=== PATIENT | male | born 1945 | race Caucasian/White ===

== ENCOUNTER 2017-02-21 13:41 | Emergency (ER) | payer MEDICARE, BC ==
--- NOTE | 2017-03-20 13:26 | EKG ---
Test Reason : Blood Pressure : / mmHG Vent. Rate : 056 BPM Atrial Rate : 056 BPM P-R Int : 276 ms QRS Dur : 116 ms QT Int : 490 ms P-R-T Axes : 016 003 176 degrees QTc Int : 472 ms Sinus bradycardia with 1st degree A-V block Inferior infarct , age undetermined T wave abnormality, consider lateral ischemia Abnormal ECG Confirmed by TOSIN DWYER ([id number]), development editor LOUANN BURK ([id number]) on 03/20/2017 1:26:10 PM Referred By: Confirmed By:TOSIN DWYER
== END 2017-02-21 14:41 | disposition home or self-care (01) ==
LOC: ERS 13:41
DX: I95.1 Orthostatic hypotension (principal); I25.2 Old myocardial infarction; I10 Essential (primary) hypertension; Z79.82 Long term (current) use of aspirin; Z79.899 Other long term (current) drug therapy; Z79.84 Long term (current) use of oral hypoglycemic drugs
CPT/HCPCS: 93005

== ENCOUNTER 2017-05-14 16:43 | Inpatient (IN) | payer MEDICARE, BC ==
[~2017-05-14 16:43] MED LIST: ISOVUE-370 76%-LOCM 1 ML ONE
[2017-05-14] MEDS ORDERED: Ondansetron HCl/PF 4 MG/2 ML Vial ONE (16:57)
[2017-05-14 17:12] LABS: #Eosinphils 0.3 thou/uL (0.0-0.7); #Lymphocytes 2.3 thou/uL (1.20-3.40); #Monocytes 0.7 thou/uL (0.11-0.59); #Neutrophils 6.2 thou/uL (1.40-6.50); %Basophils 0.5 % (0.0-1.0); %Eosinophils 3.6 % (0.0-10.0); %Lymphocytes 24.1 % (21.0-51.0); %Monocytes 7.5 % (0.0-10.0); %Neutrophils 64.4 % (42.0-75.0); Mean Corpuscular HGB CONC 32.7 g/dL (32.0-36.0); Mean Corpuscular Hemoglobin 28.7 pg (27.0-31.0); Mean Corpuscular Volume 87.7 fl (80.0-94.0); Mean Platelet Volume 6.8 fL (7.4-10.4); Platelet Count 263 thou/uL (130-400); RBC Distribution Width 13.8 % (11.5-14.5); Red Blood Cell (RBC) Count 4.54 mill/uL (4.70-6.10); White Blood Cell (WBC) Count 9.6 thou/uL (4.8-10.8)
[2017-05-14 17:31] LABS: ALT (SGPT) 21 U/L (8-55); AST (SGOT) 23 U/L (5-34); Albumin 4.1 g/dL (3.4-4.8); Alkaline Phosphatase 58 U/L (40-150); Anion Gap 15 mmol/L (10-20); BUN (Urea Nitrogen) 12 mg/dL (8.4-25.7); Bilirubin, Total 0.8 mg/dL (0.2-1.2); CK (CPK) 70 U/L (30-200); Calc. Creatinine Clearance 0 mL/min (70-130); Calcium 9.7 mg/dL (7.8-10.44); Carbon Dioxide 23 mmol/L (23-31); Chloride 106 mmol/L (98-107); Estimated GFR-MDRD 77; Globulin 3.7 g/dL (2.4-3.5); Glucose 102 mg/dL (83-110); Lipase 15 U/L (8-78); Potassium 4.3 mmol/L (3.5-5.1); Protein, Total 7.8 g/dL (5.8-8.1); Sodium 140 mmol/L (136-145)
[2017-05-14 17:35] LABS: CKMB 2.3 ng/mL (0-6.6)
[2017-05-14 17:45] LABS: Troponin I 1.037 ng/mL (< 0.028)
--- NOTE | 2017-05-14 18:03 | RAD ---
PORTABLE UPRIGHT FRONTAL CHEST RADIOGRAPH 05/14/17 COMPARISON: 04/06/16 HISTORY: Chest pain. FINDINGS: Stable prominence of the cardiac silhouette. Stable midline sternotomy wires and mediastinal clips. N o pneumothorax, pleural fluid, lobar consolidation, or alveolar edema. IMPRESSION: Stable appearance of the chest. No focal consolidation or alveolar edema. POS: H
[2017-05-14] MEDS ORDERED: Enoxaparin Sodium 100 MG/ML SYRINGE ONE (18:52)
--- NOTE | 2017-05-14 19:06 | CT ---
CT ANGIOGRAM OF THE CHEST AND ABDOMEN 05/14/17 COMPARISON: None. HISTORY: Upper epigastric pain, pain radiating into upper abdomen. Assess for abdominal aortic aneurysm or dis section. TECHNIQUE: Serial axial CT imaging at 2.5 mm intervals obtained from the thoracic inlet through the bifurcation of the abdominal aorta with IV contrast using a CT angiogram protocol. Coronal and sagittal 3D reform atted imaging obtained. FINDINGS: There is no axillary, mediastinal, or hilar lymphadenopathy seen. Midline sternotomy wires and medias tinal clips are present, evidence of prior CABG. There is no significant pleural, pericardial or mediastinal fluid. There is no pneumothorax seen on e ither side. There are scattered mild peripheral areas of increased linear density noted within bilateral upper lo bes, left greater than right, the right middle lobe laterally, and bilateral lower lobes inferiorly, left greater than right. Peripheral patchy reticulonodular densities are noted within the inferior as pect of bilateral lower lobes, left greater than right, etiology and significance uncertain given lac k of comparison imaging. No enlarged mediastinal or hilar lymph nodes. The thoracic aorta demonstrates atherosclerotic calcification at the level of the arch and descending thoracic aorta, mild. There is no evidence for aneurysm or dissection involving the thoracic aorta. Evaluation of the imaged bowel is unremarkable, limited without oral contrast media. There is nonspecific mild gallbladder distention. The gallbladder measuring 5.8 cm in greatest transv erse dimension. Hepatic and splenic granulomata are noted. There is pancreatic atrophy. A duodenal diverticulum is present. There is a mass within the adrenal gland on the left, measuring 2.5 cm, with Hounsfield units of 65-7 0. Mild bilateral renal cortical thinning is noted, left greater than right. Subcentimeter mid pole nalini l hypodensity noted anteriorly on the left, too small to characterize. Incidental note is made of diverticulosis of the descending colon. The abdominal aorta demonstrates no evidence for aneurysm or dissection. There is atherosclerotic calcification of the infrarenal abdominal aorta. there is atherosclerotic ca lcification involving bilateral common iliac arteries in the imaged portions of bilateral internal an d external iliac arteries. No abdominal lymphadenopathy. Osseous structures demonstrate multilevel degenerative change within the spine, primarily effecting t he facet joints of the lower lumbar spine. There is multilevel mid thoracic spine anterior osteophyte formation on the right. There is no worrisome lytic or blastic bone lesion. IMPRESSION: 1. No evidence for abdominal or thoracic aortic aneurysm or dissection. 2. Mild patchy reticulonodular densities noted peripherally within the lung bases, left greater than right. Findings may be chronic in nature. A mild degree of infectious pneumonitis cannot be excl uded. 3. Nonspecific adrenal mass on the left. This does not meet criteria for an adrenal adenoma and thus followup CT examination using an adrenal mass protocol is advised on a nonemergent basis. 4. Nonspecific mild gallbladder distention. 5. Diverticulosis of the descending colon. POS: IRWIN
[2017-05-14] MEDS ORDERED: Nitroglycerin 0.4 MG TAB (25 Tab Bottle) SL PRN (20:20)
[2017-05-14] MEDS ORDERED: Ondansetron HCl/PF 4 MG/2 ML Vial IVP PRN ×2 (20:22→22:49)
[2017-05-14] MEDS ORDERED: Acetaminophen 325 MG TAB PO PRN ×2 (20:22→22:49)
[2017-05-14] MEDS ORDERED: Bisacodyl 10 MG SUPP PR PRN (20:22)
[2017-05-14] MEDS ORDERED: HYDROcodone/Acetaminophen 5/325 mg Tablet PO PRN ×2 (20:22→22:49)
[2017-05-14] MEDS ORDERED: Milk Of Magnesia 30 ML UDCUP PO PRN ×3 (20:22→22:49)
[2017-05-14] MEDS ORDERED: Mag-Al 1200 mg/1200 mg/30 ML UDCUP ONE (20:49)
[2017-05-14] MEDS ORDERED: Lidocaine Viscous Sol 2% 15 ml UD Cup ONE (20:49)
[2017-05-14] MEDS ORDERED: Docusate 100 MG CAP PO SCH (21:00)
[2017-05-14 21:50] LABS: Critical Call Chem Troponin I RESULT DECREASING; Troponin I 0.926 ng/mL (< 0.028)
[2017-05-14] MEDS ORDERED: Ibuprofen 800 MG TAB ONE (21:55)
[2017-05-14] MEDS ORDERED: Nitroglycerin 0.4 MG TAB (25 Tab Bottle) PO PRN (22:49)
[2017-05-14] MEDS ORDERED: HumaLOG 300 UNITS/3 ML VIAL SC PRN (22:49)
[2017-05-14] MEDS ORDERED: Dextrose 5% in Water 1,000 ML IV PRN (22:49)
[2017-05-14] MEDS ORDERED: Temazepam 15 MG CAP PO PRN (22:49)
[2017-05-14] MEDS ORDERED: Benzonatate 100 MG CAP PO PRN (22:49)
[2017-05-14] MEDS ORDERED: Enalaprilat Dihydrate 1.25 MG/ML VIAL SLOW IVP PRN (22:49)
[2017-05-14] MEDS ORDERED: Dextrose 50% Abboject 50 ML SYRINGE SLOW IVP PRN (22:49)
[2017-05-14] MEDS ORDERED: Ondansetron ODT 4 MG TAB PO PRN (22:49)
[2017-05-14] MEDS ORDERED: Morphine 5 MG/ML SYRINGE SLOW IVP PRN (22:49)
[2017-05-14] MEDS ORDERED: Nitroglycerin 2% Ointment 1 INCH/1 GM Packet TOP SCH (23:00)
[2017-05-14] MEDS: Morphine 5 MG/ML SYRINGE SLOW IVP PRN (23:37)
--- NOTE | 2017-05-14 23:43 | HP ---
PRIMARY CARE PHYSICIAN: Malcom Wei M.D. CHIEF COMPLAINT: Epigastric pain. HISTORY OF PRESENT ILLNESS: Mr. Rosen is a pleasant 72-year-old gentleman that has a history of hyp ertension, diabetes mellitus, and coronary artery disease. He also has a history of chronic systolic heart failure with an ejection fraction of 35% to 40%. He was in his usual state of health until . He had gone to [place] to check on a condo that he has. When he started having severe epig astric pain and he says it was radiating to both rib cages. There, he had gone to the hospital in [facility], they had checked an EKG and said that there was no change from a previous one that he had had a few years prior, monitor him overnight and discharged him home. He says that the pain calm down. Then, he had to drive back to the [facility] and albeit through a snowstorm and his says it was very stressful drive. Then, he arrived here, he was walking around in the [place] and around 2 :00 p.m., he started having very intense pain again in the epigastric region. This time he had some nausea, but no vomiting. He felt very weak, had to sit down. For this reason, he drove himself to [facility] emergency room. In the ER, he had a troponin which was drawn and it was elevated at 1.037. EKG s howed an old inferior AL, but no new changes. He is being admitted for non-ST elevation myocardial i nfarction. The patient still has about 2/3 pain in the epigastric region. He denies any PND, no ort hopnea. He denies any lower extremity edema. He says he did have problems like that, but it stopped over the summer. REVIEW OF SYSTEMS: Constitutional: There have been no fevers, chills, no night sweats, no weight lo ss. HEENT: No headaches, no dizziness, no visual changes, no sore throat, rhinorrhea, neck pain, no adenopathy. Pulmonary: No hemoptysis, no cough, no wheezing. Cardiovascular: As the history of p resent illness. Gastrointestinal: No abdominal pain. He has had some nausea, no vomiting, no marin e in bowels. Genitourinary: No urinary frequency, hematuria, no hesitancy. Neurologic: No focal w eakness, numbness, no seizures. Musculoskeletal: No muscle pain, weakness or joint pains. Skin and Integument: No skin changes. No rash. Psychiatric: He has had a lot of stress related to some da mage that was done for his vacation condominium, but no depression. PAST MEDICAL HISTORY: Significant for chronic systolic heart failure with an ejection fraction of 35 % to 40% and moderate MR; coronary artery disease; hypertension; diabetes mellitus, type 2; hyperlipi demia. PAST SURGICAL HISTORY: He has had a bypass grafting x4, an attempt at a stent, 2 of that occluded gr afts, but this was unsuccessful. He has had a hernia repair. ALLERGIES: PENICILLIN. FAMILY HISTORY: Significant for COPD. SOCIAL HISTORY: He is , has two sons. He is a nonsmoker, nondrinker and he wishes to be a [employer]. CURRENT MEDICATIONS: Include aspirin 325 mg daily, atorvastatin 80 mg daily, carvedilol 6.25 mg tres y, Lasix 40 mg once a day, isosorbide mononitrate 60 mg once a day, lisinopril 10 mg twice a day, met formin 1000 mg twice a day, temazepam 30 mg daily, allopurinol 300 mg daily, Ranexa 1000 mg twice marc ly and Zetia 5 mg daily. PHYSICAL EXAMINATION: GENERAL: He is alert and oriented. He appears to be in no acute distress. VITAL SIGNS: Blood pressure was 163/103, heart rate 50, respiratory rate is 16, temperature is 97.7. HEENT: Pupils are equal, round, and reactive. Extraocular muscles are intact. His sclerae are anic teric. Throat: There is no erythema, no exudates. NECK: No adenopathy, no bruits. LUNGS: He has got some bilateral crackles, but they are very fine crackles. CARDIOVASCULAR: He has a normal S1, S2. He did have a grade 2/6 systolic murmur. ABDOMEN: Obese, it is soft, it is nontender, nondistended. Positive for bowel sounds. There is no rebound or guarding. EXTREMITIES: There is no clubbing, cyanosis, no edema. NEUROLOGICALLY: The exam is nonfocal. SIGNIFICANT LABORATORY AND X-RAY FINDINGS: His chest x-ray showed no focal infiltrates or edema. He had a CT dissection protocol showing no evidence for intra-abdominal or thoracic aortic aneurysm. T here are some mild reticulonodular densities in the lung bases, left greater than right, could be a c hronic or an infectious pneumonitis. There is a nonspecific adrenal mass on the left. Sodium was 14 0, potassium 4.3, chloride is 106, CO2 is 23, BUN of 12, creatinine 0.96, glucose was 102. White blo od cell count was 9.6, hemoglobin 13, hematocrit is 39.8, platelet count is 263. ASSESSMENT AND PLAN: 1. This is a pleasant 72-year-old gentleman that presents to the emergency room with complaints of e pigastric pain. His symptoms are most likely related to an acute coronary syndrome. He has a known history of coronary artery disease and his troponin is elevated. For this reason, he will be admitte d to telemetry. We will start him on aspirin, nitrates, and Lovenox. We will continue his beta bloc ker. Consult Cardiology in the a.m. He may also need morphine for pain control as he has some ongoi ng discomfort. 2. With regards to diabetes, his metformin will be held in the event that he needs a cardiac cathete rization and he will be placed on a sliding scale insulin. His blood pressure is little bit elevated . Hopefully, with the nitrate, this will help the blood pressure. If not, p.r.n. medication to help lower the blood pressure such as Vasotec can be used. The patient is concerned that his symptoms ar e more GI related and not cardiac. However, I did explain to him with elevated troponin, we need to rule out cardiac causes first. Should cardiac causes be ruled out, then a GI workup can be undertake n.
[2017-05-15 00:02] LABS: Critical Call Chem Troponin I RESULT DECREASING; Troponin I 0.891 ng/mL (< 0.028)
[2017-05-15] MEDS: Morphine 5 MG/ML SYRINGE SLOW IVP PRN ×2 (04:03→07:54)
[2017-05-15] MEDS: Nitroglycerin 2% Ointment 1 INCH/1 GM Packet TOP SCH ×3 (05:23→21:09)
[2017-05-15 05:36] LABS: Anion Gap 14 mmol/L (10-20); BUN (Urea Nitrogen) 12 mg/dL (8.4-25.7); Calc. Creatinine Clearance 107 mL/min (70-130); Calcium 9.3 mg/dL (7.8-10.44); Carbon Dioxide 21 mmol/L (23-31); Cardiac Risk 5.1 (Less than 4.5); Chloride 106 mmol/L (98-107); Cholesterol 138 mg/dl (< 200 Desired); Estimated GFR-MDRD Greater than 90; Glucose 150 mg/dL (83-110); HDL Cholesterol 27 mg/dL (>60 Neg Risk); LDL Cholesterol, Calculated 89 mg/dL; Potassium 4.2 mmol/L (3.5-5.1); Sodium 137 mmol/L (136-145); Triglycerides 109 mg/dL (Less than 150)
[2017-05-15 05:40] LABS: Critical Call Chem Troponin I RESULT DECREASING; Troponin I 0.765 ng/mL (< 0.028)
[2017-05-15] MEDS ORDERED: Loratadine 10 MG TAB PO PRN (07:21)
[2017-05-15] MEDS ORDERED: Artificial Tears 18 DROP/0.9 ML EA EYE PRN (07:21)
[2017-05-15] MEDS ORDERED: Diabetic Tussin 200 MG/10 ML UDCUP PO PRN (07:21)
[2017-05-15] MEDS ORDERED: Mag-Al 1200 mg/1200 mg/30 ML UDCUP PO PRN (07:21)
[2017-05-15] MEDS ORDERED: hydrALAZINE 20 MG/ML VIAL SLOW IVP PRN (07:21)
[2017-05-15] MEDS ORDERED: Loperamide HCl 2 MG CAP PO PRN (07:21)
[2017-05-15] MEDS ORDERED: Sodium Chloride 0.65% Nasal 44 ML BOT EA NARE PRN (07:21)
[2017-05-15] MEDS ORDERED: Eucerin (Mineral Oil/Petrolatum,White) 30 gm Jar TOP PRN (07:21)
[2017-05-15] MEDS: Aspirin 325 MG TAB PO SCH (07:53)
[2017-05-15] MEDS: Allopurinol 300 MG TAB PO SCH (07:53)
[2017-05-15] MEDS: Carvedilol 6.25 MG TAB PO SCH ×2 (07:53→21:06)
[2017-05-15] MEDS: Ezetimibe 10 MG TAB PO SCH (07:54)
[2017-05-15] MEDS: Multivitamin W/ Minerals 1 TAB PO SCH (07:56)
[2017-05-15] MEDS: Docusate 100 MG CAP PO SCH ×2 (07:56→21:06)
[2017-05-15] MEDS ORDERED: Enoxaparin Sodium 30 MG/0.3 ML SYRINGE SC SCH (08:00)
[2017-05-15] MEDS ORDERED: Famotidine 20 MG TAB PO SCH (09:00)
[2017-05-15] MEDS ORDERED: Enoxaparin Sodium 100 MG/ML SYRINGE SC SCH (09:00)
[2017-05-15] MEDS ORDERED: Aspirin 325 MG TAB PO SCH (09:00)
[2017-05-15] MEDS ORDERED: Lisinopril 10 MG TAB PO SCH (09:00)
[2017-05-15] MEDS ORDERED: Carvedilol 6.25 MG TAB PO SCH (09:00)
--- NOTE | 2017-05-15 09:57 | PDOC.PN ---
- Subjective Encounter Start Date: 05/15/17 Encounter Start Time: 08:30 Patient seen and examined. this morning he has again epigastric abdominal pain, No overnight events - Objective Resuscitation Status: Resuscitation Status FULL:Full Resuscitation MAR Reviewed: Yes Vital Signs & Weight: Vital Signs (12 hours) Temp Pulse Resp BP BP Pulse Ox 05/15/17 07:54 180/106 H 05/15/17 07:53 180/106 H 05/15/17 07:47 98.8 F 74 16 186/99 H 96 05/15/17 04:02 180/106 H 05/15/17 03:31 98.7 F 82 15 180/106 H 97 05/15/17 02:25 96 05/14/17 22:30 98.2 F 65 16 168/85 H 97 05/14/17 22:25 98.2 F 65 16 168/85 H 97 Weight Weight 198 lb 4.8 oz I&O: 05/14/17 05/15/17 05/16/17 06:59 06:59 06:59 Intake Total 240 Output Total 50 Balance 190 Result Diagrams: 05/14/17 17:00 05/15/17 04:47 Additional Labs: Accuchecks 05/15/17 05:54 POC Glucose 158 H EKG Reviewed by me: Yes (nsr) Phys Exam - Physical Examination Constitutional: NAD HEENT: PERRLA, moist MMs, sclera anicteric Neck: no JVD, supple Respiratory: no wheezing, no rales, no rhonchi Cardiovascular: RRR, no significant murmur, no rub Gastrointestinal: soft, non-tender, no distention, positive bowel sounds Musculoskeletal: no edema, pulses present Neurological: non-focal, normal sensation, moves all 4 limbs Psychiatric: normal affect, A&O x 3 Skin: no rash, normal turgor Dx/Plan (1) NSTEMI (non-ST elevated myocardial infarction) Code(s): I21.4 - NON-ST ELEVATION (NSTEMI) MYOCARDIAL INFARCTION Status: Acute (2) Chronic systolic heart failure Code(s): I50.22 - CHRONIC SYSTOLIC (CONGESTIVE) HEART FAILURE Status: Chronic (3) Diabetes type 2, controlled Code(s): E11.9 - TYPE 2 DIABETES MELLITUS WITHOUT COMPLICATIONS Status: Chronic (4) Dyslipidemia Code(s): E78.5 - HYPERLIPIDEMIA, UNSPECIFIED Status: Chronic (5) Gout Code(s): M10.9 - GOUT, UNSPECIFIED Status: Chronic (6) Hypotension Status: Chronic - Plan cont current plan of care * home medication reconciled * selected home medication started * currently on [facility] tehrapy for NSTEMI, including lovenox * cardiology consulted * if he had no echo done recently at cardiology office, will do here in hospital * medication reviewed as below * symptomatic treatment. Review of Systems - Review of Systems Constitutional: negative: fever, chills, sweats, weakness, malaise, other ENT: negative: Ear Pain, Ear Discharge, Nose Pain, Nose Discharge, Nose Congestion, Mouth Pain, Mouth Swelling, Throat Pain, Throat Swelling, Other Respiratory: negative: Cough, Dry, Shortness of Breath, Hemoptysis, SOB with Excertion, Pleuritic Pain, Sputum, Wheezing Cardiovascular: negative: chest pain, palpitations, orthopnea, paroxysmal nocturnal dyspnea, edema, light headedness, other Gastrointestinal: Abdominal Pain. negative: Nausea, Vomiting, Diarrhea, Constipation, Melena, Hematochezia, Other Genitourinary: negative: Dysuria, Frequency, Incontinence, Hematuria, Retention , Other Musculoskeletal: negative: Neck Pain, Shoulder Pain, Arm Pain, Back Pain, Hand Pain, Leg Pain, Foot Pain, Other Skin: negative: Rash, Lesions, Chaka, Bruising, Other - Medications/Allergies Allergies/Adverse Reactions: Allergies Allergy/AdvReac Type Severity Reaction Status Date / Time Penicillins Allergy Intermediate Swollen Verified 05/14/17 22:54 Lips Medications: Current Medications Acetaminophen (Tylenol) 650 mg PO Q4H PRN PRN Reason: Headache/Fever or Pain Hydrocodone Bitart/Acetaminophen ([place] 5/325) 1 tab PO Q4H PRN PRN Reason: Moderate Pain (4-6) Al Hydroxide/Mg Hydroxide (Maalox) 15 ml PO Q4H PRN PRN Reason: Heartburn or Indigestion Allopurinol (Zyloprim) 300 mg PO DAILY REPLACED BY [facility] Last Admin: 05/15/17 07:53 Dose: 300 mg Artificial Tears (Tears Naturale) 0 drop EA EYE PRN PRN PRN Reason: Dry Eyes Aspirin (Aspirin) 325 mg PO DAILY REPLACED BY [facility] Last Admin: 05/15/17 07:53 Dose: 325 mg Atorvastatin Calcium (Lipitor) 80 mg PO HS REPLACED BY [facility] Benzonatate (Tessalon) 100 mg PO Q4H PRN PRN Reason: Cough Carvedilol (Coreg) 12.5 mg PO BID REPLACED BY [facility] Last Admin: 05/15/17 07:53 Dose: 12.5 mg Dextrose/Water (Dextrose 50%) 25 gm SLOW IVP PRN PRN PRN Reason: Hypoglycemia Docusate Sodium (Colace) 100 mg PO BID REPLACED BY [facility] Last Admin: 05/15/17 07:56 Dose: Not Given Ezetimibe (Zetia) 10 mg PO DAILY REPLACED BY [facility] Last Admin: 05/15/17 07:54 Dose: 10 mg Enalaprilat (Vasotec) 1.25 mg SLOW IVP Q6H PRN PRN Reason: Blood Pressure Last Admin: 05/15/17 04:02 Dose: 1.25 mg Enoxaparin Sodium (Lovenox) 90 mg SC 0900,2100 REPLACED BY [facility] Last Admin: 05/15/17 07:56 Dose: Not Given Famotidine (Pepcid) 20 mg PO BID REPLACED BY [facility] Last Admin: 05/15/17 07:54 Dose: 20 mg Glucagon (Glucagon) 1 mg IM PRN PRN PRN Reason: Hypoglycemia Guaifenesin (Robitussin Sf) 200 mg PO Q4H PRN PRN Reason: Cough Hydralazine HCl (Apresoline) 10 mg SLOW IVP Q4H PRN PRN Reason: Systolic BP > 180 Dextrose/Water (D5w) 1,000 mls @ 0 mls/hr IV .Q0M PRN; As Directed PRN Reason: Hypoglycemia Insulin Human Lispro (Humalog) 0 units SC .MODERATE SLIDING SC PRN PRN Reason: Moderate Correctional Scale Insulin Human Lispro (Humalog) 0 units SC .BEDTIME SLIDING SC PRN PRN Reason: Bedtime Correctional Scale Iron/Minerals/Multivitamins (Theragran M) 1 tab PO DAILY REPLACED BY [facility] Last Admin: 05/15/17 07:56 Dose: Not Given Lisinopril (Zestril) 10 mg PO BID REPLACED BY [facility] Last Admin: 05/15/17 07:54 Dose: 10 mg Loperamide HCl (Imodium) 2 mg PO PRN PRN PRN Reason: Diarrhea/Loose Stools Loratadine (Claritin) 10 mg PO DAILYPRN PRN PRN Reason: Sinus Symptoms Magnesium Hydroxide (Milk Of Magnesium) 30 ml PO DAILYPRN PRN PRN Reason: Constipation Mineral Oil/White Petrolatum (Eucerin Cream) 0 gm TOP BIDPRN PRN PRN Reason: Dry Skin Morphine Sulfate (Morphine) 2 mg SLOW IVP Q2H PRN PRN Reason: Chest Pain Morphine Sulfate (Morphine) 4 mg SLOW IVP Q4H PRN PRN Reason: Pain Last Admin: 05/15/17 07:54 Dose: 4 mg Nitroglycerin (Nitrostat) 0.4 mg PO Q5MIN PRN PRN Reason: Chest Pain Nitroglycerin (Nitro-Bid 2% Ointment) 0.5 inch TOP Q8HR KIM Last Admin: 05/15/17 05:23 Dose: 0.5 inch Ondansetron HCl (Zofran Odt) 4 mg PO Q6H PRN PRN Reason: Nausea/Vomiting Last Admin: 05/15/17 08:03 Dose: 4 mg Ondansetron HCl (Zofran) 4 mg IVP Q6H PRN PRN Reason: Nausea/Vomiting Ranolazine (Ranexa) 1,000 mg PO BID KIM Last Admin: 05/15/17 07:56 Dose: Not Given Sodium Chloride (Summers Nasal [place] 0.65%) 0 ml EA NARE QIDPRN PRN PRN Reason: Nasal Congestion Sodium Chloride (Flush - Normal Saline) 10 ml IVF Q12HR KIM Sodium Chloride (Flush - Normal Saline) 10 ml IVF PRN PRN PRN Reason: Saline Flush Temazepam (Restoril) 30 mg PO HS KIM
[2017-05-15] MEDS ORDERED: Iopamidol 370 76% 50 ML VIAL FS ONE (11:08)
[2017-05-15] MEDS ORDERED: Iopamidol 370 76% 100 ML VIAL ONE (11:08)
[2017-05-15 12:41] LABS: Critical Call Chem Troponin I RESULT DECREASING; Troponin I 0.568 ng/mL (< 0.028)
[2017-05-15] MEDS ORDERED: Lidocaine 1% (PF) 30 ML VIAL ONE (13:34)
[2017-05-15] MEDS ORDERED: Communication Order-Pharmacy FS SCH (14:00)
[2017-05-15] MEDS ORDERED: Sodium Chloride 0.9% 1,000 ML IV SCH (14:00)
[2017-05-15] MEDS ORDERED: Heparin 10,000 UNITS/1 ML VIAL ONE (14:25)
[2017-05-15] MEDS ORDERED: Fentanyl 100 MCG/2 ML VIAL ONE (14:35)
[2017-05-15] MEDS ORDERED: Midazolam HCl 2 mg/2 ml Vial ONE (14:35)
[2017-05-15] MEDS ORDERED: Protamine Sulfate 50 MG/5 ML VIAL ONE (15:02)
[2017-05-15] MEDS ORDERED: hydrALAZINE 20 MG/ML VIAL ONE (15:20)
[2017-05-15] MEDS ORDERED: Nitroglycerin 0.4 MG TAB (25 Tab Bottle) SL PRN (15:24)
[2017-05-15] MEDS ORDERED: Acetaminophen/Codeine 30-300mg Tablet PO PRN (15:24)
[2017-05-15] MEDS ORDERED: traMADol HCl 50 MG TAB PO PRN (15:24)
[2017-05-15] MEDS ORDERED: Sodium Chloride 0.9% 200 ML IV PRN (15:30)
--- NOTE | 2017-05-15 16:26 | CON ---
DATE OF CONSULTATION: 05/15/2017 HISTORY OF PRESENT ILLNESS: Jose Rosen is a 72-year-old white male that I initially evaluated in 09/1995. One year prior to that, he had pain in his scapula when he would exert himself, but this resolved. With this, he would stop what he was doing and rest and it will resolve in several minutes. Over the 3-4 months prior to his admission, he noted that developed this and this radiated to both sides of his back and then into his chest. He described this as a burning sensation. He also will get this discomfort trying to walk on the treadmill, after stopping and resting for 2-3 minutes it would resolve. He did not have any rest or nocturnal episodes. This started to come on with less and less exertion. He underwent treadmill testing by Dr. Wei and he developed his usual pain at 4 minutes and 46 seconds with [address] segment depression in II, III, F, V4 through V5 and [address] segment depression in V6. The pain resolved quickly after stopping. He developed more prominent downsloping ST segments and inverted T waves in those leads. He underwent catheterization and was found to have normal left ventricular function with ejection fraction of 60 % with mild mitral regurgitation. There was a 60%-70% distal left main tapering , 70% proximal LAD. Circumflex had a 40% first obtuse marginal stenosis, 50% mid circumflex stenosis and a 70% left PDA stenosis. The right coronary was very small and normal. He then underwent CABG x4 with sequential CONTRERAS to the LAD and diagonal and saphenous vein graft to obtuse marginal and the left PDA. He had distal disease in his vessels, most marked in the LAD system. Initially after surgery, he had a bifascicular block which resolved. He did well after surgery and was followed intermittently until 1998. He was not seen again until 04/2007. He had been in [place] vacationing and was feeling well and then had onset of severe substernal chest pain. He was hospitalized in hospital in [place], underwent cardiac catheterization. This revealed total occlusion of the left main as well as proximal LAD and circumflex. The right coronary artery was occluded. The CONTRERAS graft was patent to the diagonal and LAD in sequential fashion. Saphenous vein graft to circumflex showed the circumflex was small with faint filling. The graft to left posterior descending was patent. Ejection fraction was 55%-60% with inferior hypokinesis. Attempt was made to open the graft to the circumflex obtuse marginal. Wire was placed, balloon inflations were done, but there was no sikh of flow. Also, thrombectomy catheter was used with no sikh of flow. At the conclusion, the circumflex graft (obtuse marginal) flows were limited. He went to see Dr. Wei with recurrence of severe substernal pain radiating to his back. He went to the hospital, was given Plavix, oxygen and had resolution of his discomfort. Upon review of his records, it was felt that no further evaluation was needed except for further medication increase. He was placed on Plavix and Imdur. He was seen in 05/2007, was occasionally having chest pain, Imdur was continued. In 07/2007, chest pain appeared to be controlled. He continued intermittently to have chest pain, relieved with sublingual nitroglycerin. In 01/2009, he was not having any chest discomfort. He was not seen again until 02/28/2013. For 6 months, he stated that he had been feeling poorly, having chest pain associated with exertion carrying firewood. He occasionally takes nitroglycerin, this would resolve in 5-10 minutes. He was having 3-4 episodes per week. He then returned on 03/01/2013 for Lexiscan testing. He stated that he could walk on the treadmill. He developed chest discomfort with [address] segment elevation in lead 3, [address] segment depression in V5 and V6. He was given sublingual nitroglycerin with resolution of his pain. He had PVCs during recovery. Second sublingual nitroglycerin was given. Cardiolite revealed inferolateral fixed defect and evidence of inferoseptal ischemia. It was recommended he undergo cardiac catheterization with the positive treadmill. At catheterization, he was found to have inferior akinesis, moderate global hypokinesis with ejection fraction of 35%-40% with mild mitral regurgitation. The left main was totally occluded. The right coronary was totally occluded proximally which was a very small vessel. Bypass grafts revealed patent CONTRERAS to the diagonal-LAD sequentially. This filled the left posterior descending artery and the obtuse marginal arteries retrograde. The obtuse marginal graft was occluded (since 2007). The left posterior descending, graft was occluded. An attempt was made to cross the occlusion with a wire. The wire would advance 4-5 cm past the arterial occlusion; however, there never seemed to be good flow. It was felt that this probably was a chronic occlusion and probably had occurred 6 months previously when he started to have symptoms. Due to his diabetes, his blood sugars were checked after catheterization and Metformin was held. He was changed to carvedilol, lisinopril, and furosemide with left ventricular dysfunction. He was placed on Ranexa 500 b.i.d. which was then increased to 1000 b.i.d. With that medication change, stated he felt better than he had for months with increased energy and was walking in the [place] without chest discomfort like he had had before. His LDL was 80 and atorvastatin was increased from 40 to 80. Followup echocardiogram 3 months later revealed ejection fraction of 20%-25% with moderate to severe mitral regurgitation. He underwent transesophageal echo after he presented complaining of 2 nights of PND as well as some exertional angina for 2 weeks. There was severe left ventricular dysfunction with ejection fraction of 20%-25% and moderate to severe mitral regurgitation. He was placed on increased dose of furosemide. His films were again reviewed and his left posterior descending and obtuse marginal were very small vessels and probably cannot be re-bypassed. He was again reminded to severely restrict his salt intake. He had been drinking Gatorade previously. We discussed limiting fluid intake. He is continued to be followed in the office since that time and overall has done quite well. In 03/2016, he was admitted for syncope, probably due to orthostatic hypotension while standing 10 minutes at a . His chest discomfort appeared to be under good control. His ejection fraction did improve to 35%-40% on his last echocardiogram and his last echo revealed mild mitral regurgitation. For 2 weeks, he has developed epigastric discomfort, somewhat of a sharp pain and when it occurs, it lasts for many, many hours at a time. He denies any chest discomfort like he has had previously with his cardiac problems. He was in [place], had pain, went to the hospital there and apparently cardiac enzymes were unremarkable and he was released to drive home. He continues to have discomfort, came to the emergency room and found to have abnormal cardiac enzymes. PAST MEDICAL HISTORY: Hypertension, hyperlipidemia, and diabetes. MEDICATIONS: Allopurinol 300 daily, aspirin 325 daily, atorvastatin 80 at bedtime, carvedilol 12.5 b.i.d., Zetia 10 daily, Lasix 40 daily, isosorbide mononitrate 60 mg q.a.m., lisinopril 40 mg b.i.d., metformin 1000 mg b.i.d., multivitamin daily, Ranexa 1000 b.i.d., temazepam 30 at bedtime, and nitroglycerin p.r.n. ALLERGIES: PENICILLIN. SOCIAL HISTORY: Does not smoke or drink. 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 FAMILY HISTORY: Mother at 72 with COPD. REVIEW OF SYSTEMS: Twelve-point review of systems unremarkable except as noted above. PHYSICAL EXAMINATION: VITAL SIGNS: 154/73, pulse 71. HEENT: PERRL. CHEST: Clear. CARDIAC: S1 and S2 are normal, without any S3, S4. There is a 1-2/6 holosystolic murmur at the apex. ABDOMEN: Normal bowel sounds. He does have epigastric tenderness and somewhat right upper quadrant tenderness that exacerbates his abdominal pain that he has been having. There is no rebound. EXTREMITIES: Revealed no clubbing, cyanosis or edema. NEUROLOGIC: Grossly intact. SKIN: Warm and dry. LABORATORY DATA: EKG revealed normal sinus rhythm with old inferior infarction. Hemoglobin 13.0, hematocrit 39.8, white count 9600, platelets 263, 000. Sodium 137, potassium 4.2, chloride 106, carbon dioxide 21, BUN 12, creatinine 0.78. Cholesterol 138, triglycerides 109, HDL 27, LDL 89 (his last LDL in 03/2016 was 45). Troponin I has peaked at 1.037. CK-MB is normal. IMPRESSION: 1. Epigastric pain. It is unclear if this represents cholelithiasis, ulcer disease, etc. I do not feel that this pain is cardiac related. His liver enzymes including alkaline phosphatase are normal. 2. Non-ST elevation myocardial infarction. He has not had any chest discomfort and he has had no previous myocardial infarctions. 3. Status post coronary artery bypass graft x4 with two grafts patent (left internal mammary artery to diagonal-left anterior descending sequentially). The obtuse marginal and left posterior descending grafts are occluded (obtuse marginal graft in 2007 while in [place] and closure of left posterior descending graft probably during the summer of 2011). 4. Hypercholesterolemia, under poor control. However, has been under better control in the past. 5. Hypertension. 6. Diabetes. PLAN: The situation was discussed with the patient. I do not feel that his epigastric discomfort with palpable tenderness is cardiac in nature. However, it is hard to ignore his elevated troponin I and he certainly may have had a silent myocardial infarction. It was recommended he undergo cardiac catheterization and then further evaluation of his gastrointestinal complaints. Risks of catheterization were discussed including , myocardial infarction , dye reaction, vascular injury, CVA, transfusion, limb loss, renal loss, etc. Also, risks of intervention were discussed including , myocardial infarction, emergent CABG, restenosis, stent thrombosis, vessel perforation, etc. With potential need for further surgical intervention, only place a bare metal stent at this time if it is needed. MANISH
--- NOTE | 2017-05-15 18:20 | ULT ---
ABDOMINAL ULTRASOUND: 05/15/17 HISTORY: Epigastric pain. Gallbladder has a prominent fold. No gallstones identified. The common duct is normal caliber. The ga llbladder is mildly distended but the gallbladder wall thickness is normal. The aorta and IVC appear unremarkable as visualized. The liver and spleen appear unremarkable. The pa ncreas is mostly obscured. Both kidneys are imaged and appear unremarkable. IMPRESSION: Gallbladder is mildly distended with a prominent fold; however, no gallstones or other abnormality id entified. POS: [facility]
[2017-05-15] MEDS: HYDROcodone/Acetaminophen 5/325 mg Tablet PO PRN (19:18)
[2017-05-15] MEDS: Atorvastatin Calcium 40 MG TAB PO SCH (21:06)
[2017-05-15] MEDS: Lisinopril 20 MG TAB PO SCH (21:06)
[2017-05-15] MEDS: Sodium Chloride 0.9% 1,000 ML IV SCH (21:07)
[2017-05-15] MEDS: Temazepam 15 MG CAP PO SCH (21:07)
[2017-05-16] MEDS: Sodium Chloride 0.9% 1,000 ML IV SCH ×3 (05:32→20:45)
[2017-05-16] MEDS: Nitroglycerin 2% Ointment 1 INCH/1 GM Packet TOP SCH ×3 (05:39→20:19)
[2017-05-16 06:47] LABS: Hemoglobin 12.1 g/dL (14.0-18.0); Platelet Count 218 thou/uL (130-400)
--- NOTE | 2017-05-16 07:34 | PDOC.PN ---
- Subjective Encounter Start Date: 05/16/17 Encounter Start Time: 07:32 Subjective: Seen and examined --some abdominal discomfort - Objective Resuscitation Status: Resuscitation Status FULL:Full Resuscitation Vital Signs & Weight: Vital Signs (12 hours) Temp Pulse Resp BP BP BP Pulse Ox 05/16/17 04:30 94 L 05/16/17 03:27 96 05/16/17 03:23 98.0 F 76 18 164/77 H 94 L 05/15/17 23:26 98.5 F 73 17 135/67 05/15/17 21:06 183/87 H Weight Weight 198 lb 4.8 oz I&O: 05/15/17 05/16/17 05/17/17 06:59 06:59 06:59 Intake Total 240 1140 Output Total 50 475 Balance 190 665 Result Diagrams: 05/16/17 06:37 05/16/17 06:37 Additional Labs: Accuchecks 05/15/17 05/15/17 05/15/17 22:18 17:10 10:50 POC Glucose 204 H 127 H 161 H Phys Exam - Physical Examination Constitutional: NAD HEENT: PERRLA, moist MMs, sclera anicteric, TM's clear Neck: no nodes, no JVD, supple, full ROM Respiratory: no wheezing, no rales, no rhonchi Cardiovascular: RRR, no significant murmur, no rub Gastrointestinal: soft, non-tender, no distention, positive bowel sounds Musculoskeletal: no edema, pulses present Dx/Plan (1) NSTEMI (non-ST elevated myocardial infarction) Code(s): I21.4 - NON-ST ELEVATION (NSTEMI) MYOCARDIAL INFARCTION Status: Acute (2) Chronic systolic heart failure Code(s): I50.22 - CHRONIC SYSTOLIC (CONGESTIVE) HEART FAILURE Status: Chronic (3) Diabetes type 2, controlled Code(s): E11.9 - TYPE 2 DIABETES MELLITUS WITHOUT COMPLICATIONS Status: Chronic (4) Dyslipidemia Code(s): E78.5 - HYPERLIPIDEMIA, UNSPECIFIED Status: Chronic (5) Gout Code(s): M10.9 - GOUT, UNSPECIFIED Status: Chronic (6) Hypotension Status: Chronic - 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
[2017-05-16] MEDS: Furosemide 40 MG TAB PO SCH (08:18)
[2017-05-16] MEDS: Lisinopril 20 MG TAB PO SCH ×2 (08:19→20:17)
[2017-05-16] MEDS: Allopurinol 300 MG TAB PO SCH (08:19)
[2017-05-16] MEDS: Ezetimibe 10 MG TAB PO SCH (08:19)
[2017-05-16] MEDS: Aspirin 325 MG TAB PO SCH (08:19)
[2017-05-16] MEDS: Multivitamin W/ Minerals 1 TAB PO SCH (08:19)
[2017-05-16] MEDS: Carvedilol 6.25 MG TAB PO SCH ×2 (08:20→20:16)
[2017-05-16] MEDS: Docusate 100 MG CAP PO SCH ×2 (08:20→20:17)
[2017-05-16] MEDS: Atorvastatin Calcium 40 MG TAB PO SCH (20:16)
[2017-05-16] MEDS: Temazepam 15 MG CAP PO SCH (20:17)
[2017-05-16] MEDS: HYDROcodone/Acetaminophen 5/325 mg Tablet PO PRN (20:18)
[2017-05-17] MEDS: Acetaminophen/Codeine 30-300mg Tablet PO PRN (03:37)
[2017-05-17] MEDS: Morphine 5 MG/ML SYRINGE SLOW IVP PRN (04:13)
[2017-05-17] MEDS ORDERED: Furosemide 40 MG/4 ML VIAL ONE (04:47)
[2017-05-17 04:57] LABS: Actual Bicarbonate (HCO3a) 21.9 mEq/L (22-26); CO2 Tension 31.3 mmHg (35.0-45.0); Hematocrit-ABG 41.3 % (42.0-52.0); O2 Tension (PaO2) 191.1 mmHg (80.0-100.0); pH, Arterial 7.46 (7.35-7.45)
[2017-05-17 04:57] LABS: #Eosinphils 0.1 thou/uL (0.0-0.7); #Lymphocytes 0.9 thou/uL (1.20-3.40); #Monocytes 0.3 thou/uL (0.11-0.59); #Neutrophils 5.6 thou/uL (1.40-6.50); %Basophils 0.4 % (0.0-1.0); %Eosinophils 0.8 % (0.0-10.0); %Lymphocytes 13.1 % (21.0-51.0); %Monocytes 3.9 % (0.0-10.0); %Neutrophils 81.9 % (42.0-75.0); Hemoglobin 13.2 g/dL (14.0-18.0); Mean Corpuscular HGB CONC 33.2 g/dL (32.0-36.0); Mean Corpuscular Volume 87.4 fl (80.0-94.0); Mean Platelet Volume 6.7 fL (7.4-10.4); Platelet Count 226 thou/uL (130-400); RBC Distribution Width 13.8 % (11.5-14.5); Red Blood Cell (RBC) Count 4.55 mill/uL (4.70-6.10); White Blood Cell (WBC) Count 6.8 thou/uL (4.8-10.8)
[2017-05-17 04:58] LABS: Analyzer IN Cardio ER; Calcium, Ionized 1.2 mmol/L (1.12-1.30); Hemoglobin (Hb) 12.7 g/dL (14.0-18.0)
[2017-05-17 04:59] LABS: ALV-art Gradient 477.775 (0-20); Puncture Site LRA
--- NOTE | 2017-05-17 05:03 | PDOC.EVN ---
Event Note - Event Note Event Note: Rapid response called for hypoxia on this patient with markedly reduced EF and who had LHC yesterday, receiving 1 liter of fluids afterwards. Patient found on NRB but de-escalated to NC O2 and saturating at 100%. Breath sounds reduced. CBC, CMP, troponin, BNP and D-DImer ordered. ABG also- PO2 190 and PCO2 not elevated on NRB. CXR showed blunting of costophrenic angles and some vascular congestion. Received 2mg IV morphine and 40mg furosemide. Will f/u with results.
[2017-05-17 05:12] LABS: Anion Gap 15 mmol/L (10-20); BUN (Urea Nitrogen) 17 mg/dL (8.4-25.7); Calc. Creatinine Clearance 85 mL/min (70-130); Calcium 9.3 mg/dL (7.8-10.44); Carbon Dioxide 23 mmol/L (23-31); Chloride 102 mmol/L (98-107); Estimated GFR-MDRD 75; Glucose 147 mg/dL (83-110); Sodium 136 mmol/L (136-145)
[2017-05-17 05:17] LABS: Troponin I 0.204 ng/mL (< 0.028)
[2017-05-17] MEDS: Sodium Chloride 0.9% 1,000 ML IV SCH ×2 (05:27→16:17)
[2017-05-17 06:55] LABS: ALT (SGPT) 16 U/L (8-55); AST (SGOT) 14 U/L (5-34); Albumin 3.7 g/dL (3.4-4.8); Alkaline Phosphatase 66 U/L (40-150); Bilirubin, Direct 1.1 mg/dL (0.1-0.3); Bilirubin, Total 1.9 mg/dL (0.2-1.2); Protein, Total 7.7 g/dL (5.8-8.1)
[2017-05-17] MEDS: Nitroglycerin 2% Ointment 1 INCH/1 GM Packet TOP SCH (06:55)
[2017-05-17] MEDS ORDERED: ISOVUE-370 76%-LOCM 1 ML ONE (07:35)
--- NOTE | 2017-05-17 08:37 | RAD ---
PORTABLE CHEST 1 VIEW: Date: 05/17/17 Time: 0454 hours HISTORY: Low oxygen saturation. FINDINGS/IMPRESSION: There are changes of median sternotomy. The heart size is enlarged. There is mild prominence of pulmo nary vascularity. No lobar consolidation, pneumothoraces, or large effusions are seen. There is mild atelectatic change at the left lung base. POS: [facility]
--- NOTE | 2017-05-17 09:47 | CT ---
PRELIMINARY REPORT/[facility]/EMERGENCY AFTER HOURS PROCEDURE: EXAM: CT Angiography Chest With Intravenous Contrast CLINICAL HISTORY: 72 years old, male; Signs and symptoms and abnormal findings; Abnormal diagnostic tests; Elevated d-d patrice; Dyspnea and shortness of breath; Prior surgery; Patient HX: Eval for possible pe; Hypoxia, elev ated d-dimer TECHNIQUE: Axial computed tomographic angiography images of the chest with intravenous contrast using pulmonary embolism protocol. MIP reconstructed images were created and reviewed. COMPARISON: No relevant prior studies available. FINDINGS: Limited secondary to motion artifact. Pulmonary arteries: Enlargement of the main pulmonary artery No pulmonary embolism. Aorta: No acute findings. No thoracic aortic aneurysm. Lungs: Mild subsegmental atelectasis versus scarring No mass. No consolidation. Pleural space: Unremarkable. No significant effusion. No pneumothorax. Heart: Status post CABG. Moderate/severe cardiomegaly. No significant pericardial effusion. No evidence of RV dysfunction. Bones/joints: No acute fracture. No dislocation. Soft tissues: Unremarkable. Lymph nodes: Unremarkable. No enlarged lymph nodes. Questionable mild abnormal gallbladder wall thickening versus artifact. Minimal ascites surrounding t he spleen IMPRESSION: No definite large pulmonary embolism Limited evaluation for small segmental/subsegmental emboli in the lower lobes due to motion artifact Questionable pulmonary arterial hypertension Status post CABG and moderate/severe cardiomegaly Minimal ascites surrounding the spleen. Questionable mild gallbladder wall thickening. Further evalua tion as clinically indicated Thank you for allowing us to participate in the care of your patient. Dictated and Authenticated by: Mckay Haynes MD 05/17/2017 7:27 AM Central Time ([place] & [place]) FINAL REPORT CT PULMONARY ANGIOGRAM WITH IV CONTRAST AND 3D POSTPROCESSING: Date: 05/17/17 FINDINGS/IMPRESSION: I agree with the preliminary report given by Lulu. POS: [facility]
[2017-05-17] MEDS: Ezetimibe 10 MG TAB PO SCH (09:50)
[2017-05-17] MEDS: Docusate 100 MG CAP PO SCH ×2 (09:51→20:33)
[2017-05-17] MEDS: Carvedilol 6.25 MG TAB PO SCH ×2 (09:51→20:34)
[2017-05-17] MEDS: Aspirin 325 MG TAB PO SCH (09:51)
[2017-05-17] MEDS: Allopurinol 300 MG TAB PO SCH (09:51)
[2017-05-17] MEDS: Furosemide 40 MG TAB PO SCH (09:51)
[2017-05-17] MEDS: Multivitamin W/ Minerals 1 TAB PO SCH (09:51)
--- NOTE | 2017-05-17 09:56 | PDOC.PN ---
- Subjective Encounter Start Date: 05/17/17 Encounter Start Time: 07:00 -: old records requested/rev pt was short of breath last night, he has left side back pain, given morphine and now sleepy, he was hypertensive but now BP is low - Objective Resuscitation Status: Resuscitation Status FULL:Full Resuscitation MAR Reviewed: Yes Vital Signs & Weight: Vital Signs (12 hours) Temp Temp Pulse Pulse Pulse Pulse Resp 05/17/17 09:51 05/17/17 07:31 96.2 F L 67 9 L 05/17/17 06:35 79 05/17/17 06:30 80 05/17/17 05:05 99.7 F H 83 14 05/17/17 04:37 99.7 F H 90 91 84 05/17/17 03:10 05/17/17 00:00 98.7 F 77 18 Resp Resp Resp BP BP BP BP 05/17/17 09:51 117/59 L 05/17/17 07:31 05/17/17 06:35 05/17/17 06:30 05/17/17 05:05 05/17/17 04:37 26 H 24 H 24 H 195/109 H 189/90 H 168/80 H 05/17/17 03:10 05/17/17 00:00 BP Pulse Ox 05/17/17 09:51 05/17/17 07:31 94/56 L 100 05/17/17 06:35 91/54 L 05/17/17 06:30 90/51 L 05/17/17 05:05 144/69 H 99 05/17/17 04:37 05/17/17 03:10 96 05/17/17 00:00 179/84 H 96 Weight Weight 207 lb 4.8 oz I&O: 05/16/17 05/17/17 05/18/17 06:59 06:59 06:59 Intake Total 1140 1810 Output Total 475 1505 Balance 665 305 Result Diagrams: 05/17/17 04:50 05/17/17 04:50 Additional Labs: Accuchecks 05/17/17 05/17/17 05/17/17 06:06 05:23 04:40 POC Glucose 145 H 168 H 116 H 05/16/17 05/16/17 05/16/17 20:10 16:30 11:12 POC Glucose 171 H 147 H 168 H 05/16/17 06:21 POC Glucose 142 H Radiology Reviewed by me: Yes (CTA no PE) EKG Reviewed by me: Yes (NSR) Phys Exam - Physical Examination Constitutional: NAD HEENT: PERRLA, moist MMs, sclera anicteric Neck: no JVD, supple Respiratory: no wheezing, no rales, no rhonchi Cardiovascular: RRR, no significant murmur, no rub Gastrointestinal: soft, non-tender, no distention, positive bowel sounds Musculoskeletal: no edema, pulses present Neurological: moves all 4 limbs Lymphatic: no nodes Psychiatric: normal affect Skin: no rash, normal turgor Dx/Plan (1) NSTEMI (non-ST elevated myocardial infarction) Code(s): I21.4 - NON-ST ELEVATION (NSTEMI) MYOCARDIAL INFARCTION Status: Acute (2) Chronic systolic heart failure Code(s): I50.22 - CHRONIC SYSTOLIC (CONGESTIVE) HEART FAILURE Status: Chronic (3) Diabetes type 2, controlled Code(s): E11.9 - TYPE 2 DIABETES MELLITUS WITHOUT COMPLICATIONS Status: Chronic (4) Dyslipidemia Code(s): E78.5 - HYPERLIPIDEMIA, UNSPECIFIED Status: Chronic (5) Gout Code(s): M10.9 - GOUT, UNSPECIFIED Status: Chronic (6) Hypotension Status: Deleted - Plan cont current plan of care * hold BP meds for SBP <120 * cardiology following * medication reviewed as below * symptomatic treatment. Review of Systems - Review of Systems Eyes: negative: Pain, Vision Change, Conjunctivae Inflammation, Eyelid Inflammation, Redness, Other ENT: negative: Ear Pain, Ear Discharge, Nose Pain, Nose Discharge, Nose Congestion, Mouth Pain, Mouth Swelling, Throat Pain, Throat Swelling, Other Respiratory: Shortness of Breath. negative: Cough, Dry, Hemoptysis, SOB with Excertion, Pleuritic Pain, Sputum, Wheezing Cardiovascular: negative: chest pain, palpitations, orthopnea, paroxysmal nocturnal dyspnea, edema, light headedness, other Gastrointestinal: negative: Nausea, Vomiting, Abdominal Pain, Diarrhea, Constipation, Melena, Hematochezia, Other Genitourinary: negative: Dysuria, Frequency, Incontinence, Hematuria, Retention , Other Musculoskeletal: Back Pain. negative: Neck Pain, Shoulder Pain, Arm Pain, Hand Pain, Leg Pain, Foot Pain, Other Skin: negative: Rash, Lesions, Chaka, Bruising, Other - Medications/Allergies Allergies/Adverse Reactions: Allergies Allergy/AdvReac Type Severity Reaction Status Date / Time Penicillins Allergy Intermediate Swollen Verified 05/14/17 22:54 Lips Medications: Current Medications Acetaminophen (Tylenol) 650 mg PO Q4H PRN PRN Reason: Headache/Fever or Pain Last Admin: 05/15/17 21:08 Dose: 650 mg Acetaminophen/Codeine Phosphate (Tylenol #3) 1 tab PO Q4H PRN PRN Reason: Mild Pain (1-3) Acetaminophen/Codeine Phosphate (Tylenol #3) 2 tab PO Q4H PRN PRN Reason: Moderate Pain (4-6) Last Admin: 05/17/17 03:37 Dose: 2 tab Hydrocodone Bitart/Acetaminophen ([place] 5/325) 1 tab PO Q4H PRN PRN Reason: Moderate Pain (4-6) Last Admin: 05/16/17 20:18 Dose: 1 tab Al Hydroxide/Mg Hydroxide (Maalox) 15 ml PO Q4H PRN PRN Reason: Heartburn or Indigestion Allopurinol (Zyloprim) 300 mg PO DAILY [facility] Last Admin: 05/17/17 09:51 Dose: 300 mg Artificial Tears (Tears Naturale) 0 drop EA EYE PRN PRN PRN Reason: Dry Eyes Aspirin (Aspirin) 325 mg PO DAILY [facility] Last Admin: 05/17/17 09:51 Dose: 325 mg Atorvastatin Calcium (Lipitor) 80 mg PO HS [facility] Last Admin: 05/16/17 20:16 Dose: 80 mg Benzonatate (Tessalon) 100 mg PO Q4H PRN PRN Reason: Cough Carvedilol (Coreg) 12.5 mg PO BID [facility] Last Admin: 05/17/17 09:51 Dose: 12.5 mg Dextrose/Water (Dextrose 50%) 25 gm SLOW IVP PRN PRN PRN Reason: Hypoglycemia Docusate Sodium (Colace) 100 mg PO BID [facility] Last Admin: 05/17/17 09:51 Dose: 100 mg Ezetimibe (Zetia) 10 mg PO DAILY [facility] Last Admin: 05/17/17 09:50 Dose: 10 mg Furosemide (Lasix) 40 mg PO DAILY-AC [facility] Last Admin: 05/17/17 09:51 Dose: 40 mg Glucagon (Glucagon) 1 mg IM PRN PRN PRN Reason: Hypoglycemia Guaifenesin (Robitussin Sf) 200 mg PO Q4H PRN PRN Reason: Cough Hydralazine HCl (Apresoline) 10 mg SLOW IVP Q4H PRN PRN Reason: Systolic BP > 180 Dextrose/Water (D5w) 1,000 mls @ 0 mls/hr IV .Q0M PRN; As Directed PRN Reason: Hypoglycemia Sodium Chloride (Normal Saline 0.9%) 1,000 mls @ 125 mls/hr IV .Q8H [facility] Last Admin: 05/17/17 05:27 Dose: Not Given Insulin Human Lispro (Humalog) 0 units SC .MODERATE SLIDING SC PRN PRN Reason: Moderate Correctional Scale Insulin Human Lispro (Humalog) 0 units SC .BEDTIME SLIDING SC PRN PRN Reason: Bedtime Correctional Scale Iron/Minerals/Multivitamins (Theragran M) 1 tab PO DAILY [facility] Last Admin: 05/17/17 09:51 Dose: 1 tab Isosorbide Mononitrate (Imdur) 60 mg PO DAILY [facility] Last Admin: 05/16/17 08:19 Dose: 60 mg Lisinopril (Zestril) 20 mg PO BID [facility] Last Admin: 05/16/17 20:17 Dose: 20 mg Loperamide HCl (Imodium) 2 mg PO PRN PRN PRN Reason: Diarrhea/Loose Stools Loratadine (Claritin) 10 mg PO DAILYPRN PRN PRN Reason: Sinus Symptoms Magnesium Hydroxide (Milk Of Magnesium) 30 ml PO DAILYPRN PRN PRN Reason: Constipation Mineral Oil/White Petrolatum (Eucerin Cream) 0 gm TOP BIDPRN PRN PRN Reason: Dry Skin Morphine Sulfate (Morphine) 2 mg SLOW IVP Q2H PRN PRN Reason: Chest Pain Last Admin: 05/17/17 04:53 Dose: 2 mg Morphine Sulfate (Morphine) 4 mg SLOW IVP Q4H PRN PRN Reason: Pain Last Admin: 05/17/17 04:13 Dose: 4 mg Nitroglycerin (Nitrostat) 0.4 mg SL Q5MIN PRN PRN Reason: Chest Pain Ondansetron HCl (Zofran Odt) 4 mg PO Q6H PRN PRN Reason: Nausea/Vomiting Last Admin: 05/15/17 08:03 Dose: 4 mg Ondansetron HCl (Zofran) 4 mg IVP Q6H PRN PRN Reason: Nausea/Vomiting Pantoprazole Sodium (Protonix) 40 mg PO BID [facility] Last Admin: 05/17/17 09:51 Dose: 40 mg Ranolazine (Ranexa) 1,000 mg PO BID [facility] Last Admin: 05/17/17 09:50 Dose: 1,000 mg Sodium Chloride ([place] Nasal [place] 0.65%) 0 ml EA NARE QIDPRN PRN PRN Reason: Nasal Congestion Sodium Chloride (Flush - Normal Saline) 10 ml IVF Q12HR [facility] Last Admin: 05/17/17 09:52 Dose: 10 ml Sodium Chloride (Flush - Normal Saline) 10 ml IVF PRN PRN PRN Reason: Saline Flush Temazepam (Restoril) 30 mg PO HS [facility] Last Admin: 05/16/17 20:17 Dose: 30 mg Tramadol HCl (Ultram) 50 mg PO Q6H PRN PRN Reason: Moderate Pain (4-6) Last Admin: 05/15/17 21:08 Dose: 50 mg
--- NOTE | 2017-05-17 11:30 | CON ---
DATE OF CONSULTATION: 05/17/2017 CONSULTING PHYSICIAN: [facility]. REASON FOR CONSULTATION: [facility] stay. HISTORY OF PRESENT ILLNESS: The patient is a 72-year-old male who is able to provide his own history. Additionally, his is able to add much to the history. There are also significant medical records in the charts that I have reviewed. He was hospitalized here on 05/15/2017. At that time, he was complaining of epigastric pain radiating to his back. He still had some difficulty with that. He has had a CT scan to rule out dissection that noted nonspecific adrenal mass, also had some mild gallbladder distention, but no stones. Last night, he received some morphine for the pain and developed hypotension afterwards and had to be moved to the intermediate care unit. This morning, he feels better, although he says he is still hung over from the effects of the morphine. PAST MEDICAL HISTORY: 1. Chronic systolic heart failure with EF 35-40%. 2. Mitral regurgitation. 3. Coronary artery disease. 4. Hypertension. 5. Diabetes mellitus type 2. 6. Hyperlipidemia. PAST SURGICAL HISTORY: Coronary artery bypass grafting x4, coronary stent placement and hernia repair. ALLERGIES: PENICILLIN. FAMILY MEDICAL HISTORY: Remarkable for COPD. SOCIAL HISTORY: Nonsmoker, does not consume alcohol, has 2 sons, also . MEDICATIONS PRIOR TO ADMISSION: Aspirin, atorvastatin, carvedilol, Lasix, isosorbide, lisinopril, metformin, temazepam, allopurinol, Ranexa and Zetia. REVIEW OF SYSTEMS: Twelve-point review of systems is otherwise negative except for back pain. PHYSICAL EXAMINATION: VITAL SIGNS: Temperature 96.2, pulse 67, blood pressure 117/59, O2 sat 100% on 3 liters. GENERAL: He is awake and alert, in no distress. HEENT: Pupils are reactive. Sclerae anicteric. Oropharynx clear. NECK: Without adenopathy or JVD. LUNGS: A few crackles in the bases. CARDIAC: S1, S2 regular. ABDOMEN: Soft, nontender, no palpable pain. EXTREMITIES: No clubbing, cyanosis, or edema. LABORATORY DATA: White blood cell count 6.8, hematocrit 39.8, platelet count 226; pH 7.46, pCO2 is 31, pO2 is 191. Sodium 136, potassium 4.0, chloride 102, CO2 is 23, BUN 17, creatinine 0.9, glucose 147. IMAGING: I reviewed his chest x-ray which shows some component of failure. Review of CT scan of the chest which showed no evidence of pulmonary embolism. ASSESSMENT: 1. Hypotension secondary to the effects of morphine - symptoms have improved now and the morphine began to wear off. 2. Nonspecific abdominal pain. 3. History of congestive heart failure. RECOMMENDATIONS: Can probably move him back to telemetry at any time. I would withhold any significant stronger pain medication and pursue further workup of his back pain. 70 min. of time was pent performing this consultation. Of the 70 min., greater than 50% of time was spent on counseling and coordination of care MTDD
[2017-05-17] MEDS: Lisinopril 20 MG TAB PO SCH ×2 (12:11→20:34)
[2017-05-17] MEDS: Temazepam 15 MG CAP PO SCH (20:33)
[2017-05-17] MEDS: Atorvastatin Calcium 40 MG TAB PO SCH (20:33)
[2017-05-17] MEDS: HYDROcodone/Acetaminophen 5/325 mg Tablet PO PRN (23:17)
--- NOTE | 2017-05-18 06:39 | PRG ---
DATE OF SERVICE: 05/18/2017 He appears comfortable, in no distress. PHYSICAL EXAMINATION: VITAL SIGNS: His T-max is 100.3, T-current 98.7, pulse 87, blood pressure 114/48, O2 sat 96% on 3 li ters. HEENT: Unremarkable. NECK: No JVD. CHEST: Clear without wheezing. CARDIAC: S1 and S2 regular. ABDOMEN: Soft. EXTREMITIES: No edema. ASSESSMENT: 1. Transient hypotension which seems secondary to the effects of morphine. 2. Nonspecific abdominal pain. 3. History of congestive heart failure. PLAN: He can be transferred back to the telemetry floor. There does not appear to be any acute pulm onary problem at this time. Recall if further help needed.
[2017-05-18 06:44] LABS: Hemoglobin 12.9 g/dL (14.0-18.0); Platelet Count 253 thou/uL (130-400)
[2017-05-18] MEDS: Lisinopril 20 MG TAB PO SCH ×2 (09:22→21:21)
[2017-05-18] MEDS: Ezetimibe 10 MG TAB PO SCH (09:22)
[2017-05-18] MEDS: Aspirin 325 MG TAB PO SCH (09:22)
[2017-05-18] MEDS: Carvedilol 6.25 MG TAB PO SCH ×2 (09:23→21:23)
[2017-05-18] MEDS: Multivitamin W/ Minerals 1 TAB PO SCH (09:24)
[2017-05-18] MEDS: Docusate 100 MG CAP PO SCH ×2 (09:24→21:21)
[2017-05-18] MEDS: Furosemide 40 MG TAB PO SCH (09:24)
[2017-05-18] MEDS: Acetaminophen/Codeine 30-300mg Tablet PO PRN (09:24)
[2017-05-18] MEDS: Allopurinol 300 MG TAB PO SCH (09:25)
[2017-05-18 10:02] LABS: ALT (SGPT) 20 U/L (8-55); AST (SGOT) 22 U/L (5-34); Albumin 3.3 g/dL (3.4-4.8); Alkaline Phosphatase 78 U/L (40-150); Anion Gap 18 mmol/L (10-20); BUN (Urea Nitrogen) 30 mg/dL (8.4-25.7); Bilirubin, Total 2.4 mg/dL (0.2-1.2); Calc. Creatinine Clearance 69 mL/min (70-130); Calcium 9.3 mg/dL (7.8-10.44); Carbon Dioxide 22 mmol/L (23-31); Chloride 103 mmol/L (98-107); Estimated GFR-MDRD 55; Globulin 3.9 g/dL (2.4-3.5); Glucose 149 mg/dL (83-110); Potassium 3.8 mmol/L (3.5-5.1); Protein, Total 7.2 g/dL (5.8-8.1); Sodium 139 mmol/L (136-145)
[2017-05-18 10:02] LABS: Bilirubin Moderate (Negative); Blood, Urine Moderate (Negative); Clarity TURBID (Clear); Glucose, Urine (Dipstick) Negative (Negative); Leukocyte Small (Negative); Protein, Urine (Dipstick) 100 mg/dL (Neg-Trace); Specific Gravity, Urine 1.041 (1.002-1.036)
[2017-05-18 10:04] LABS: Bacteria/HPF None Seen HPF (None Seen)
[2017-05-18 10:15] LABS: Nitrite Unable to Interpret (Negative); Pathc Cast-AUWi Flag 5.69 (0-2.49); Yeast-AUWi Flag 635.5 (0-25.0)
[2017-05-18 10:16] LABS: #Eosinphils 0.1 thou/uL (0.0-0.7); #Lymphocytes 0.5 thou/uL (1.20-3.40); #Monocytes 0.3 thou/uL (0.11-0.59); #Neutrophils 9.1 thou/uL (1.40-6.50); %Basophils 0.1 % (0.0-1.0); %Eosinophils 0.6 % (0.0-10.0); %Lymphocytes 4.7 % (21.0-51.0); %Monocytes 3.2 % (0.0-10.0); %Neutrophils 91.5 % (42.0-75.0); Hemoglobin 12.2 g/dL (14.0-18.0); Mean Corpuscular HGB CONC 30.6 g/dL (32.0-36.0); Mean Corpuscular Hemoglobin 26.7 pg (27.0-31.0); Mean Corpuscular Volume 87.1 fl (80.0-94.0); Mean Platelet Volume 7.2 fL (7.4-10.4); Platelet Count 248 thou/uL (130-400); Red Blood Cell (RBC) Count 4.56 mill/uL (4.70-6.10)
--- NOTE | 2017-05-18 10:38 | PDOC.PN ---
- Subjective Encounter Start Date: 05/18/17 Encounter Start Time: 08:50 pt has lower abdomen pain and back pain, gets fever, weak - Objective Resuscitation Status: Resuscitation Status FULL:Full Resuscitation MAR Reviewed: Yes Vital Signs & Weight: Vital Signs (12 hours) Temp Pulse Resp BP BP Pulse Ox 05/18/17 09:23 117/59 L 05/18/17 09:22 117/59 L 05/18/17 07:35 98.7 F 89 24 H 142/78 H 100 05/18/17 04:20 98.7 F 87 19 114/48 L 96 05/18/17 00:21 100.3 F H 86 22 H 119/48 L 97 Weight Weight 209 lb 4.8 oz I&O: 05/17/17 05/18/17 05/19/17 06:59 06:59 06:59 Intake Total 1810 745 Output Total 1505 660 Balance 305 85 Result Diagrams: 05/18/17 09:39 05/18/17 09:39 Additional Labs: Accuchecks 05/18/17 05/17/17 05/17/17 05:49 20:13 16:55 POC Glucose 157 H 156 H 175 H 05/17/17 12:39 POC Glucose 132 H Radiology Reviewed by me: Yes (CT stone) Phys Exam - Physical Examination Constitutional: NAD HEENT: PERRLA, moist MMs, sclera anicteric Neck: no JVD, supple Respiratory: no wheezing, no rales, no rhonchi Cardiovascular: RRR, no significant murmur, no rub Gastrointestinal: soft, no distention, positive bowel sounds lower abdomen tenderness ocasio with concentrated urine Musculoskeletal: no edema, pulses present Neurological: non-focal, normal sensation Psychiatric: normal affect, A&O x 3 Skin: no rash, normal turgor Dx/Plan (1) NSTEMI (non-ST elevated myocardial infarction) Code(s): I21.4 - NON-ST ELEVATION (NSTEMI) MYOCARDIAL INFARCTION Status: Acute (2) Chronic systolic heart failure Code(s): I50.22 - CHRONIC SYSTOLIC (CONGESTIVE) HEART FAILURE Status: Chronic (3) Diabetes type 2, controlled Code(s): E11.9 - TYPE 2 DIABETES MELLITUS WITHOUT COMPLICATIONS Status: Chronic (4) Dyslipidemia Code(s): E78.5 - HYPERLIPIDEMIA, UNSPECIFIED Status: Chronic (5) Gout Code(s): M10.9 - GOUT, UNSPECIFIED Status: Chronic (6) Hypotension Status: Deleted - Plan cont current plan of care, continue antibiotics, PT/OT * will get CT sone protocol * start levaquin * send UA and urine culture * transfer to tele * SNU evaluation * medication reviewed as below * symptomatic treatment. Review of Systems - Review of Systems ENT: negative: Ear Pain, Ear Discharge, Nose Pain, Nose Discharge, Nose Congestion, Mouth Pain, Mouth Swelling, Throat Pain, Throat Swelling, Other Respiratory: negative: Cough, Dry, Shortness of Breath, Hemoptysis, SOB with Excertion, Pleuritic Pain, Sputum, Wheezing Cardiovascular: negative: chest pain, palpitations, orthopnea, paroxysmal nocturnal dyspnea, edema, light headedness, other Gastrointestinal: Abdominal Pain. negative: Nausea, Vomiting, Diarrhea, Constipation, Melena, Hematochezia, Other Genitourinary: negative: Dysuria, Frequency, Incontinence, Hematuria, Retention , Other Musculoskeletal: negative: Neck Pain, Shoulder Pain, Arm Pain, Back Pain, Hand Pain, Leg Pain, Foot Pain, Other Skin: negative: Rash, Lesions, Chaka, Bruising, Other - Medications/Allergies Allergies/Adverse Reactions: Allergies Allergy/AdvReac Type Severity Reaction Status Date / Time Penicillins Allergy Intermediate Swollen Verified 05/14/17 22:54 Lips Medications: Current Medications Acetaminophen (Tylenol) 650 mg PO Q4H PRN PRN Reason: Headache/Fever or Pain Last Admin: 05/15/17 21:08 Dose: 650 mg Acetaminophen/Codeine Phosphate (Tylenol #3) 1 tab PO Q4H PRN PRN Reason: Mild Pain (1-3) Acetaminophen/Codeine Phosphate (Tylenol #3) 2 tab PO Q4H PRN PRN Reason: Moderate Pain (4-6) Last Admin: 05/18/17 09:24 Dose: 2 tab Hydrocodone Bitart/Acetaminophen ([place] 5/325) 1 tab PO Q4H PRN PRN Reason: Moderate Pain (4-6) Last Admin: 05/17/17 23:17 Dose: 1 tab Al Hydroxide/Mg Hydroxide (Maalox) 15 ml PO Q4H PRN PRN Reason: Heartburn or Indigestion Allopurinol (Zyloprim) 300 mg PO DAILY [facility] Last Admin: 05/18/17 09:25 Dose: 300 mg Artificial Tears (Tears Naturale) 0 drop EA EYE PRN PRN PRN Reason: Dry Eyes Aspirin (Aspirin) 325 mg PO DAILY [facility] Last Admin: 05/18/17 09:22 Dose: 325 mg Atorvastatin Calcium (Lipitor) 80 mg PO HS [facility] Last Admin: 05/17/17 20:33 Dose: 80 mg Benzonatate (Tessalon) 100 mg PO Q4H PRN PRN Reason: Cough Carvedilol (Coreg) 12.5 mg PO BID [facility] Last Admin: 05/18/17 09:23 Dose: 12.5 mg Dextrose/Water (Dextrose 50%) 25 gm SLOW IVP PRN PRN PRN Reason: Hypoglycemia Docusate Sodium (Colace) 100 mg PO BID [facility] Last Admin: 05/18/17 09:24 Dose: 100 mg Ezetimibe (Zetia) 10 mg PO DAILY [facility] Last Admin: 05/18/17 09:22 Dose: 10 mg Furosemide (Lasix) 40 mg PO DAILY-AC [facility] Last Admin: 05/18/17 09:24 Dose: 40 mg Glucagon (Glucagon) 1 mg IM PRN PRN PRN Reason: Hypoglycemia Guaifenesin (Robitussin Sf) 200 mg PO Q4H PRN PRN Reason: Cough Hydralazine HCl (Apresoline) 10 mg SLOW IVP Q4H PRN PRN Reason: Systolic BP > 180 Dextrose/Water (D5w) 1,000 mls @ 0 mls/hr IV .Q0M PRN; As Directed PRN Reason: Hypoglycemia Levofloxacin 500 mg/ Device 100 mls @ 100 mls/hr IVPB Q24HR [facility] Last Admin: 05/18/17 10:24 Dose: 100 mls Insulin Human Lispro (Humalog) 0 units SC .MODERATE SLIDING SC PRN PRN Reason: Moderate Correctional Scale Insulin Human Lispro (Humalog) 0 units SC .BEDTIME SLIDING SC PRN PRN Reason: Bedtime Correctional Scale Iron/Minerals/Multivitamins (Theragran M) 1 tab PO DAILY [facility] Last Admin: 05/18/17 09:24 Dose: 1 tab Isosorbide Mononitrate (Imdur) 60 mg PO DAILY [facility] Last Admin: 05/18/17 09:23 Dose: 60 mg Lisinopril (Zestril) 20 mg PO BID [facility] Last Admin: 05/18/17 09:22 Dose: 20 mg Loperamide HCl (Imodium) 2 mg PO PRN PRN PRN Reason: Diarrhea/Loose Stools Loratadine (Claritin) 10 mg PO DAILYPRN PRN PRN Reason: Sinus Symptoms Magnesium Hydroxide (Milk Of Magnesium) 30 ml PO DAILYPRN PRN PRN Reason: Constipation Mineral Oil/White Petrolatum (Eucerin Cream) 0 gm TOP BIDPRN PRN PRN Reason: Dry Skin Morphine Sulfate (Morphine) 2 mg SLOW IVP Q2H PRN PRN Reason: Chest Pain Last Admin: 05/18/17 02:31 Dose: 2 mg Morphine Sulfate (Morphine) 4 mg SLOW IVP Q4H PRN PRN Reason: Pain Nitroglycerin (Nitrostat) 0.4 mg SL Q5MIN PRN PRN Reason: Chest Pain Ondansetron HCl (Zofran Odt) 4 mg PO Q6H PRN PRN Reason: Nausea/Vomiting Last Admin: 05/15/17 08:03 Dose: 4 mg Ondansetron HCl (Zofran) 4 mg IVP Q6H PRN PRN Reason: Nausea/Vomiting Pantoprazole Sodium (Protonix) 40 mg PO BID [facility] Last Admin: 05/18/17 09:23 Dose: 40 mg Ranolazine (Ranexa) 1,000 mg PO BID [facility] Last Admin: 05/18/17 09:22 Dose: 1,000 mg Sodium Chloride ([place] Nasal [place] 0.65%) 0 ml EA NARE QIDPRN PRN PRN Reason: Nasal Congestion Sodium Chloride (Flush - Normal Saline) 10 ml IVF Q12HR [facility] Last Admin: 05/18/17 09:25 Dose: 10 ml Sodium Chloride (Flush - Normal Saline) 10 ml IVF PRN PRN PRN Reason: Saline Flush Temazepam (Restoril) 30 mg PO HS [facility] Last Admin: 05/17/17 20:33 Dose: 30 mg Tramadol HCl (Ultram) 50 mg PO Q6H PRN PRN Reason: Moderate Pain (4-6) Last Admin: 05/15/17 21:08 Dose: 50 mg
[2017-05-18 10:47] LABS: Crystals/HPF 1+ AMORPH URATES HPF (Negative); Hyaline Casts/LPF 0-3 HYALINE CAST LPF (0-3 Hyaline); Other Casts/LPF 0-3 COARSE GRAN LPF (0-3 Hyaline); Yeast-All Forms None Seen HPF (None Seen)
[2017-05-18] MEDS ORDERED: Sodium Chloride 0.9% 500 ML IV SCH (12:45)
--- NOTE | 2017-05-18 12:48 | CT ---
CT ABDOMEN AND PELVIS WITHOUT CONTRAST: HISTORY: Lower abdominal pain. Back pain. COMPARISON: Recent CT abdomen and pelvis, dated 05/14/2017. TECHNIQUE: Multiple axial tomograms obtained through the abdomen and pelvis without IV enhancement. FINDINGS: Images through the lung bases show posterior atelectasis and/or infiltrates. The liver, spleen, and pancreas are unremarkable. The gallbladder is distended, which was noted previously. There is no evidence of pericholecystic in flammation, which appears new since the prior study. Recent abdominal ultrasound did not identify ga llstones. Small bowel loops are of normal caliber. Prominent stool in the right colon. The left colon is deco mpressed. Diverticulosis of the sigmoid colon without evidence of diverticulitis. A small amount of free fluid in the deep pelvis on the left is noted. The left adrenal mass is again noted. CT densities on this noncontrast study are measured at 32 Houn sfield units. This is, therefore, not a benign adenoma. Dedicated adrenal mass protocol is recommen ded to assess wash-out. The kidneys show no evidence of hydronephrosis or urinary calculus. There is a lucent area seen in the L4 vertebra, which extends to the superior endplate and shows scle rotic borders, probably representing a small node. IMPRESSION: 1. A distended gallbladder is again noted. There is now evidence of pericholecystic inflammation, w hich appears new when compared to the recent CT. Acalculous cholecystitis should be considered. 2. A left adrenal mass is again noted. This is not a benign adenoma by CT density. Dedicated adren al mass protocol is recommended to assess wash-out values. 3. A tiny amount of free fluid in the deep pelvis on the left. 4. Diverticulosis without CT evidence of diverticulitis. POS: [facility]
[2017-05-18] MEDS: Atorvastatin Calcium 40 MG TAB PO SCH (21:22)
[2017-05-18] MEDS: HYDROcodone/Acetaminophen 5/325 mg Tablet PO PRN (21:22)
[2017-05-18] MEDS: Temazepam 15 MG CAP PO SCH (21:22)
--- NOTE | 2017-05-19 09:52 | PDOC.PN ---
- Subjective Encounter Start Date: 05/19/17 Encounter Start Time: 09:00 Patient seen and examined. No new complaints. No overnight events pt has concentrated urine, his BP is still remains low - Objective Resuscitation Status: Resuscitation Status FULL:Full Resuscitation MAR Reviewed: Yes Vital Signs & Weight: Vital Signs (12 hours) Temp Pulse Resp BP Pulse Ox 05/19/17 08:00 97.9 F 94 18 92/54 L 94 L 05/19/17 04:00 98.2 F 95 20 119/64 94 L 05/19/17 00:00 99.0 F 71 18 114/88 99 Weight Weight 210 lb 1.6 oz I&O: 05/18/17 05/19/17 05/20/17 06:59 06:59 06:59 Intake Total 745 950 Output Total 660 475 Balance 85 475 Result Diagrams: 05/18/17 09:39 05/18/17 09:39 Additional Labs: Accuchecks 05/19/17 05/18/17 05/18/17 05:35 21:22 16:16 POC Glucose 127 H 176 H 137 H 05/18/17 11:28 POC Glucose 184 H Radiology Reviewed by me: Yes EKG Reviewed by me: Yes Phys Exam - Physical Examination Constitutional: NAD HEENT: PERRLA, moist MMs, sclera anicteric Neck: no JVD, supple Respiratory: no wheezing, no rales, no rhonchi Cardiovascular: RRR, no significant murmur, no rub Gastrointestinal: soft, no distention, positive bowel sounds RUQ tenderness Musculoskeletal: no edema, pulses present Neurological: non-focal, normal sensation, moves all 4 limbs Psychiatric: normal affect Skin: no rash, normal turgor Dx/Plan (1) NSTEMI (non-ST elevated myocardial infarction) Code(s): I21.4 - NON-ST ELEVATION (NSTEMI) MYOCARDIAL INFARCTION Status: Acute (2) Chronic systolic heart failure Code(s): I50.22 - CHRONIC SYSTOLIC (CONGESTIVE) HEART FAILURE Status: Chronic (3) Diabetes type 2, controlled Code(s): E11.9 - TYPE 2 DIABETES MELLITUS WITHOUT COMPLICATIONS Status: Chronic (4) Dyslipidemia Code(s): E78.5 - HYPERLIPIDEMIA, UNSPECIFIED Status: Chronic (5) Gout Code(s): M10.9 - GOUT, UNSPECIFIED Status: Chronic (6) Hypotension Status: Resolved - Plan cont current plan of care, continue antibiotics, PT/OT, adoption social worker * will consult surgeon for acalcuous cholecystitis * today HIDA scan * EP consulted for AICD * will DC coreg, lisnopril, lasix, imdur for now due to his low BP * medication reviewed as below * symptomatic treatment. * continue levaquin Review of Systems - Review of Systems Constitutional: negative: fever, chills, sweats, weakness, malaise, other ENT: negative: Ear Pain, Ear Discharge, Nose Pain, Nose Discharge, Nose Congestion, Mouth Pain, Mouth Swelling, Throat Pain, Throat Swelling, Other Respiratory: negative: Cough, Dry, Shortness of Breath, Hemoptysis, SOB with Excertion, Pleuritic Pain, Sputum, Wheezing Cardiovascular: negative: chest pain, palpitations, orthopnea, paroxysmal nocturnal dyspnea, edema, light headedness, other Gastrointestinal: Abdominal Pain. negative: Nausea, Vomiting, Diarrhea, Constipation, Melena, Hematochezia, Other Genitourinary: negative: Dysuria, Frequency, Incontinence, Hematuria, Retention , Other Musculoskeletal: negative: Neck Pain, Shoulder Pain, Arm Pain, Back Pain, Hand Pain, Leg Pain, Foot Pain, Other Skin: negative: Rash, Lesions, Chaka, Bruising, Other - Medications/Allergies Allergies/Adverse Reactions: Allergies Allergy/AdvReac Type Severity Reaction Status Date / Time Penicillins Allergy Intermediate Swollen Verified 05/14/17 22:54 Lips Medications: Current Medications Acetaminophen (Tylenol) 650 mg PO Q4H PRN PRN Reason: Headache/Fever or Pain Last Admin: 05/15/17 21:08 Dose: 650 mg Acetaminophen/Codeine Phosphate (Tylenol #3) 1 tab PO Q4H PRN PRN Reason: Mild Pain (1-3) Acetaminophen/Codeine Phosphate (Tylenol #3) 2 tab PO Q4H PRN PRN Reason: Moderate Pain (4-6) Last Admin: 05/18/17 09:24 Dose: 2 tab Hydrocodone Bitart/Acetaminophen (Cable 5/325) 1 tab PO Q4H PRN PRN Reason: Moderate Pain (4-6) Last Admin: 05/18/17 21:22 Dose: 1 tab Al Hydroxide/Mg Hydroxide (Maalox) 15 ml PO Q4H PRN PRN Reason: Heartburn or Indigestion Allopurinol (Zyloprim) 300 mg PO DAILY [facility] Last Admin: 05/18/17 09:25 Dose: 300 mg Artificial Tears (Tears Naturale) 0 drop EA EYE PRN PRN PRN Reason: Dry Eyes Aspirin (Aspirin) 325 mg PO DAILY [facility] Last Admin: 05/18/17 09:22 Dose: 325 mg Atorvastatin Calcium (Lipitor) 80 mg PO HS [facility] Last Admin: 05/18/17 21:22 Dose: 80 mg Benzonatate (Tessalon) 100 mg PO Q4H PRN PRN Reason: Cough Dextrose/Water (Dextrose 50%) 25 gm SLOW IVP PRN PRN PRN Reason: Hypoglycemia Docusate Sodium (Colace) 100 mg PO BID [facility] Last Admin: 05/18/17 21:21 Dose: 100 mg Ezetimibe (Zetia) 10 mg PO DAILY [facility] Last Admin: 05/18/17 09:22 Dose: 10 mg Glucagon (Glucagon) 1 mg IM PRN PRN PRN Reason: Hypoglycemia Guaifenesin (Robitussin Sf) 200 mg PO Q4H PRN PRN Reason: Cough Hydralazine HCl (Apresoline) 10 mg SLOW IVP Q4H PRN PRN Reason: Systolic BP > 180 Dextrose/Water (D5w) 1,000 mls @ 0 mls/hr IV .Q0M PRN; As Directed PRN Reason: Hypoglycemia Levofloxacin 500 mg/ Device 100 mls @ 100 mls/hr IVPB Q24HR [facility] Last Admin: 05/18/17 10:24 Dose: 100 mls Insulin Human Lispro (Humalog) 0 units SC .MODERATE SLIDING SC PRN PRN Reason: Moderate Correctional Scale Insulin Human Lispro (Humalog) 0 units SC .BEDTIME SLIDING SC PRN PRN Reason: Bedtime Correctional Scale Iron/Minerals/Multivitamins (Theragran M) 1 tab PO DAILY [facility] Last Admin: 05/18/17 09:24 Dose: 1 tab Loperamide HCl (Imodium) 2 mg PO PRN PRN PRN Reason: Diarrhea/Loose Stools Loratadine (Claritin) 10 mg PO DAILYPRN PRN PRN Reason: Sinus Symptoms Magnesium Hydroxide (Milk Of Magnesium) 30 ml PO DAILYPRN PRN PRN Reason: Constipation Mineral Oil/White Petrolatum (Eucerin Cream) 0 gm TOP BIDPRN PRN PRN Reason: Dry Skin Morphine Sulfate (Morphine) 2 mg SLOW IVP Q2H PRN PRN Reason: Chest Pain Last Admin: 05/18/17 02:31 Dose: 2 mg Morphine Sulfate (Morphine) 4 mg SLOW IVP Q4H PRN PRN Reason: Pain Nitroglycerin (Nitrostat) 0.4 mg SL Q5MIN PRN PRN Reason: Chest Pain Ondansetron HCl (Zofran Odt) 4 mg PO Q6H PRN PRN Reason: Nausea/Vomiting Last Admin: 05/15/17 08:03 Dose: 4 mg Ondansetron HCl (Zofran) 4 mg IVP Q6H PRN PRN Reason: Nausea/Vomiting Pantoprazole Sodium (Protonix) 40 mg PO BID [facility] Last Admin: 05/18/17 21:23 Dose: 40 mg Ranolazine (Ranexa) 1,000 mg PO BID [facility] Last Admin: 05/18/17 21:25 Dose: 1,000 mg Sodium Chloride ([place] Nasal [place] 0.65%) 0 ml EA NARE QIDPRN PRN PRN Reason: Nasal Congestion Sodium Chloride (Flush - Normal Saline) 10 ml IVF Q12HR [facility] Last Admin: 05/18/17 21:27 Dose: 10 ml Sodium Chloride (Flush - Normal Saline) 10 ml IVF PRN PRN PRN Reason: Saline Flush Temazepam (Restoril) 30 mg PO HS [facility] Last Admin: 05/18/17 21:22 Dose: 30 mg Tramadol HCl (Ultram) 50 mg PO Q6H PRN PRN Reason: Moderate Pain (4-6) Last Admin: 05/15/17 21:08 Dose: 50 mg
[2017-05-19] MEDS ORDERED: Sodium Chloride 0.9% 0 ML ONE (10:49)
[2017-05-19 12:03] LABS: Hemoglobin 10.4 g/dL (14.0-18.0); Mean Corpuscular HGB CONC 32.5 g/dL (32.0-36.0); Mean Corpuscular Hemoglobin 28.5 pg (27.0-31.0); Mean Corpuscular Volume 87.5 fl (80.0-94.0); Platelet Count 247 thou/uL (130-400); RBC Distribution Width 14.2 % (11.5-14.5); Red Blood Cell (RBC) Count 3.65 mill/uL (4.70-6.10); White Blood Cell (WBC) Count 11.4 thou/uL (4.8-10.8)
[2017-05-19 12:56] LABS: ALT (SGPT) 20 U/L (8-55); AST (SGOT) 39 U/L (5-34); Albumin 2.9 g/dL (3.4-4.8); Alkaline Phosphatase 101 U/L (40-150); Anion Gap 16 mmol/L (10-20); BUN (Urea Nitrogen) 53 mg/dL (8.4-25.7); Bilirubin, Total 2.2 mg/dL (0.2-1.2); Calc. Creatinine Clearance 37 mL/min (70-130); Calcium 8.7 mg/dL (7.8-10.44); Carbon Dioxide 23 mmol/L (23-31); Chloride 103 mmol/L (98-107); Estimated GFR-MDRD 27; Globulin 3.5 g/dL (2.4-3.5); Glucose 188 mg/dL (83-110); Potassium 3.7 mmol/L (3.5-5.1); Protein, Total 6.4 g/dL (5.8-8.1); Sodium 138 mmol/L (136-145)
[2017-05-19 14:30] LABS: Band 24 % (5-11); Dohle Bodies SLIGHT; Lymphocytes 4 % (21-51); MDiff Complete? YES; Metamyelocyte 1 % (0-0); Monocytes 2 % (0-10); Neutrophil 69 % (42-75); PLT Morphology Comment Appears Adequate; Polychromasia SLIGHT = 2-3 cells (100X) (0-2/hpf); Vacuoles SLIGHT
--- NOTE | 2017-05-19 14:53 | CON ---
DATE OF CONSULTATION: 05/19/2017 REQUESTING PHYSICIAN: Dr. Negron. HISTORY OF PRESENT ILLNESS: A 72-year-old man with a history of severe coronary arterial disease. Patient presented with recurrent epigastric abdominal pain 3 days previously. The pain was associated with some nausea, but no emesis. Patient denied any fevers or chills. Denied any diarrhea. He recalls similar pain in the past, not associated with meals or activity. Patient was evaluated for acute coronary syndrome. Although , his troponin was elevated. Cardiology evaluation does not suggest cardiac etiology of the abdominal pain. Patient underwent an abdominal ultrasound, which revealed a dilated gallbladder devoid of stones. Subsequent, CT scan of the abdomen and pelvis was also obtained, this again demonstrates a dilated gallbladder with no evidence of acute inflammation. I was asked to evaluate the patient for possible acalculous cholecystitis. At the time of my evaluation, patient is awake and alert. He reports some fatigue and general malaise. His pain is mostly right-sided do not significantly worse in the epigastrium. He denies any current nausea. Denies any chills. PAST MEDICAL HISTORY: Significant for severe coronary arterial disease, chronic congestive heart failure, essential hypertension, type 2 diabetes mellitus, and hyperlipidemia. PAST SURGICAL HISTORY: Significant for 4-vessel coronary arterial bypass graft , coronary angiography with stenting, he also has had a previous hernia repair. SOCIAL HISTORY: Patient is retired and lives at home with his . He denies any cigarette smoking, ethanol, or illicit drug abuse. I have reviewed all his prehospitalization medications. ALLERGIES: PENICILLIN. FAMILY HISTORY: Noncontributory for this patient's age. REVIEW OF SYSTEMS: A 10-point review of systems essentially unremarkable except for as stated in past medical history and chief complaint. PHYSICAL EXAMINATION: GENERAL: This reveals a 72-year-old normally developed man who is otherwise coherent and interactive and appears stated age. Patient is alert and oriented x3. He appears to be in no significant acute distress at the time of my evaluation. VITAL SIGNS: However, reveals blood pressure 92/54, pulse is 94, respiratory rate is 18, maximum temperature in the last 24 hours is 99.6 degrees Fahrenheit , oxygen saturation is 94% on room air. Urinary output has been quite low over the last few hours now. HEENT: Reveals normocephalic and atraumatic. Pupils are equal, round, reactive to light and accommodation. Extraocular muscles are intact bilaterally. No sclerae icterus is present. Oral mucosa is pink and moist. No lesions are noted. Patient has no jugular venous distention noted. HEART: Reveals regular rate and rhythm, no murmurs or gallops auscultated. LUNGS: Clear to auscultation bilaterally. Breathing regular and unlabored. ABDOMEN: Soft and nondistended. He has right upper quadrant tenderness to palpation with no gross rebound tenderness present. Liver and spleen are otherwise nonpalpable below costal margins. NEUROLOGIC: Reveals no focal deficits present. PERTINENT LABORATORY FINDINGS: Today includes metabolic profile: Sodium 138, potassium is 3.7, chloride is 103, bicarbonate 23, BUN 53, creatinine is elevated at 2.38. This is in contrast to creatinine of 1.28 yesterday. Glucose is 188, total bilirubin is 2.2, AST and ALT 39 and 20 respectively. CBC with 11,400 white blood cells, hemoglobin and hematocrit 10.4 and 32.0 respectively. Platelet count is 247,000. I have personally reviewed the abdominal ultrasound, which was obtained on 05/15/2017, this reveals a dilated gallbladder with no stones, pericholecystic fluid or gallbladder wall thickening. The common bile duct is normal in diameter. I have also reviewed the CT scan of the abdomen and pelvis, which was obtained yesterday. Again a dilated gallbladder is demonstrated with no evidence of pericholecystic inflammation or stones. Incidental notation of diverticulosis coli is made. No active inflammation to suggest diverticulitis. IMPRESSION: 1. Vague abdominal pain with a distended gallbladder, rule out acalculous cholecystitis 2. History of severe coronary arterial disease. 3. History of type 2 diabetes mellitus. PLAN: We will obtain HIDA scan to better, exclude any evidence of acute cholecystitis. If abnormal, this patient's significant comorbidities and current status would warrant a percutaneous cholecystostomy tube placement.I am concerned this patient is unlikely to tolerate a laparoscopic cholecystectomy under general anesthesia. Above findings and plan discussed with the patient who indicates understanding of information given. I answered his questions. Thank you again, Dr. Negron for allowing me the opportunity to participate in the care of this patient. MANISH
[2017-05-19] MEDS: Docusate 100 MG CAP PO SCH ×2 (15:06→21:47)
[2017-05-19] MEDS: Ezetimibe 10 MG TAB PO SCH (15:06)
[2017-05-19] MEDS: Aspirin 325 MG TAB PO SCH (15:06)
[2017-05-19] MEDS: Allopurinol 300 MG TAB PO SCH (15:06)
[2017-05-19] MEDS: Multivitamin W/ Minerals 1 TAB PO SCH (15:07)
[2017-05-19] MEDS: Furosemide 40 MG TAB PO SCH ×2 (15:46→16:08)
[2017-05-19] MEDS: Carvedilol 6.25 MG TAB PO SCH (15:46)
[2017-05-19] MEDS: Lisinopril 20 MG TAB PO SCH (15:51)
--- NOTE | 2017-05-19 16:05 | NM ---
NUCLEAR MEDICINE HIDA SCAN WITHOUT EJECTION FRACTION 05/19/17 HISTORY: Cholecystitis. COMPARISON: None. FINDINGS: Patient was pretreated with 1.9 mcg CCK 39 minutes prior to the start of the examination. Subsequentl y, patient was given 4.9 millicuries technetium 99m Mebrofenin intravenously. Throughout the length o f an hour, there was adequate uptake of radiotracer within the liver. There was small bowel visualiza tion within one hour. After a four hour delay after the patient was able to be given morphine due to her blood pressure, ag ain, no gallbladder was seen. IMPRESSION: Nonvisualization of the gallbladder shows cystic duct obstruction which may be sequela of chronic or acute cholecystitis. POS: IRWIN
[2017-05-19] MEDS ORDERED: Sodium Chloride 0.9% 1,000 ML IV SCH (16:30)
[2017-05-19 16:38] LABS: INR-International Normal Ratio 1.2; Prothrombin Time 15.6 SEC (12.0-14.7)
[2017-05-19 16:39] LABS: PTT 44.7 SEC (22.9-36.1)
--- NOTE | 2017-05-19 19:05 | CT ---
CT PERITONEAL ABSCESS DRAINAGE 05/19/17 HISTORY: Cholecystitis. COMPARISON: HIDA scan same day. FINDINGS: Patient brought to the CT Suite. All questions were answered. The patient's right abdomen was prepped and draped in a normal sterile fashion. Informed consent was obtained. Timeout was performed. Using a 5 [place] Yueh needle, the gallbladder was accessed. The troc ar was replaced and a wire was placed through the tubing. Over the wire, an 8 [place] Uresil drainage catheter was placed. The patient tolerated the procedure well without complication. 95 mL of fluid wa s aspirated. IMPRESSION: Technically successful percutaneous cholecystostomy placement under CT guidance. POS: KEIRA
--- NOTE | 2017-05-19 20:05 | PRG ---
DATE OF SERVICE: 05/19/2017 SUBJECTIVE: Mr. Rosen is scheduled go down for a cholecystostomy tube because he has acalculous cho lecystitis and he is considered a prohibitive risk for surgery at this time. PHYSICAL EXAMINATION: VITAL SIGNS: His temperature is 97.6, pulse 85, respirations 20, O2 sat 90%, blood pressure 90/55. HEENT: Unremarkable. NECK: No JVD. LUNGS: Clear. CARDIAC: S1 and S2 regular. ABDOMEN: He has a little tenderness in the right upper quadrant. EXTREMITIES: No clubbing, cyanosis, or edema. LABORATORY DATA: White blood count 11.4, hematocrit 32, platelet count 247 with 69% neutrophils, 24% bands. INR 1.2. Sodium 130, potassium 3.7, chloride 103, CO2 of 23, BUN 53, creatinine 2.3, glucos e 188. ASSESSMENT: 1. Acalculous cholecystitis. 2. Cardiomyopathy. PLAN: He is continuing antibiotic coverage with Levaquin. He will have a cholecystostomy tube place d today. His diuretics have been discontinued. I will give him fluid bolus. He will be monitored c kylahly. I advised his that he may get worse in the short term and that may necessitate transfer over the CCU.
--- NOTE | 2017-05-19 20:23 | PDOC.EVN ---
Event Note - Event Note Event Note: RN called - body fluid + for GN susie. Will cont Levaquin. Patient allergic to PCN.
[2017-05-19] MEDS: Temazepam 15 MG CAP PO SCH (21:47)
[2017-05-19] MEDS: Atorvastatin Calcium 40 MG TAB PO SCH (21:47)
[2017-05-19] MEDS: Sodium Chloride 0.9% 1,000 ML IV SCH (21:50)
[2017-05-19] MEDS: HYDROcodone/Acetaminophen 5/325 mg Tablet PO PRN (23:43)
--- NOTE | 2017-05-20 06:25 | CON ---
Ceci Matamoros, GREG-C dictating for Amarjit Christine M.D. ELECTROPHYSIOLOGY CONSULTATION DATE OF CONSULTATION: 05/19/2017 REFERRING PHYSICIAN: Donnie Perry M.D. REASON FOR CONSULTATION: Chronic systolic heart failure and reduced ejection fraction. HISTORY OF PRESENT ILLNESS: Mr. Rosen is a 72-year-old patient with history of severe coronary artery disease. He presented to the emergency room on 2017, 3 days prior, with recurrent epigastric abdominal pain with some associated nausea. He denies any fevers, chills, nausea, or vomiting. He has had some similar episodes in the near past. Upon presentation to the emergency room, his troponin I with mildly elevated and did peak at 1.037 on the and underwent evaluation for ischemia. He had a left heart catheterization with Dr. Perry, which found left main and three-vessel coronary artery disease, 2 out of 4 bypass grafts were patent and patient had a severely impaired ventricular function which according to Dr. Perry is currently 10% to 15%. Continued to have moderate to severe mitral regurgitation. There was no PCI performed. He has also had a HIDA scan suggesting acalculous cholecystitis, acute versus chronic and today, he is having a gallbladder drain placed. The patient is awake, lying in bed. He reports shortness of breath, fatigue and generally feeling poorly. He does not currently have any significant pain, but does with movement that is epigastric and increases with movement and ad palpitations. Denies any heart racing or palpitations. He has had atypical chest pain as described above. He has not had any stroke or stroke like symptoms. He denies any syncope or near syncope. PAST MEDICAL HISTORY: 1. Significant for severe coronary artery disease with prior 4-vessel bypass grafting, chronic congestive heart failure with a previously reduced EF at 25% to 30%, which had then recovered to 40% to 45% and currently is estimated at 10 % to 15%. 2. Essential hypertension. 3. Type 2 diabetes. 4. Hyperlipidemia. SOCIAL HISTORY: The patient is retired and lives with his . Negative for tobacco habituation, alcohol abuse, or illicit drug use. ALLERGIES: Include PENICILLIN. FAMILY HISTORY: Noncontributory. REVIEW OF SYSTEMS: Ten-point review of systems is conducted and is unremarkable except for that listed in HPI. HOME MEDICATIONS: Aspirin 325 mg daily, atorvastatin 80 mg daily, carvedilol 6.25 mg daily, Lasix 40 mg daily, isosorbide mononitrate 60 mg daily, lisinopril 10 mg b.i.d., metformin 1000 mg b.i.d., temazepam 30 mg daily, allopurinol 300 mg daily, Ranexa 1000 mg b.i.d., and Zetia 5 mg daily. PHYSICAL EXAMINATION: VITAL SIGNS: Include temperature 97.6 degrees Fahrenheit, pulse is 75, blood pressure 122/68, respirations are 20, oxygen saturation 98% on room air. GENERAL: The patient is alert and oriented. He appears short of breath if he lies in bed, but he is completely flat. Speech is clear. His affect is appropriate. HEENT: EOMs are intact. Pupils are equal, round, and reactive and accommodating to light. Sclerae are anicteric. NECK: Supple without jugular venous distention. There is no lymphadenopathy or bruits present. PULMONARY: There are bilateral fine crackles. Respirations are rapid and he does appear short of breath. CARDIOVASCULAR: Heart rate is regularly irregular. EXTREMITIES: Lower extremities are warm and dry to touch without clubbing, cyanosis or edema. ABDOMEN: Obese, soft, it is not palpated given his cholecystitis. Positive for bowel sounds. NEUROLOGIC: Cranial nerves II-XII grossly intact and exam is nonfocal. LABORATORY DATA: Chemistry from today Sodium 138, potassium 3.7, chloride 103, carbon dioxide 23, BUN is 53, creatinine 2.38 (0.96 on admission), calcium is 8.7, AST is 39, ALT is 20. Troponin I peaked at 1.037. Hematology: WBC 11.4, hemoglobin 10.4, hematocrit 32, and platelet count is 247. HIDA scan on 2017, impression nonvisualization of the gallbladder showed cystic duct obstruction which may be a sequela of acute or chronic cholecystitis. Chest x- ray on 05/17/2017, heart is enlarged, mild prominence of pulmonary vascularity. No lobar consolidation, pneumothoraces, or large effusion seen. Mild atelectatic changes of the left lung base. EKG and telemetry reviewed personally. The patient is currently maintaining sinus mechanism with a narrow QRS complex. There is a single episode of nonsustained VT (5 beats in duration). IMPRESSION: 1. Congestive heart failure and ischemic cardiomyopathy with fluctuating left ventricular ejection fraction severely reduced at 10% to 15% most recently assessed on 05/14/2017, with left heart catheterization. 2. Acute versus chronic cholecystitis. The patient is undergoing gallbladder drain placement today. 3. Coronary artery disease, prior coronary artery bypass grafting in 2 out of 4 grafts occluded. 4. Severe mitral regurgitation. 5. Nonsustained ventricular tachycardia. 6. Non-ST elevation myocardial infarction with elevated troponin I peaking at 1.037. PLAN: The patient is a candidate for an ICD implant after 40 days given his recent troponin elevation and non-ST elevation myocardial infarction. Consider LifeVest in the interim.Hopefully his cholecystitis also settles during this wait period. Thank you for the referral and allowing us to participate in the care of this patient. MANISH
--- NOTE | 2017-05-20 08:54 | PRG ---
DATE OF SERVICE: 05/14/2017 SUBJECTIVE: He feels better after his cholecystotomy drain yesterday. PHYSICAL EXAMINATION: VITAL SIGNS: Temperature 97.5 with a T-max of 100.5, pulse 89, respirations 19, O2 sat 100% on 3 lit ers. HEENT: Unremarkable. NECK: No JVD. CHEST: Fairly clear. CARDIAC: S1 and S2 regular. ABDOMEN: Soft. EXTREMITIES: No edema. LABORATORY DATA: His urine output has been better over the last several hours. No labs were obtaine d today. ASSESSMENT: 1. Acalculous cholecystitis. 2. Cardiomyopathy. PLAN: 1. Continue low dose IV fluids. 2. Recheck labs tomorrow. 3. Continue antibiotics.
[2017-05-20] MEDS: Allopurinol 300 MG TAB PO SCH (09:47)
[2017-05-20] MEDS: Aspirin 325 MG TAB PO SCH (09:48)
[2017-05-20] MEDS: Multivitamin W/ Minerals 1 TAB PO SCH (09:48)
[2017-05-20] MEDS: Ezetimibe 10 MG TAB PO SCH (09:48)
[2017-05-20] MEDS: Docusate 100 MG CAP PO SCH ×2 (09:48→20:46)
[2017-05-20] MEDS: Sodium Chloride 0.9% 1,000 ML IV SCH (10:00)
--- NOTE | 2017-05-20 10:05 | PRG ---
DATE OF SERVICE: 05/20/2017 SUBJECTIVE: Mr. Rosen seems to be doing fair today, somewhat relief from the abdominal discomfort a fter his pericholecystic drain was placed last night. OBJECTIVE DATA: VITAL SIGNS: Blood pressure is 90/56, heart rate 71, respiration is 18, temperature 97.3 degrees Fah renheit. GENERAL: Alert and oriented, somewhat though depressed appearing elderly man in no apparent distress . NECK: Supple. Jugular veins not distended. CHEST: Coarse without crackles. CARDIOVASCULAR: Heart sounds are regular to rate and rhythm. No murmur or gallop. ABDOMEN: Benign. Bowel sounds positive. EXTREMITIES: Lower extremities without edema, clubbing or cyanosis. DATABASE: Telemetry strips reveals continued sinus rhythm. LABORATORY DATA: White count 11.4, hemoglobin 10.4, platelet count is 247 yesterday. BUN is 23, creatinine is 2.38. ASSESSMENT AND PLAN: Mr. Rosen is a 72-year-old man with history of longstanding LV dysfunction due to ischemic cardiomyopathy with most recent LVEF as per report which was 10-15%. He also had nonsus tained ventricular arrhythmias. He has got significant bypass graft disease, 2 out of 4 is occluded and also severe mitral regurgitation. Currently, with abdominal discomfort with cholecystitis suspec olvin. He is being treated for that. His mild troponin elevation considered, nonsustained MS and at t his point, we are recommending continued medical management. He might benefit from LifeVest placemen t. If overall status improves it would be not unreasonable to consider an ICD implantation 4 days fr om a recurrent admission providing his LVEF does not improve drastically. Routine follow up will be requested in about 6-8 weeks. I will sign off. Please call us if I can be of any further help.
--- NOTE | 2017-05-20 10:31 | PDOC.PN ---
- Subjective Encounter Start Date: 05/20/17 Encounter Start Time: 09:40 pt is overall doing ok, but very weak, still gets intermittent fever no dyspnea - Objective Resuscitation Status: Resuscitation Status FULL:Full Resuscitation MAR Reviewed: Yes Vital Signs & Weight: Vital Signs (12 hours) Temp Pulse Resp BP Pulse Ox 05/20/17 08:00 97.3 F L 71 18 98/56 L 100 05/20/17 04:00 97.5 F L 79 19 102/66 100 05/20/17 00:00 100.2 F H 105 H 22 H 129/67 98 Weight Weight 203 lb 11.2 oz I&O: 05/19/17 05/20/17 05/21/17 06:59 06:59 06:59 Intake Total 950 1150 Output Total 475 910 Balance 475 240 Result Diagrams: 05/19/17 11:28 05/19/17 11:28 Additional Labs: Accuchecks 05/20/17 05/19/17 05/19/17 05:38 21:15 11:31 POC Glucose 182 H 122 H 178 H Radiology Reviewed by me: Yes (HIDA scan) EKG Reviewed by me: Yes (NSR) Phys Exam - Physical Examination Constitutional: NAD HEENT: PERRLA, moist MMs, sclera anicteric Neck: no JVD, supple Respiratory: no wheezing, no rales, no rhonchi Cardiovascular: RRR, no significant murmur, no rub Gastrointestinal: soft, non-tender, no distention, positive bowel sounds cholecystostomy tube+ Musculoskeletal: no edema, pulses present Neurological: non-focal, normal sensation Lymphatic: no nodes Psychiatric: normal affect Skin: no rash, normal turgor Dx/Plan (1) Acute acalculous cholecystitis Code(s): K81.0 - ACUTE CHOLECYSTITIS Status: Acute (2) Sepsis with acute organ dysfunction Code(s): A41.9 - SEPSIS, UNSPECIFIED ORGANISM; R65.20 - SEVERE SEPSIS WITHOUT SEPTIC SHOCK Status: Acute (3) NSTEMI (non-ST elevated myocardial infarction) Code(s): I21.4 - NON-ST ELEVATION (NSTEMI) MYOCARDIAL INFARCTION Status: Acute (4) Chronic systolic heart failure Code(s): I50.22 - CHRONIC SYSTOLIC (CONGESTIVE) HEART FAILURE Status: Chronic (5) Diabetes type 2, controlled Code(s): E11.9 - TYPE 2 DIABETES MELLITUS WITHOUT COMPLICATIONS Status: Chronic (6) Dyslipidemia Code(s): E78.5 - HYPERLIPIDEMIA, UNSPECIFIED Status: Chronic (7) Gout Code(s): M10.9 - GOUT, UNSPECIFIED Status: Chronic (8) Hypotension Status: Resolved (9) NSVT (nonsustained ventricular tachycardia) Code(s): I47.2 - VENTRICULAR TACHYCARDIA Status: Chronic (10) Severe mitral regurgitation Code(s): I34.0 - NONRHEUMATIC MITRAL (VALVE) INSUFFICIENCY Status: Chronic - Plan cont current plan of care, continue antibiotics, PT/OT, social work msw * continue gentle IVF * continue levaquin * follow fluid culture * life vest as per EP before discharge * medication reviewed as below * symptomatic treatment * will monitor in hospital * cholecystostomy care. Review of Systems - Review of Systems ENT: negative: Ear Pain, Ear Discharge, Nose Pain, Nose Discharge, Nose Congestion, Mouth Pain, Mouth Swelling, Throat Pain, Throat Swelling, Other Respiratory: negative: Cough, Dry, Shortness of Breath, Hemoptysis, SOB with Excertion, Pleuritic Pain, Sputum, Wheezing Cardiovascular: negative: chest pain, palpitations, orthopnea, paroxysmal nocturnal dyspnea, edema, light headedness, other Gastrointestinal: negative: Nausea, Vomiting, Abdominal Pain, Diarrhea, Constipation, Melena, Hematochezia, Other Genitourinary: negative: Dysuria, Frequency, Incontinence, Hematuria, Retention , Other Musculoskeletal: negative: Neck Pain, Shoulder Pain, Arm Pain, Back Pain, Hand Pain, Leg Pain, Foot Pain, Other Skin: negative: Rash, Lesions, Chaka, Bruising, Other - Medications/Allergies Allergies/Adverse Reactions: Allergies Allergy/AdvReac Type Severity Reaction Status Date / Time Penicillins Allergy Intermediate Swollen Verified 05/14/17 22:54 Lips Medications: Current Medications Acetaminophen (Tylenol) 650 mg PO Q4H PRN PRN Reason: Headache/Fever or Pain Last Admin: 05/15/17 21:08 Dose: 650 mg Acetaminophen/Codeine Phosphate (Tylenol #3) 1 tab PO Q4H PRN PRN Reason: Mild Pain (1-3) Acetaminophen/Codeine Phosphate (Tylenol #3) 2 tab PO Q4H PRN PRN Reason: Moderate Pain (4-6) Last Admin: 05/18/17 09:24 Dose: 2 tab Hydrocodone Bitart/Acetaminophen ([place] 5/325) 1 tab PO Q4H PRN PRN Reason: Moderate Pain (4-6) Last Admin: 05/19/17 23:43 Dose: 1 tab Al Hydroxide/Mg Hydroxide (Maalox) 15 ml PO Q4H PRN PRN Reason: Heartburn or Indigestion Allopurinol (Zyloprim) 300 mg PO DAILY [facility] Last Admin: 05/20/17 09:47 Dose: 300 mg Artificial Tears (Tears Naturale) 0 drop EA EYE PRN PRN PRN Reason: Dry Eyes Aspirin (Aspirin) 325 mg PO DAILY [facility] Last Admin: 05/20/17 09:48 Dose: 325 mg Atorvastatin Calcium (Lipitor) 80 mg PO HS [facility] Last Admin: 05/19/17 21:47 Dose: 80 mg Benzonatate (Tessalon) 100 mg PO Q4H PRN PRN Reason: Cough Dextrose/Water (Dextrose 50%) 25 gm SLOW IVP PRN PRN PRN Reason: Hypoglycemia Docusate Sodium (Colace) 100 mg PO BID [facility] Last Admin: 05/20/17 09:48 Dose: 100 mg Ezetimibe (Zetia) 10 mg PO DAILY [facility] Last Admin: 05/20/17 09:48 Dose: 10 mg Glucagon (Glucagon) 1 mg IM PRN PRN PRN Reason: Hypoglycemia Guaifenesin (Robitussin Sf) 200 mg PO Q4H PRN PRN Reason: Cough Hydralazine HCl (Apresoline) 10 mg SLOW IVP Q4H PRN PRN Reason: Systolic BP > 180 Dextrose/Water (D5w) 1,000 mls @ 0 mls/hr IV .Q0M PRN; As Directed PRN Reason: Hypoglycemia Levofloxacin 500 mg/ Device 100 mls @ 100 mls/hr IVPB Q24HR [facility] Last Admin: 05/20/17 09:50 Dose: 100 mls Sodium Chloride (Normal Saline 0.9%) 1,000 mls @ 75 mls/hr IV .[id number] [facility] Last Admin: 05/19/17 21:50 Dose: 1,000 mls Insulin Human Lispro (Humalog) 0 units SC .MODERATE SLIDING SC PRN PRN Reason: Moderate Correctional Scale Insulin Human Lispro (Humalog) 0 units SC .BEDTIME SLIDING SC PRN PRN Reason: Bedtime Correctional Scale Iron/Minerals/Multivitamins (Theragran M) 1 tab PO DAILY [facility] Last Admin: 05/20/17 09:48 Dose: 1 tab Loperamide HCl (Imodium) 2 mg PO PRN PRN PRN Reason: Diarrhea/Loose Stools Loratadine (Claritin) 10 mg PO DAILYPRN PRN PRN Reason: Sinus Symptoms Magnesium Hydroxide (Milk Of Magnesium) 30 ml PO DAILYPRN PRN PRN Reason: Constipation Mineral Oil/White Petrolatum (Eucerin Cream) 0 gm TOP BIDPRN PRN PRN Reason: Dry Skin Morphine Sulfate (Morphine) 2 mg SLOW IVP Q2H PRN PRN Reason: Chest Pain Last Admin: 05/18/17 02:31 Dose: 2 mg Morphine Sulfate (Morphine) 4 mg SLOW IVP Q4H PRN PRN Reason: Pain Nitroglycerin (Nitrostat) 0.4 mg SL Q5MIN PRN PRN Reason: Chest Pain Ondansetron HCl (Zofran Odt) 4 mg PO Q6H PRN PRN Reason: Nausea/Vomiting Last Admin: 05/15/17 08:03 Dose: 4 mg Ondansetron HCl (Zofran) 4 mg IVP Q6H PRN PRN Reason: Nausea/Vomiting Pantoprazole Sodium (Protonix) 40 mg PO BID [facility] Last Admin: 05/20/17 09:50 Dose: 40 mg Ranolazine (Ranexa) 1,000 mg PO BID [facility] Last Admin: 05/20/17 09:48 Dose: 1,000 mg Sodium Chloride ([place] Nasal [place] 0.65%) 0 ml EA NARE QIDPRN PRN PRN Reason: Nasal Congestion Sodium Chloride (Flush - Normal Saline) 10 ml IVF Q12HR [facility] Last Admin: 05/20/17 09:49 Dose: Not Given Sodium Chloride (Flush - Normal Saline) 10 ml IVF PRN PRN PRN Reason: Saline Flush Temazepam (Restoril) 30 mg PO HS [facility] Last Admin: 05/19/17 21:47 Dose: 30 mg Tramadol HCl (Ultram) 50 mg PO Q6H PRN PRN Reason: Moderate Pain (4-6) Last Admin: 05/15/17 21:08 Dose: 50 mg
--- NOTE | 2017-05-20 10:36 | CT ---
CT PERITONEAL ABSCESS DRAINAGE 05/19/17 HISTORY: Cholecystitis. COMPARISON: HIDA scan same day. FINDINGS: Patient brought to the CT Suite. All questions were answered. The patient's right abdomen was prepped and draped in a normal sterile fashion. Informed consent was obtained. Timeout was performed. CT fluoroscopic guidance was used. Using a 5 [place] Yueh needle, the gallbladder was accessed. The trocar was replaced and a wire was placed through the tubing. Over the wire, an 8 [place] Uresil drainage catheter was placed. The patient tolerated the procedure well with out complication. 95 mL of fluid was aspirated. IMPRESSION: Technically successful percutaneous cholecystostomy placement under CT guidance.
[2017-05-20 12:16] LABS: ALT (SGPT) 29 U/L (8-55); AST (SGOT) 69 U/L (5-34); Albumin 2.7 g/dL (3.4-4.8); Alkaline Phosphatase 112 U/L (40-150); Anion Gap 15 mmol/L (10-20); BUN (Urea Nitrogen) 58 mg/dL (8.4-25.7); Bilirubin, Total 1.8 mg/dL (0.2-1.2); Calc. Creatinine Clearance 43 mL/min (70-130); Calcium 8.1 mg/dL (7.8-10.44); Carbon Dioxide 21 mmol/L (23-31); Chloride 104 mmol/L (98-107); Estimated GFR-MDRD 33; Globulin 3.1 g/dL (2.4-3.5); Glucose 224 mg/dL (83-110); Potassium 3.6 mmol/L (3.5-5.1); Protein, Total 5.8 g/dL (5.8-8.1); Sodium 136 mmol/L (136-145)
[2017-05-20 12:18] LABS: Band 26 % (5-11); Lymphocytes 9 % (21-51); MDiff Complete? YES; Mean Corpuscular HGB CONC 32.7 g/dL (32.0-36.0); Mean Corpuscular Hemoglobin 28.1 pg (27.0-31.0); Mean Platelet Volume 7.2 fL (7.4-10.4); Monocytes 1 % (0-10); Neutrophil 64 % (42-75); Platelet Count 231 thou/uL (130-400); RBC Distribution Width 14.4 % (11.5-14.5); Red Blood Cell (RBC) Count 3.56 mill/uL (4.70-6.10); White Blood Cell (WBC) Count 8.1 thou/uL (4.8-10.8)
--- NOTE | 2017-05-20 16:49 | EKG ---
Test Reason : STAT Blood Pressure : / mmHG Vent. Rate : 091 BPM Atrial Rate : 091 BPM P-R Int : 200 ms QRS Dur : 124 ms QT Int : 378 ms P-R-T Axes : 061 036 002 degrees QTc Int : 464 ms Normal sinus rhythm Non-specific intra-ventricular conduction delay Possible Left atrial enlargement Inferior infarct (cited on or before 05-OCT-1995) Abnormal ECG Confirmed by TAHIR SNOW ([id number]) on 05/20/2017 4:49:11 PM Referred By: MELISSA Confirmed By:TAHIR SNOW
--- NOTE | 2017-05-20 17:15 | PRG ---
DATE OF SERVICE: 05/20/2017 ATTENDING PHYSICIAN: Gerard Pan D.O. SUBJECTIVE: Mr. Rosen is a 72-year-old male with a history of severe CAD. A Surgery consult was re quested given the patient's history of recurrent epigastric abdominal pain x3 days. This was associa olvin with nausea, but no emesis. A CT scan of the abdomen and pelvis demonstrated a dilated gallbladd er. HIDA scan was performed yesterday, which also showed a dilated gallbladder with obstruction; how ever, there were no stones. Given the patient's significant medical comorbidities, he was not felt t o be an appropriate candidate for surgical removal of his gallbladder. A percutaneous cholecystostom y tube was placed yesterday. The patient tolerated the procedure well and is stable in the [facility]. OBJECTIVE: VITAL SIGNS: BP 98/56, pulse 71, temperature 97.3, respirations 18, O2 sat 100% on 3 liters nasal ca nnula. GENERAL: The patient is a late middle-aged adult male resting in bed, in no acute distress. He does appear somewhat somnolent. HEENT: Normocephalic and atraumatic. RESPIRATORY: His breath sounds are clear to auscultation bilaterally with normal effort. CARDIOVASCULAR: Regular rate and rhythm. No murmurs, gallops or rubs. ABDOMEN: Soft and nondistended. He has a percutaneous cholecystostomy tube in place, which is drain ing bilious fluid. EXTREMITIES: He is neurovascularly intact x4. NEUROLOGIC: He has no apparent focal deficits. The patient appears grossly alert and oriented. LABORATORY DATA: Hematology: WBC is 8.1, hemoglobin 10.0, hematocrit 30.6, platelets 231. Chemistr y: Sodium 136, potassium 3.6, chloride 104, bicarbonate 21, BUN 58, creatinine 2.01, glucose 224, ca lcium 8.1, total bilirubin 1.8, AST 69, ALT 29, alkaline phosphatase 112, serum total protein 5.8, al bumin 2.7, globulin 3.1, albumin globulin ratio 0.9. IMAGING: There are no radiographic or other images to review today. ASSESSMENT: 1. Acalculous cholecystitis. 2. History of severe coronary artery disease. 3. History of type 2 diabetes. 4. Acute kidney injury. PLAN: 1. The percutaneous cholecystostomy tube. We will provide some comfort to the patient. He should k eep his drain in place and follow up with Surgery as an outpatient in 4-6 weeks after discharge. He will likely need home health care for help with managing his drain at home. 2. Surgery will sign off on this patient at this time. Please do not hesitate to contact us for fur ther issues that arise or with any questions. Thank you for the opportunity to care for this patient. This patient was seen and examined along with Dr. Gerard Pan on rounds and agrees with the assessm ent and plan.
[2017-05-20] MEDS: Atorvastatin Calcium 40 MG TAB PO SCH (20:46)
[2017-05-20] MEDS: Temazepam 15 MG CAP PO SCH (21:56)
[2017-05-21] MEDS: Sodium Chloride 0.9% 1,000 ML IV SCH ×2 (03:09→21:03)
[2017-05-21 04:11] LABS: #Eosinphils 0.1 thou/uL (0.0-0.7); #Lymphocytes 0.7 thou/uL (1.20-3.40); #Monocytes 0.5 thou/uL (0.11-0.59); #Neutrophils 5.1 thou/uL (1.40-6.50); %Basophils 0.1 % (0.0-1.0); %Eosinophils 1.4 % (0.0-10.0); %Lymphocytes 10.2 % (21.0-51.0); %Monocytes 7.9 % (0.0-10.0); %Neutrophils 80.3 % (42.0-75.0); Hemoglobin 10.2 g/dL (14.0-18.0); Mean Corpuscular HGB CONC 32.8 g/dL (32.0-36.0); Mean Corpuscular Hemoglobin 28.1 pg (27.0-31.0); Mean Corpuscular Volume 85.7 fl (80.0-94.0); Mean Platelet Volume 6.9 fL (7.4-10.4); Platelet Count 254 thou/uL (130-400); RBC Distribution Width 14.5 % (11.5-14.5); Red Blood Cell (RBC) Count 3.65 mill/uL (4.70-6.10); White Blood Cell (WBC) Count 6.4 thou/uL (4.8-10.8)
[2017-05-21 04:36] LABS: Anion Gap 11 mmol/L (10-20); BUN (Urea Nitrogen) 55 mg/dL (8.4-25.7); Calc. Creatinine Clearance 53 mL/min (70-130); Calcium 8.4 mg/dL (7.8-10.44); Carbon Dioxide 25 mmol/L (23-31); Chloride 105 mmol/L (98-107); Estimated GFR-MDRD 42; Glucose 165 mg/dL (83-110); Potassium 3.7 mmol/L (3.5-5.1); Sodium 137 mmol/L (136-145)
--- NOTE | 2017-05-21 09:03 | PRG ---
DATE OF SERVICE: 05/21/2017 The patient remains unhappy. He says he is still having some deep abdominal pain. PHYSICAL EXAMINATION: VITAL SIGNS: Temperature 97.9, pulse 80, respirations 22, O2 sat 99% on 2 liters, blood pressure 130 /59. HEENT: Unremarkable. NECK: No JVD. CHEST: Clear. CARDIAC: S1 and S2 regular. ABDOMEN: Soft. EXTREMITIES: No edema. LABORATORY DATA: White blood cell count 6.4, hematocrit 31.2, platelet count 254. Sodium 137, potas sium 3.7, chloride 105, CO2 25, BUN 55, creatinine 1.6, glucose 165. ASSESSMENT: 1. Prerenal azotemia. 2. Acalculous cholecystitis. 3. Status post cholecystostomy tube insertion. PLAN: 1. Continue antibiotics. 2. Up in chair as tolerated. 3. Continue slow IV hydration.
[2017-05-21] MEDS: Ezetimibe 10 MG TAB PO SCH (09:19)
[2017-05-21] MEDS: Docusate 100 MG CAP PO SCH ×2 (09:19→21:03)
[2017-05-21] MEDS: Multivitamin W/ Minerals 1 TAB PO SCH (09:19)
[2017-05-21] MEDS: Allopurinol 300 MG TAB PO SCH (09:20)
[2017-05-21] MEDS: Aspirin 325 MG TAB PO SCH (09:20)
--- NOTE | 2017-05-21 09:56 | PDOC.PN ---
- Subjective Encounter Start Date: 05/21/17 Encounter Start Time: 08:50 Patient seen and examined. No new complaints. No overnight events feels weak, no fever - Objective Resuscitation Status: Resuscitation Status FULL:Full Resuscitation MAR Reviewed: Yes Vital Signs & Weight: Vital Signs (12 hours) Temp Pulse Resp BP Pulse Ox 05/21/17 07:21 97.9 F 80 22 H 130/59 L 99 05/21/17 04:00 97.5 F L 78 20 123/45 L 100 05/21/17 00:00 98.2 F 77 16 102/60 99 Weight Weight 205 lb 3.2 oz I&O: 05/20/17 05/21/17 05/22/17 06:59 06:59 06:59 Intake Total 1150 3325 Output Total 910 1110 Balance 240 2215 Result Diagrams: 05/21/17 03:37 05/21/17 03:37 Additional Labs: Accuchecks 05/21/17 05/20/17 05/20/17 05:51 22:00 16:54 POC Glucose 148 H 162 H 161 H 05/20/17 11:52 POC Glucose 231 H Phys Exam - Physical Examination Constitutional: NAD HEENT: PERRLA, moist MMs, sclera anicteric Neck: no JVD, supple Respiratory: no wheezing, no rales, no rhonchi Cardiovascular: RRR, no significant murmur, no rub Gastrointestinal: soft, non-tender, no distention, positive bowel sounds choleycystostomy drain in place, ocasio in place Musculoskeletal: no edema, pulses present Neurological: non-focal, normal sensation, moves all 4 limbs Psychiatric: normal affect, A&O x 3 Skin: no rash, normal turgor Dx/Plan (1) Acute acalculous cholecystitis Code(s): K81.0 - ACUTE CHOLECYSTITIS Status: Acute (2) Sepsis with acute organ dysfunction Code(s): A41.9 - SEPSIS, UNSPECIFIED ORGANISM; R65.20 - SEVERE SEPSIS WITHOUT SEPTIC SHOCK Status: Acute (3) NSTEMI (non-ST elevated myocardial infarction) Code(s): I21.4 - NON-ST ELEVATION (NSTEMI) MYOCARDIAL INFARCTION Status: Acute (4) Chronic systolic heart failure Code(s): I50.22 - CHRONIC SYSTOLIC (CONGESTIVE) HEART FAILURE Status: Chronic (5) Diabetes type 2, controlled Code(s): E11.9 - TYPE 2 DIABETES MELLITUS WITHOUT COMPLICATIONS Status: Chronic (6) Dyslipidemia Code(s): E78.5 - HYPERLIPIDEMIA, UNSPECIFIED Status: Chronic (7) Gout Code(s): M10.9 - GOUT, UNSPECIFIED Status: Chronic (8) Hypotension Status: Resolved (9) NSVT (nonsustained ventricular tachycardia) Code(s): I47.2 - VENTRICULAR TACHYCARDIA Status: Chronic (10) Severe mitral regurgitation Code(s): I34.0 - NONRHEUMATIC MITRAL (VALVE) INSUFFICIENCY Status: Chronic (11) Acute kidney failure Status: Acute (12) Physical deconditioning Code(s): R53.81 - OTHER MALAISE Status: Acute - Plan cont current plan of care, continue antibiotics, PT/OT, hospice social worker * transfer to [facility] * start PT/OT * discharge planning * continue cholecystostomy drain care * will need placement * continue levaquin * continue IVF * renal function improving. Review of Systems - Review of Systems Constitutional: weakness. negative: fever, chills, sweats, malaise, other ENT: negative: Ear Pain, Ear Discharge, Nose Pain, Nose Discharge, Nose Congestion, Mouth Pain, Mouth Swelling, Throat Pain, Throat Swelling, Other Respiratory: negative: Cough, Dry, Shortness of Breath, Hemoptysis, SOB with Excertion, Pleuritic Pain, Sputum, Wheezing Cardiovascular: negative: chest pain, palpitations, orthopnea, paroxysmal nocturnal dyspnea, edema, light headedness, other Gastrointestinal: negative: Nausea, Vomiting, Abdominal Pain, Diarrhea, Constipation, Melena, Hematochezia, Other Genitourinary: negative: Dysuria, Frequency, Incontinence, Hematuria, Retention , Other Musculoskeletal: negative: Neck Pain, Shoulder Pain, Arm Pain, Back Pain, Hand Pain, Leg Pain, Foot Pain, Other Skin: negative: Rash, Lesions, Chaka, Bruising, Other - Medications/Allergies Allergies/Adverse Reactions: Allergies Allergy/AdvReac Type Severity Reaction Status Date / Time Penicillins Allergy Intermediate Swollen Verified 05/14/17 22:54 Lips Medications: Current Medications Acetaminophen (Tylenol) 650 mg PO Q4H PRN PRN Reason: Headache/Fever or Pain Last Admin: 05/15/17 21:08 Dose: 650 mg Acetaminophen/Codeine Phosphate (Tylenol #3) 1 tab PO Q4H PRN PRN Reason: Mild Pain (1-3) Acetaminophen/Codeine Phosphate (Tylenol #3) 2 tab PO Q4H PRN PRN Reason: Moderate Pain (4-6) Last Admin: 05/18/17 09:24 Dose: 2 tab Hydrocodone Bitart/Acetaminophen ([place] 5/325) 1 tab PO Q4H PRN PRN Reason: Moderate Pain (4-6) Last Admin: 05/19/17 23:43 Dose: 1 tab Al Hydroxide/Mg Hydroxide (Maalox) 15 ml PO Q4H PRN PRN Reason: Heartburn or Indigestion Allopurinol (Zyloprim) 300 mg PO DAILY [facility] Last Admin: 05/21/17 09:20 Dose: 300 mg Artificial Tears (Tears Naturale) 0 drop EA EYE PRN PRN PRN Reason: Dry Eyes Aspirin (Aspirin) 325 mg PO DAILY [facility] Last Admin: 05/21/17 09:20 Dose: 325 mg Atorvastatin Calcium (Lipitor) 80 mg PO HS [facility] Last Admin: 05/20/17 20:46 Dose: 80 mg Benzonatate (Tessalon) 100 mg PO Q4H PRN PRN Reason: Cough Dextrose/Water (Dextrose 50%) 25 gm SLOW IVP PRN PRN PRN Reason: Hypoglycemia Docusate Sodium (Colace) 100 mg PO BID [facility] Last Admin: 05/21/17 09:19 Dose: 100 mg Ezetimibe (Zetia) 10 mg PO DAILY [facility] Last Admin: 05/21/17 09:19 Dose: 10 mg Glucagon (Glucagon) 1 mg IM PRN PRN PRN Reason: Hypoglycemia Guaifenesin (Robitussin Sf) 200 mg PO Q4H PRN PRN Reason: Cough Hydralazine HCl (Apresoline) 10 mg SLOW IVP Q4H PRN PRN Reason: Systolic BP > 180 Dextrose/Water (D5w) 1,000 mls @ 0 mls/hr IV .Q0M PRN; As Directed PRN Reason: Hypoglycemia Levofloxacin 500 mg/ Device 100 mls @ 100 mls/hr IVPB Q24HR [facility] Last Admin: 05/21/17 09:18 Dose: 100 mls Sodium Chloride (Normal Saline 0.9%) 1,000 mls @ 75 mls/hr IV .[id number] [facility] Last Admin: 05/21/17 03:09 Dose: 1,000 mls Insulin Human Lispro (Humalog) 0 units SC .MODERATE SLIDING SC PRN PRN Reason: Moderate Correctional Scale Insulin Human Lispro (Humalog) 0 units SC .BEDTIME SLIDING SC PRN PRN Reason: Bedtime Correctional Scale Iron/Minerals/Multivitamins (Theragran M) 1 tab PO DAILY [facility] Last Admin: 05/21/17 09:19 Dose: 1 tab Loperamide HCl (Imodium) 2 mg PO PRN PRN PRN Reason: Diarrhea/Loose Stools Loratadine (Claritin) 10 mg PO DAILYPRN PRN PRN Reason: Sinus Symptoms Magnesium Hydroxide (Milk Of Magnesium) 30 ml PO DAILYPRN PRN PRN Reason: Constipation Mineral Oil/White Petrolatum (Eucerin Cream) 0 gm TOP BIDPRN PRN PRN Reason: Dry Skin Morphine Sulfate (Morphine) 2 mg SLOW IVP Q2H PRN PRN Reason: Chest Pain Last Admin: 05/18/17 02:31 Dose: 2 mg Morphine Sulfate (Morphine) 4 mg SLOW IVP Q4H PRN PRN Reason: Pain Nitroglycerin (Nitrostat) 0.4 mg SL Q5MIN PRN PRN Reason: Chest Pain Ondansetron HCl (Zofran Odt) 4 mg PO Q6H PRN PRN Reason: Nausea/Vomiting Last Admin: 05/15/17 08:03 Dose: 4 mg Ondansetron HCl (Zofran) 4 mg IVP Q6H PRN PRN Reason: Nausea/Vomiting Pantoprazole Sodium (Protonix) 40 mg PO BID [facility] Last Admin: 05/21/17 09:20 Dose: 40 mg Ranolazine (Ranexa) 1,000 mg PO BID [facility] Last Admin: 05/21/17 09:19 Dose: 1,000 mg Sodium Chloride ([place] Nasal [place] 0.65%) 0 ml EA NARE QIDPRN PRN PRN Reason: Nasal Congestion Sodium Chloride (Flush - Normal Saline) 10 ml IVF Q12HR [facility] Last Admin: 05/21/17 09:23 Dose: 10 ml Sodium Chloride (Flush - Normal Saline) 10 ml IVF PRN PRN PRN Reason: Saline Flush Temazepam (Restoril) 30 mg PO HS [facility] Last Admin: 05/20/17 21:56 Dose: 30 mg Tramadol HCl (Ultram) 50 mg PO Q6H PRN PRN Reason: Moderate Pain (4-6) Last Admin: 05/15/17 21:08 Dose: 50 mg
[2017-05-21] MEDS: Atorvastatin Calcium 40 MG TAB PO SCH (21:03)
[2017-05-21] MEDS: Temazepam 15 MG CAP PO SCH (21:04)
[2017-05-22 05:23] LABS: Anion Gap 12 mmol/L (10-20); BUN (Urea Nitrogen) 38 mg/dL (8.4-25.7); Calc. Creatinine Clearance 71 mL/min (70-130); Calcium 8.7 mg/dL (7.8-10.44); Carbon Dioxide 25 mmol/L (23-31); Chloride 107 mmol/L (98-107); Estimated GFR-MDRD 58; Glucose 162 mg/dL (83-110); Potassium 3.7 mmol/L (3.5-5.1); Sodium 140 mmol/L (136-145)
[2017-05-22] MEDS: Aspirin 325 MG TAB PO SCH (10:02)
[2017-05-22] MEDS: Docusate 100 MG CAP PO SCH ×2 (10:02→20:31)
[2017-05-22] MEDS: Multivitamin W/ Minerals 1 TAB PO SCH (10:02)
[2017-05-22] MEDS: Ezetimibe 10 MG TAB PO SCH (10:02)
[2017-05-22] MEDS: Allopurinol 300 MG TAB PO SCH (10:03)
--- NOTE | 2017-05-22 10:12 | PRG ---
DATE OF SERVICE: 05/22/2017 The patient seems to be doing better than before. He says he is having less pain. PHYSICAL EXAMINATION: VITAL SIGNS: Temperature 97.8, pulse 82, respirations 21, O2 sat 98% on 1 liter. HEENT: Unremarkable. NECK: No JVD. LUNGS: Clear. CARDIAC: S1 and S2 regular. ABDOMEN: He has got a cholecystotomy tube on the right flank. Cultures from that grew out gram-nega tive rods. EXTREMITIES: No clubbing, cyanosis, or edema. LABORATORY DATA: Sodium 140, potassium 3.7, chloride 107, CO2 25, BUN 38, creatinine 1.2, glucose 16 2. ASSESSMENT: 1. Slowly improving acalculous cholecystitis. 2. Resolving sepsis syndrome. 3. Improved prerenal azotemia. PLAN: 1. Continue the IV Levaquin. 2. Continue IV fluids. 3. He can move out to the floor from my standpoint.
[2017-05-22] MEDS: Sodium Chloride 0.9% 1,000 ML IV SCH (12:47)
--- NOTE | 2017-05-22 16:38 | PDOC.PN ---
- Subjective Encounter Start Date: 05/22/17 Encounter Start Time: 16:36 CC: fatigue sub: pt c/o fatigue, denies nausea or vomiting - Objective Resuscitation Status: Resuscitation Status FULL:Full Resuscitation Vital Signs & Weight: Vital Signs (12 hours) Temp Pulse Resp BP Pulse Ox 05/22/17 15:26 96.4 F L 79 29 H 161/92 H 100 05/22/17 11:03 98.5 F 83 27 H 162/100 H 99 05/22/17 08:00 97.8 F 82 21 H 98 05/22/17 07:33 97.8 F 82 21 H 167/89 H 98 Weight Weight 207 lb 11.2 oz I&O: 05/21/17 05/22/17 05/23/17 06:59 06:59 06:59 Intake Total 3325 1700 Output Total 1110 2010 Balance 2215 -001 Result Diagrams: 05/21/17 03:37 05/22/17 04:29 Additional Labs: Accuchecks 05/22/17 05/22/17 05/21/17 10:58 06:11 21:14 POC Glucose 184 H 132 H 195 H 05/21/17 16:55 POC Glucose 143 H Dx/Plan - Plan Constitutional: NAD HEENT: PERRLA, moist MMs, sclera anicteric Neck: no JVD, supple Respiratory: no wheezing, no rales, no rhonchi Cardiovascular: RRR, no significant murmur, no rub Gastrointestinal: soft, non-tender, no distention, positive bowel sounds choleycystostomy drain in place, ocasio in place Musculoskeletal: no edema, pulses present Neurological: non-focal, normal sensation, moves all 4 limbs, alet and oriented Psychiatric: normal affect, A&O x 3 Skin: no rash, normal turgor Dx/Plan (1) Acute acalculous cholecystitis Code(s): K81.0 - ACUTE CHOLECYSTITIS Status: Acute (2) Sepsis with acute organ dysfunction Code(s): A41.9 - SEPSIS, UNSPECIFIED ORGANISM; R65.20 - SEVERE SEPSIS WITHOUT SEPTIC SHOCK Status: Acute (3) NSTEMI (non-ST elevated myocardial infarction) Code(s): I21.4 - NON-ST ELEVATION (NSTEMI) MYOCARDIAL INFARCTION Status: Acute (4) Chronic systolic heart failure Code(s): I50.22 - CHRONIC SYSTOLIC (CONGESTIVE) HEART FAILURE Status: Chronic (5) Diabetes type 2, controlled Code(s): E11.9 - TYPE 2 DIABETES MELLITUS WITHOUT COMPLICATIONS Status: Chronic (6) Dyslipidemia Code(s): E78.5 - HYPERLIPIDEMIA, UNSPECIFIED Status: Chronic (7) Gout Code(s): M10.9 - GOUT, UNSPECIFIED Status: Chronic (8) Hypotension Status: Resolved (9) NSVT (nonsustained ventricular tachycardia) Code(s): I47.2 - VENTRICULAR TACHYCARDIA Status: Chronic (10) Severe mitral regurgitation Code(s): I34.0 - NONRHEUMATIC MITRAL (VALVE) INSUFFICIENCY Status: Chronic (11) Acute kidney failure Status: Acute (12) Physical deconditioning Code(s): R53.81 - OTHER MALAISE Status: Acute - Plan cont iv levaquin Reviewed pulmonary note. Will continue miv fluids Plan to start procardia xl 60mg ialy due to uncontrolled htn creatinine improving. Will dc ocasio if ok with icu BP improved Continue PT/OT Plan to transfer to SNF when ok with Critical care team an when bp impoves. d/w pt & RN
[2017-05-22] MEDS ORDERED: NIFEdipine XL 60 MG TAB PO SCH (16:45)
[2017-05-22] MEDS: Temazepam 15 MG CAP PO SCH (20:31)
[2017-05-22] MEDS: Atorvastatin Calcium 40 MG TAB PO SCH (20:31)
[2017-05-23] MEDS: HYDROcodone/Acetaminophen 5/325 mg Tablet PO PRN (02:23)
[2017-05-23] MEDS: Sodium Chloride 0.9% 1,000 ML IV SCH ×3 (02:24→20:26)
[2017-05-23 05:04] LABS: Anion Gap 13 mmol/L (10-20); BUN (Urea Nitrogen) 21 mg/dL (8.4-25.7); Calc. Creatinine Clearance 94 mL/min (70-130); Calcium 8.8 mg/dL (7.8-10.44); Carbon Dioxide 25 mmol/L (23-31); Chloride 107 mmol/L (98-107); Estimated GFR-MDRD 80; Glucose 170 mg/dL (83-110); Potassium 3.5 mmol/L (3.5-5.1); Sodium 141 mmol/L (136-145)
[2017-05-23] MEDS: Docusate 100 MG CAP PO SCH ×2 (08:16→20:21)
[2017-05-23] MEDS: NIFEdipine XL 60 MG TAB PO SCH (08:16)
[2017-05-23] MEDS: Ezetimibe 10 MG TAB PO SCH (08:16)
[2017-05-23] MEDS: Aspirin 325 MG TAB PO SCH (08:16)
[2017-05-23] MEDS: Multivitamin W/ Minerals 1 TAB PO SCH (08:17)
[2017-05-23] MEDS: Allopurinol 300 MG TAB PO SCH (08:17)
--- NOTE | 2017-05-23 10:27 | PDOC.PN ---
- Subjective Encounter Start Date: 05/23/17 Encounter Start Time: 09:50 Subjective: No complaint expressed. -: Feels better. - Objective Resuscitation Status: Resuscitation Status FULL:Full Resuscitation Vital Signs & Weight: Vital Signs (12 hours) Temp Pulse Resp BP BP Pulse Ox 05/23/17 08:16 77 139/73 05/23/17 08:00 97.9 F 77 20 100 05/23/17 07:05 97.9 F 77 18 139/73 96 05/23/17 04:07 98.5 F 78 20 112/57 L 98 05/23/17 00:03 98.6 F 77 21 H 156/78 H 96 Weight Weight 207 lb 5 oz I&O: 05/22/17 05/23/17 05/24/17 06:59 06:59 06:59 Intake Total 170 3395 Output Total 2009 2439 Balance -310 955 Result Diagrams: 05/21/17 03:37 05/23/17 03:47 Additional Labs: Accuchecks 05/23/17 05/22/17 05/22/17 05:45 20:16 16:41 POC Glucose 153 H 171 H 148 H 05/22/17 10:58 POC Glucose 184 H Phys Exam - Physical Examination Constitutional: NAD HEENT: sclera anicteric Neck: no JVD Respiratory: clear to auscultation bilateral Cardiovascular: RRR Gastrointestinal: soft, non-tender (Cholecystostomy drain in place.) Musculoskeletal: no edema Psychiatric: A&O x 3 Dx/Plan (1) Acute acalculous cholecystitis Code(s): K81.0 - ACUTE CHOLECYSTITIS Status: Acute Plan: f/u with surgery. Comment: s/p cholecystostomy drain. (2) Acute kidney failure Status: Acute Comment: Resolved. Azotemia due to poor cardiac function. (3) NSTEMI (non-ST elevated myocardial infarction) Code(s): I21.4 - NON-ST ELEVATION (NSTEMI) MYOCARDIAL INFARCTION Status: Acute Plan: Awaiting lifevest. (4) Physical deconditioning Code(s): R53.81 - OTHER MALAISE Status: Acute Plan: To LTAC soon. (5) Chronic systolic heart failure Code(s): I50.22 - CHRONIC SYSTOLIC (CONGESTIVE) HEART FAILURE Status: Chronic Comment: stable/compensated. (6) Diabetes type 2, controlled Code(s): E11.9 - TYPE 2 DIABETES MELLITUS WITHOUT COMPLICATIONS Status: Chronic (7) Dyslipidemia Code(s): E78.5 - HYPERLIPIDEMIA, UNSPECIFIED Status: Chronic Plan: Continue statin. Comment: ROE satisfactory. - Plan -: Continue current therapy. -: F/u with consultants.. -: Awaiting L[facility].. * .
[2017-05-23] MEDS ORDERED: Potassium Chloride 20 MEQ TAB PO SCH (18:30)
--- NOTE | 2017-05-23 19:04 | PRG ---
DATE OF SERVICE: 05/23/2017 SERVICE: Pulmonary Medicine. INTERVAL HISTORY: The patient is doing really quite well from a respiratory standpoint. He denies a ny chest pain, shortness of breath, fevers or chills. Otherwise, he is returning to his usual state of health and has no specific complaints. He has no cough or sputum production. He was able to walk with physical therapy without much difficulty. PHYSICAL EXAMINATION: VITAL SIGNS: Afebrile, pulse 70, blood pressure 142/75, respirations 18, saturation 100% on room air . GENERAL: The patient is awake and alert, in no apparent distress. LUNGS: Decent air entry. There is no prolonged expiratory phase. Dependent crackles are present. HEART: Normal rate, regular. ABDOMEN: Soft, nontender, nondistended. Bowel sounds positive. MUSCULOSKELETAL: No cyanosis or clubbing. No pitting in the bilateral lower extremities. NEUROLOGIC: Grossly nonfocal. LABORATORY DATA: Basic metabolic profile is completely unremarkable. Potassium is 3.5. Bile fluid is growing Klebsiella, which is a pansensitive organism. Blood cultures x2 are unremarkable. ASSESSMENT: 1. Acalculous cholecystitis. 2. Severe sepsis, improving. 3. Acute kidney injury, resolved. PLAN: From my perspective, the patient is stable for transition out of the ICU to the floor. Pulmon latisha Critical Care will continue to follow while he remains in this location. His potassium will be r eplaced.
[2017-05-23] MEDS: Atorvastatin Calcium 40 MG TAB PO SCH (20:20)
[2017-05-23] MEDS: Temazepam 15 MG CAP PO SCH (20:21)
[2017-05-24 05:11] LABS: Anion Gap 11 mmol/L (10-20); BUN (Urea Nitrogen) 15 mg/dL (8.4-25.7); Calc. Creatinine Clearance 111 mL/min (70-130); Calcium 8.9 mg/dL (7.8-10.44); Carbon Dioxide 25 mmol/L (23-31); Chloride 107 mmol/L (98-107); Estimated GFR-MDRD Greater than 90; Glucose 145 mg/dL (83-110); Potassium 3.4 mmol/L (3.5-5.1); Sodium 140 mmol/L (136-145)
[2017-05-24] MEDS: Ezetimibe 10 MG TAB PO SCH (08:54)
[2017-05-24] MEDS: Aspirin 325 MG TAB PO SCH (08:54)
[2017-05-24] MEDS: Multivitamin W/ Minerals 1 TAB PO SCH (08:54)
[2017-05-24] MEDS: NIFEdipine XL 60 MG TAB PO SCH (08:54)
[2017-05-24] MEDS: Allopurinol 300 MG TAB PO SCH (08:56)
[2017-05-24] MEDS: Docusate 100 MG CAP PO SCH ×2 (08:56→20:57)
--- NOTE | 2017-05-24 11:53 | PDOC.PN ---
- Subjective Encounter Start Date: 05/24/17 Encounter Start Time: 11:00 -: Expresses no specific complaint. - Objective Resuscitation Status: Resuscitation Status FULL:Full Resuscitation Vital Signs & Weight: Vital Signs (12 hours) Temp Pulse Resp BP BP Pulse Ox 05/24/17 08:57 98 05/24/17 08:54 80 164/67 H 05/24/17 08:00 99.0 F 80 18 97 05/24/17 07:47 99.0 F 76 16 164/64 H 99 05/24/17 04:07 97.6 F 76 19 149/61 H 97 05/24/17 02:47 97 Weight Weight 210 lb 1 oz I&O: 05/23/17 05/24/17 05/25/17 06:59 06:59 06:59 Intake Total 3395 3320 Output Total 2440 2060 Balance 955 1260 Result Diagrams: 05/21/17 03:37 05/24/17 03:58 Additional Labs: Accuchecks 05/24/17 05/23/17 05/23/17 05:36 20:12 16:52 POC Glucose 135 H 164 H 153 H Phys Exam - Physical Examination Constitutional: NAD HEENT: sclera anicteric Neck: no JVD Respiratory: clear to auscultation bilateral Cardiovascular: RRR Gastrointestinal: soft (Cholecystostomy tube in place..) Musculoskeletal: no edema Neurological: moves all 4 limbs Psychiatric: A&O x 3 Dx/Plan (1) Acute acalculous cholecystitis Code(s): K81.0 - ACUTE CHOLECYSTITIS Status: Acute Comment: s/p cholecystostomy drain. (2) Acute kidney failure Status: Acute Comment: Resolved. (3) NSTEMI (non-ST elevated myocardial infarction) Code(s): I21.4 - NON-ST ELEVATION (NSTEMI) MYOCARDIAL INFARCTION Status: Acute (4) Physical deconditioning Code(s): R53.81 - OTHER MALAISE Status: Acute (5) Chronic systolic heart failure Code(s): I50.22 - CHRONIC SYSTOLIC (CONGESTIVE) HEART FAILURE Status: Chronic Comment: stable/compensated. Life vest in place ( for cardiomyopathy) (6) Diabetes type 2, controlled Code(s): E11.9 - TYPE 2 DIABETES MELLITUS WITHOUT COMPLICATIONS Status: Chronic (7) Dyslipidemia Code(s): E78.5 - HYPERLIPIDEMIA, UNSPECIFIED Status: Chronic Comment: BS satisfactory. - Plan -: To go to LTAC. * .
--- NOTE | 2017-05-24 14:18 | PRG ---
DATE OF SERVICE: 05/24/2017 SERVICE: Pulmonary Medicine. INTERVAL HISTORY: The patient is doing fine from a cardiovascular and respiratory standpoint. He de nies any current chest pain, fevers, chills, nausea or vomiting. He is looking forward to going to [facility] tomorrow. Otherwise, he has no complaints. PHYSICAL EXAMINATION: VITAL SIGNS: Afebrile, pulse 85, blood pressure 164/67, respirations 20, saturation 100% on room air . GENERAL: The patient is awake, alert, no apparent distress. LUNGS: Excellent air entry with no prolonged expiratory phase, wheezing, rhonchi or crackles. HEART: Normal rate and regular. ABDOMEN: Soft, nontender, and nondistended. Bowel sounds positive. MUSCULOSKELETAL: No cyanosis or clubbing. There is no pitting in the bilateral lower extremities. NEUROLOGIC: Grossly nonfocal. LABORATORY DATA: Potassium 3.4. Otherwise basic metabolic profile is unremarkable. Blood sugars ra nged from 153-247. Body fluid culture is growing Klebsiella which is pansensitive. Blood cultures x 2 are negative. ASSESSMENT: 1. Acalculous cholecystitis. 2. Severe sepsis secondary to Klebsiella. 3. Acute kidney injury, resolved. PLAN: The patient remains stable for transition out of the ICU to the telemetry floor. Pulmonary or Critical Care will continue to follow while he remains in this location. Potassium will once again be replaced.
[2017-05-24] MEDS: Potassium Chloride 20 MEQ TAB PO SCH ×2 (15:24→20:56)
[2017-05-24] MEDS: Atorvastatin Calcium 40 MG TAB PO SCH (20:56)
[2017-05-24] MEDS: Temazepam 15 MG CAP PO SCH (20:57)
[2017-05-25 05:02] LABS: Anion Gap 12 mmol/L (10-20); BUN (Urea Nitrogen) 11 mg/dL (8.4-25.7); Calc. Creatinine Clearance 106 mL/min (70-130); Calcium 9.2 mg/dL (7.8-10.44); Carbon Dioxide 28 mmol/L (23-31); Chloride 104 mmol/L (98-107); Estimated GFR-MDRD 90; Glucose 157 mg/dL (83-110); Potassium 3.9 mmol/L (3.5-5.1); Sodium 140 mmol/L (136-145)
--- NOTE | 2017-05-25 08:19 | PRG ---
DATE OF SERVICE: 05/25/2017 The patient is feeling better and says he is going to [facility] today. PHYSICAL EXAMINATION: VITAL SIGNS: Temperature 97.6, pulse 80, respirations 18, O2 sat 97% on room air. HEENT: Unremarkable. NECK: No JVD. LUNGS: Clear. CARDIAC: S1 and S2 regular. He is wearing a LifeVest. He has a cholecystotomy drain from his right upper quadrant which is draining bile. EXTREMITIES: No edema. LABORATORY DATA: Sodium 140, potassium 3.9, chloride 104, CO2 28, BUN 11, creatinine 0.8, glucose 15 7. ASSESSMENT: 1. Acalculous cholecystitis. 2. Sepsis. 3. Acute kidney injury which is resolving. PLAN: The patient can likely be transitioned to skilled. I am not sure about the duration of IV ant ibiotics - because of the question for general surgery. Down the line, he will need to have a preet cystectomy. If he is not going to skilled and I think he will be transferred out to the [facility]
[2017-05-25] MEDS: Allopurinol 300 MG TAB PO SCH (08:57)
[2017-05-25] MEDS: Ezetimibe 10 MG TAB PO SCH (08:58)
[2017-05-25] MEDS: Aspirin 325 MG TAB PO SCH (08:58)
[2017-05-25] MEDS: Multivitamin W/ Minerals 1 TAB PO SCH (08:58)
[2017-05-25] MEDS: NIFEdipine XL 60 MG TAB PO SCH (08:58)
[2017-05-25] MEDS: Docusate 100 MG CAP PO SCH ×2 (08:58→20:09)
[2017-05-25] MEDS ORDERED: Acetaminophen/Codeine 30-300mg Tablet PO PRN ×2 (09:14)
[2017-05-25] MEDS ORDERED: traMADol HCl 50 MG TAB PO PRN (09:15)
[2017-05-25] MEDS ORDERED: HYDROcodone/Acetaminophen 5/325 mg Tablet PO PRN (09:15)
[2017-05-25] MEDS ORDERED: Carvedilol 3.125 MG TAB PO SCH (11:00)
[2017-05-25] MEDS ORDERED: Furosemide 40 MG TAB PO SCH (11:30)
[2017-05-25] MEDS: HumaLOG 300 UNITS/3 ML VIAL SC PRN (12:14)
[2017-05-25 13:33] VITALS: BMI 28.5
--- NOTE | 2017-05-25 15:16 | PDOC.PN ---
- Subjective Encounter Start Date: 05/25/17 Encounter Start Time: 12:00 John is seen today, on VEST and Cholostomt tube draining well. Pt is Waiting on SNF placement. - Objective Resuscitation Status: Resuscitation Status FULL:Full Resuscitation MAR Reviewed: Yes Vital Signs & Weight: Vital Signs (12 hours) Temp Pulse Pulse Pulse Resp BP BP 05/25/17 09:14 82 77 144/76 H 149/83 H 05/25/17 08:58 80 05/25/17 08:00 97.6 F 80 18 05/25/17 07:38 97.6 F 80 18 05/25/17 05:23 05/25/17 04:00 98 F 80 14 BP BP Pulse Ox Pulse Ox Pulse Ox 05/25/17 09:14 96 96 05/25/17 08:58 05/25/17 08:00 96 05/25/17 07:38 151/84 H 97 05/25/17 05:23 96 05/25/17 04:00 119/59 L 96 Weight Admit Weight 199 lb Weight 210 lb 1 oz I&O: 05/24/17 05/25/17 05/26/17 06:59 06:59 06:59 Intake Total 3320 1380 Output Total 2060 4075 Balance 1260 -2695 Result Diagrams: 05/21/17 03:37 05/25/17 04:15 Additional Labs: Accuchecks 05/25/17 05/25/17 05/24/17 11:18 05:56 20:50 POC Glucose 194 H 139 H 124 H 05/24/17 16:18 POC Glucose 156 H Radiology Reviewed by me: Yes Phys Exam - Physical Examination HEENT: PERRLA, moist MMs Neck: no nodes, no JVD Respiratory: no wheezing, no rales Cardiovascular: RRR, no significant murmur Gastrointestinal: soft, non-tender Musculoskeletal: no edema, pulses present Neurological: non-focal, normal sensation Dx/Plan (1) Acute acalculous cholecystitis Code(s): K81.0 - ACUTE CHOLECYSTITIS Status: Acute Comment: s/p cholecystostomy drain. (2) Acute kidney failure Status: Acute Comment: Resolved. (3) NSTEMI (non-ST elevated myocardial infarction) Code(s): I21.4 - NON-ST ELEVATION (NSTEMI) MYOCARDIAL INFARCTION Status: Acute Comment: Resolved, pt is on Aspirin/ BB. (4) Physical deconditioning Code(s): R53.81 - OTHER MALAISE Status: Acute Comment: Planned for SNF [facility] Facility which will take pt with Life VEST (5) Sepsis with acute organ dysfunction Code(s): A41.9 - SEPSIS, UNSPECIFIED ORGANISM; R65.20 - SEVERE SEPSIS WITHOUT SEPTIC SHOCK Status: Acute Comment: Resolved. (6) Chronic systolic heart failure Code(s): I50.22 - CHRONIC SYSTOLIC (CONGESTIVE) HEART FAILURE Status: Chronic Comment: stable/compensated. Life vest in place ( for cardiomyopathy) (7) Diabetes type 2, controlled Code(s): E11.9 - TYPE 2 DIABETES MELLITUS WITHOUT COMPLICATIONS Status: Chronic Comment: Well controlled. Continue to Monitor While in Hospital. keep BG 140-180 (8) NSVT (nonsustained ventricular tachycardia) Code(s): I47.2 - VENTRICULAR TACHYCARDIA Status: Resolved - Plan cont current plan of care, PT/OT, social service worker, incentive spirometry, DVT proph w/SCDs * . - Discharge Day Encounter end time: 12:35 Review of Systems - Review of Systems Eyes: negative: Pain, Vision Change, Conjunctivae Inflammation, Eyelid Inflammation, Redness, Other ENT: negative: Ear Pain, Ear Discharge, Nose Pain, Nose Discharge, Nose Congestion, Mouth Pain, Mouth Swelling, Throat Pain, Throat Swelling, Other Respiratory: negative: Cough, Dry, Shortness of Breath, Hemoptysis, SOB with Excertion, Pleuritic Pain, Sputum, Wheezing Cardiovascular: negative: chest pain, palpitations, orthopnea, paroxysmal nocturnal dyspnea, edema, light headedness, other Gastrointestinal: negative: Nausea, Vomiting, Abdominal Pain, Diarrhea, Constipation, Melena, Hematochezia, Other Genitourinary: negative: Dysuria, Frequency, Incontinence, Hematuria, Retention , Other Musculoskeletal: negative: Neck Pain, Shoulder Pain, Arm Pain, Back Pain, Hand Pain, Leg Pain, Foot Pain, Other - Medications/Allergies Allergies/Adverse Reactions: Allergies Allergy/AdvReac Type Severity Reaction Status Date / Time Penicillins Allergy Intermediate Swollen Verified 05/14/17 22:54 Lips Medications: Current Medications Acetaminophen (Tylenol) 650 mg PO Q4H PRN PRN Reason: Headache/Fever or Pain Last Admin: 05/15/17 21:08 Dose: 650 mg Acetaminophen/Codeine Phosphate (Tylenol #3) 1 tab PO Q4H PRN PRN Reason: Mild Pain (1-3) Acetaminophen/Codeine Phosphate (Tylenol #3) 2 tab PO Q4H PRN PRN Reason: Moderate Pain (4-6) Hydrocodone Bitart/Acetaminophen ([place] 5/325) 1 tab PO Q4H PRN PRN Reason: Moderate Pain (4-6) Al Hydroxide/Mg Hydroxide (Maalox) 15 ml PO Q4H PRN PRN Reason: Heartburn or Indigestion Allopurinol (Zyloprim) 300 mg PO DAILY [facility] Last Admin: 05/25/17 08:57 Dose: 300 mg Artificial Tears (Tears Naturale) 0 drop EA EYE PRN PRN PRN Reason: Dry Eyes Aspirin (Aspirin) 325 mg PO DAILY [facility] Last Admin: 05/25/17 08:58 Dose: 325 mg Atorvastatin Calcium (Lipitor) 80 mg PO [facility] Last Admin: 05/24/17 20:56 Dose: 80 mg Benzonatate (Tessalon) 100 mg PO Q4H PRN PRN Reason: Cough Carvedilol (Coreg) 6.25 mg PO BID-[facility] Dextrose/Water (Dextrose 50%) 25 gm SLOW IVP PRN PRN PRN Reason: Hypoglycemia Docusate Sodium (Colace) 100 mg PO BID [facility] Last Admin: 05/25/17 08:58 Dose: 100 mg Ezetimibe (Zetia) 10 mg PO DAILY [facility] Last Admin: 05/25/17 08:58 Dose: 10 mg Furosemide (Lasix) 40 mg PO DAILY-[facility] Glucagon (Glucagon) 1 mg IM PRN PRN PRN Reason: Hypoglycemia Guaifenesin (Robitussin Sf) 200 mg PO Q4H PRN PRN Reason: Cough Hydralazine HCl (Apresoline) 10 mg SLOW IVP Q4H PRN PRN Reason: Systolic BP > 180 Dextrose/Water (D5w) 1,000 mls @ 0 mls/hr IV .Q0M PRN; As Directed PRN Reason: Hypoglycemia Levofloxacin 500 mg/ Device 100 mls @ 100 mls/hr IVPB Q24HR [facility] Last Admin: 05/25/17 09:02 Dose: 100 mls Insulin Human Lispro (Humalog) 0 units SC .MODERATE SLIDING SC PRN PRN Reason: Moderate Correctional Scale Last Admin: 05/25/17 12:14 Dose: 2 unit Insulin Human Lispro (Humalog) 0 units SC .BEDTIME SLIDING SC PRN PRN Reason: Bedtime Correctional Scale Iron/Minerals/Multivitamins (Theragran M) 1 tab PO DAILY [facility] Last Admin: 05/25/17 08:58 Dose: 1 tab Loperamide HCl (Imodium) 2 mg PO PRN PRN PRN Reason: Diarrhea/Loose Stools Loratadine (Claritin) 10 mg PO DAILYPRN PRN PRN Reason: Sinus Symptoms Magnesium Hydroxide (Milk Of Magnesium) 30 ml PO DAILYPRN PRN PRN Reason: Constipation Mineral Oil/White Petrolatum (Eucerin Cream) 0 gm TOP BIDPRN PRN PRN Reason: Dry Skin Morphine Sulfate (Morphine) 2 mg SLOW IVP Q2H PRN PRN Reason: Chest Pain Last Admin: 05/18/17 02:31 Dose: 2 mg Nifedipine (Procardia Xl) 60 mg PO DAILY [facility] Last Admin: 05/25/17 08:58 Dose: 60 mg Nitroglycerin (Nitrostat) 0.4 mg SL Q5MIN PRN PRN Reason: Chest Pain Ondansetron HCl (Zofran Odt) 4 mg PO Q6H PRN PRN Reason: Nausea/Vomiting Last Admin: 05/15/17 08:03 Dose: 4 mg Ondansetron HCl (Zofran) 4 mg IVP Q6H PRN PRN Reason: Nausea/Vomiting Pantoprazole Sodium (Protonix) 40 mg PO BID [facility] Last Admin: 05/25/17 08:59 Dose: 40 mg Ranolazine (Ranexa) 1,000 mg PO BID [facility] Last Admin: 05/25/17 08:59 Dose: 1,000 mg Sodium Chloride ([place] Nasal [place] 0.65%) 0 ml EA NARE QIDPRN PRN PRN Reason: Nasal Congestion Sodium Chloride (Flush - Normal Saline) 10 ml IVF Q12HR [facility] Last Admin: 05/25/17 08:59 Dose: 10 ml Sodium Chloride (Flush - Normal Saline) 10 ml IVF PRN PRN PRN Reason: Saline Flush Temazepam (Restoril) 30 mg PO HS [facility] Tramadol HCl (Ultram) 50 mg PO Q6H PRN PRN Reason: Moderate Pain (4-6)
--- NOTE | 2017-05-25 15:28 | PDOC.CTH ---
Cardiology Progress Note - Subjective EP progress note Patient has done well over the weekend and is without cardiac complaints at this time. He had the GB drain placed last week and has improved substaintially since then. ROS: 8 point ROS conducted and is negative - Objective Vital Signs Temp Pulse Pulse Pulse Resp BP BP 05/25/17 09:14 82 77 144/76 H 149/83 H 05/25/17 08:58 80 05/25/17 08:00 97.6 F 80 18 05/25/17 07:38 97.6 F 80 18 05/25/17 05:23 05/25/17 04:00 98 F 80 14 BP BP Pulse Ox Pulse Ox Pulse Ox 05/25/17 09:14 96 96 05/25/17 08:58 05/25/17 08:00 96 05/25/17 07:38 151/84 H 97 05/25/17 05:23 96 05/25/17 04:00 119/59 L 96 Admit Weight 199 lb Weight 210 lb 1 oz 05/24/17 05/25/17 05/26/17 06:59 06:59 06:59 Intake Total 3320 1380 Output Total 2060 4075 Balance 1260 -2695 - Physical Examination General/Neuro: alert & oriented x3, NAD Neck: carotid US brisk, no JVD present Lungs: CTA, unlabored respirations Heart: PMI normal, RRR Abdomen: no HSM, NT/ND - Telemetry Telemetry Rhythm: NSR - Labs Result Diagrams: 05/21/17 03:37 05/25/17 04:15 Troponin/CKMB CK-MB (CK-2) 2.3 ng/mL (0-6.6) 05/14/17 17:00 Troponin I 0.204 ng/mL (< 0.028) H 05/17/17 04:50 - Assessment/Plan 1. Ischemic cardiomyopathy EF 10-15%, Lifevest in place 2. NSTEMI, managed by cardiology Patient is anticipating discharge to rehab in the near future. Placement is proving challenging as many facilities will not accept him with a lifevest in place. Patient will follow up with [facility] as an outpatient. He will need a repeat 2D echo in 40 days at which point we can discuss ICD placement.
[2017-05-25] MEDS: Carvedilol 6.25 MG TAB PO SCH (17:42)
[2017-05-25] MEDS: Atorvastatin Calcium 40 MG TAB PO SCH (20:08)
[2017-05-25] MEDS ORDERED: Temazepam 15 MG CAP PO SCH (21:00)
[2017-05-26 05:29] LABS: Anion Gap 11 mmol/L (10-20); BUN (Urea Nitrogen) 12 mg/dL (8.4-25.7); Calc. Creatinine Clearance 106 mL/min (70-130); Calcium 9.2 mg/dL (7.8-10.44); Carbon Dioxide 29 mmol/L (23-31); Chloride 101 mmol/L (98-107); Estimated GFR-MDRD 90; Glucose 138 mg/dL (83-110); Potassium 3.4 mmol/L (3.5-5.1); Sodium 138 mmol/L (136-145)
[2017-05-26] MEDS ORDERED: Furosemide 40 MG TAB PO SCH (07:30)
[2017-05-26] MEDS ORDERED: Potassium Chloride 10 MEQ TAB PO SCH (08:00)
[2017-05-26] MEDS: Carvedilol 6.25 MG TAB PO SCH ×2 (08:59→16:14)
[2017-05-26] MEDS: Docusate 100 MG CAP PO SCH (09:00)
[2017-05-26] MEDS: Ezetimibe 10 MG TAB PO SCH (09:02)
[2017-05-26] MEDS: Multivitamin W/ Minerals 1 TAB PO SCH (09:02)
[2017-05-26] MEDS: Aspirin 325 MG TAB PO SCH (09:02)
[2017-05-26] MEDS: NIFEdipine XL 60 MG TAB PO SCH (09:03)
[2017-05-26] MEDS: Allopurinol 300 MG TAB PO SCH (09:06)
--- NOTE | 2017-05-26 09:54 | PRG ---
DATE OF SERVICE: 05/26/2017 The patient is doing well. He is awaiting placement in a [facility] facility. Apparently we a re having trouble finding a place because he is requiring a LifeVest. Overall, he feels better. He is starting to eat well. He is starting to ambulate. PHYSICAL EXAMINATION: VITAL SIGNS: His temperature is 97.5, pulse 75, respirations 20, O2 saturation 97%, blood pressure 1 64/67. HEENT: Unremarkable. NECK: No JVD. LUNGS: Clear. CARDIAC: S1 and S2 regular. ABDOMEN: Cholecystotomy drain is noted with bile. Abdomen is soft, nontender. EXTREMITIES: No edema. LABORATORY DATA: Sodium 138, potassium 3.4, chloride 101, CO2 of 29, BUN 12, creatinine 0.8, glucose 138. ASSESSMENT: Acalculous cholecystitis with significant improvement. RECOMMENDATIONS: He is probably stable enough to undergo laparoscopic cholecystectomy at any time. This is left to the disposition of the surgeon. He could also be converted over to oral antibiotics indefinitely, sent to the floor.
[2017-05-26] MEDS: HumaLOG 300 UNITS/3 ML VIAL SC PRN (11:20)
[2017-05-26 11:49] VITALS: TEMP 98
[2017-05-26 16:15] VITALS: BP 164/67
--- NOTE | 2017-05-27 09:38 | DIS ---
DATE OF ADMISSION: 05/14/2017 DATE OF DISCHARGE: 05/26/2017 ADMITTING DIAGNOSIS: Acute abdominal pain. DISCHARGE DIAGNOSIS: Acute acalculous cholecystitis with status post percutaneous cholecystostomy. SECONDARY DIAGNOSES: 1. Chronic congestive heart failure with worsening systolic heart failure, status post LifeVest plac ement. 2. Hypotension. 3. [id number] myocardial infarction. 4. Hyponatremia. 5. Type 2 diabetes mellitus. 6. Hyperlipidemia. CONSULTANTS: Involved in the care is, 1. Dr. Gerard Pan from General Surgery. 2. Dr. Clarence Cristobal. 3. Dr. Christine from Electrophysiology. 4. Dr. Donnie Perry from Cardiology. PROCEDURES DONE DURING: This admission are: 1. Percutaneous cholecystostomy for acalculous cholecystitis. 2. He has a LifeVest placement. 3. Cardiac catheterization. HISTORY OF PRESENT ILLNESS AND HOSPITAL COURSE: In brief, this is a 72-year-old white male with a kn own history of severe coronary artery disease who presented to the hospital with epigastric abdominal pain associated with nausea. The patient was seen by General Surgery after a complete evaluation by Cardiology where patient was a poor candidate for anesthesia or any kind of minor surgeries. The nathanael sutton was seen by General Surgery following a HIDA scan, it was noted that the patient had acalculous cholecystitis and is a poor candidate for laparoscopic cholecystectomy, so a percutaneous cholecysto stomy was suggested and the patient tolerated the procedure well and the patient was able to get his gallbladder distention corrected. The patient had a drain, was draining bile properly with no obstru ction. The patient was seen by Cardiology. Dr. Donnie Perry did a thorough evaluation following a cardiac catheterization which showed a poor ejection fraction with some blockages in bypass arterie s and he suggested the patient to be on the LifeVest and Dr. Christine was also consulted who agreed with the LifeVest and the plan to follow up with the patient in 40 days for evaluation of the ICD. The nathanael sutton had low blood pressures during this admission, so his Coreg was reduced down to 6.25 and fallon holliday was on high dose of lisinopril at 40 mg twice a day which was held because of the low blood pressur es and then restarted at 40 mg daily at the time of discharge. The patient was very weak and he was needing rehab placement, so there was difficulty getting a rehab placement with a LifeVest. So, yousuf baldwin, the patient was able to go to [facility] and was accepted for rehab with the LifeVes t. Patient was discharged home in stable condition. PHYSICAL EXAMINATION: On date of discharge: VITAL SIGNS: Blood pressures are 164/67, heart rate is 88, respiratory rate 18, saturation 98%. GENERAL: The patient is moderately built and moderately nourished, does not appear to be in acute di stress. CARDIOVASCULAR: S1, S2 normal. No murmurs, rubs or gallops. LUNGS: Bilateral air entry was equal. No wheezing, no crackles. ABDOMEN: Soft, nontender. No guarding or rebound tenderness. Patient had a cholecystostomy drain d raining bilious liquid. LifeVest was intact along with the monitor. HOME MEDICATIONS: Lisinopril 40 mg p.o. daily, Lasix 40 mg p.o. daily., isosorbide mononitrate 60 mg p.o. daily, metformin 1000 mg p.o. b.i.d., allopurinol 300 mg p.o. daily, atorvastatin 80 mg p.o. da april, ezetimibe 10 mg p.o. daily, ranolazine, Ranexa 1000 mg p.o. b.i.d., temazepam 30 mg p.o. at be dtime, and Coreg 6.25 mg p.o. b.i.d. DISCHARGE INSTRUCTIONS: Continue activity as tolerated. Advised to follow up with primary care phys ician in 1-2 weeks. Advised to follow up with Cardiology in 2 weeks. Advised to follow up with Elec trophysiology in 4-6 weeks. Advised to return back to the ER for any further chest pains. Advised to follow a cardiac diet. I spent 35 minutes of this patient on the day of discharge.
--- NOTE | 2017-06-06 16:57 | EKG ---
Test Reason : CHEST PAIN Blood Pressure : / mmHG Vent. Rate : 055 BPM Atrial Rate : 063 BPM P-R Int : 000 ms QRS Dur : 116 ms QT Int : 452 ms P-R-T Axes : 011 -03 241 degrees QTc Int : 432 ms Sinus rhythm with 2nd degree A-V block (Mobitz I) Inferior infarct , age undetermined Abnormal ECG Confirmed by TIFFANY BOLES D.O. ([id number]), editor in chief newspaper LOUANN BURK ([id number]) on 06/06/2017 4:57:14 PM Referred By: RAMANA Confirmed By:TIFFANY BOLES D.O.
== END 2017-05-26 17:21 | DRG 280 ==
LOC: ERS 16:43 → 2NO 22:13 → IMCU/EMU 05-17 07:17
PROVIDERS: ADMIT Internal Medicine; ATTEND Internal Medicine
PROC: 0F9430Z Drainage of Gallbladder with Drainage Device, Percutaneous Approach (ICD-10-PCS; principal; 2017-05-14)
PROC: 4A023N7 Measurement of Cardiac Sampling and Pressure, Left Heart, Percutaneous Approach (ICD-10-PCS; 2017-05-15)
PROC: B2181ZZ Fluoroscopy of Left Internal Mammary Bypass Graft using Low Osmolar Contrast (ICD-10-PCS; 2017-05-15)
PROC: B2151ZZ Fluoroscopy of Left Heart using Low Osmolar Contrast (ICD-10-PCS; 2017-05-15)
PROC: B2111ZZ Fluoroscopy of Multiple Coronary Arteries using Low Osmolar Contrast (ICD-10-PCS; 2017-05-15)
PROC: B2131ZZ Fluoroscopy of Multiple Coronary Artery Bypass Grafts using Low Osmolar Contrast (ICD-10-PCS; 2017-05-15)
DX: I21.4 Non-ST elevation (NSTEMI) myocardial infarction (principal); A41.89 Other specified sepsis; N17.9 Acute kidney failure, unspecified; I47.2 Ventricular tachycardia; K81.0 Acute cholecystitis; R65.20 Severe sepsis without septic shock; I25.729 Atherosclerosis of autologous artery coronary artery bypass graft(s) with unspecified angina pectoris; I50.22 Chronic systolic (congestive) heart failure; E87.1 Hypo-osmolality and hyponatremia; J98.11 Atelectasis; I11.0 Hypertensive heart disease with heart failure; J44.9 Chronic obstructive pulmonary disease, unspecified; E11.9 Type 2 diabetes mellitus without complications; Z95.1 Presence of aortocoronary bypass graft; Z79.84 Long term (current) use of oral hypoglycemic drugs; I25.2 Old myocardial infarction; E78.5 Hyperlipidemia, unspecified; Z95.5 Presence of coronary angioplasty implant and graft; Z79.82 Long term (current) use of aspirin; I25.5 Ischemic cardiomyopathy; I95.2 Hypotension due to drugs; T46.5X5A Adverse effect of other antihypertensive drugs, initial encounter; Y92.538 Other ambulatory health services establishments as the place of occurrence of the external cause; I34.0 Nonrheumatic mitral (valve) insufficiency; Z88.0 Allergy status to penicillin; E78.00 Pure hypercholesterolemia, unspecified; M10.9 Gout, unspecified; R09.02 Hypoxemia; I25.119 Atherosclerotic heart disease of native coronary artery with unspecified angina pectoris
CPT/HCPCS: 36415; 36416; 49020; 71045; 71275; 74176; 76700; 77002; 78226; 80048; 80053; 80061; 80076; 81001; 82533; 82553; 82565; 82805; 83690; 84484; 85014; 85018; 85025; 85049; 85347; 85379; 85610; 85730; 87040; 87070; 87077; 87186; 87205; 93005; 93010; 93458; 93798; 94760; 96372; 96374; 96375; 96376; 99152; 99153; J2270; A4216; A9537; C1729; C1769; G8978-GP-CL; G8979-GP-CJ; G8987-GO-CM; G8988-GO-CK; J0360; J1644; J1650; J1940; J1956; J2001; J2250; J2405; J2720; J3010; Q0162

== ENCOUNTER 2021-09-09 08:30 | Outpatient (CLI) | payer MEDICARE, BC ==
[~2021-09-09 08:30] MED LIST changes: -ISOVUE-370 76%-LOCM 1 ML ONE; +Iopamidol 300 61% 50 ML VIAL FS ONE
== END 2021-09-09 08:31 | disposition home or self-care (01) ==
LOC: RAD 08:30
PROVIDERS: ATTEND Surgery
DX: K81.9 Cholecystitis, unspecified (principal)
CPT/HCPCS: 47531; Q9967

== ENCOUNTER 2021-09-17 00:39 | Inpatient (IN) | payer MEDICARE, BC ==
[2021-09-17 01:14] LABS: #Eosinphils 0.1 thou/uL (0.0-0.7); #Lymphocytes 2.2 thou/uL (1.20-3.40); #Monocytes 0.6 thou/uL (0.11-0.59); #Neutrophils 9.2 thou/uL (1.40-6.50); %Basophils 0.2 % (0.0-1.0); %Eosinophils 1.2 % (0.0-10.0); %Monocytes 4.6 % (0.0-10.0); Hemoglobin 15.4 g/dL (14.0-18.0); Mean Corpuscular HGB CONC 33.6 g/dL (32.0-36.0); Mean Corpuscular Hemoglobin 32.6 pg (27.0-31.0); Mean Platelet Volume 7.6 fL (7.4-10.4); Platelet Count 165 thou/uL (130-400); Red Blood Cell (RBC) Count 4.73 mill/uL (4.70-6.10); White Blood Cell (WBC) Count 12.1 thou/uL (4.8-10.8)
[2021-09-17 01:38] LABS: ALT (SGPT) 19 U/L (8-55); AST (SGOT) 17 U/L (5-34); Albumin 3.8 g/dL (3.4-4.8); Alkaline Phosphatase 47 U/L (40-110); Anion Gap 16 mmol/L (10-20); BUN (Urea Nitrogen) 22 mg/dL (8.4-25.7); Bilirubin, Total 0.7 mg/dL (0.2-1.2); Calc. Creatinine Clearance 0 mL/min (70-130); Calcium 9.3 mg/dL (7.8-10.44); Carbon Dioxide 27 mmol/L (23-31); Chloride 101 mmol/L (98-107); Glucose 161 mg/dL (83-110); Lipase 50 U/L (8-78); Potassium 4.6 mmol/L (3.5-5.1); Protein, Total 6.8 g/dL (5.8-8.1); Sodium 139 mmol/L (136-145)
[2021-09-17 02:47] LABS: Magnesium 1.7 mg/dL (1.6-2.6)
[2021-09-17] MEDS ORDERED: Acetaminophen 325 MG TAB ONE (03:50)
[2021-09-17] MEDS ORDERED: DOBUTamine 500 mg/250 ml 250 ML ONE (04:18)
[2021-09-17] MEDS ORDERED: Dextrose 5 % And 0.9 % NaCl 1,000 ML IV SCH (04:30)
[2021-09-17] MEDS ORDERED: Morphine 4 MG/ML VIAL ONE (05:40)
[2021-09-17] MEDS ORDERED: Ondansetron PF 4 MG/2 ML Vial ONE (05:40)
[2021-09-17 06:04] LABS: Bacteria/HPF None Seen HPF (None Seen); Bilirubin Negative (Negative); Blood, Urine Negative (Negative); Clarity Clear (Clear); Glucose, Urine (Dipstick) Greater than 1000 mg/dL (Negative); Ketone, Urine Negative (Negative); Leukocyte 25 Leu/uL (Negative); Nitrite Negative (Negative); Protein, Urine (Dipstick) Negative (Neg-Trace); RBC/HPF 0-3 HPF (0-3); Specific Gravity, Urine 1.048 (1.002-1.036); Squamous Epithelial None Seen HPF (0-3); Urobilinogen Normal mg/dL (Less than 2)
[2021-09-17 08:13] LABS: SARS-CoV-2 NAA Rapid Test Not Detected (NotDetected)
[2021-09-17] MEDS ORDERED: HumaLOG 300 UNITS/3 ML VIAL SC PRN ×2 (09:34)
[2021-09-17] MEDS ORDERED: Dextrose 5% in Water 1,000 ML IV PRN (09:34)
[2021-09-17] MEDS ORDERED: Ondansetron PF 4 MG/2 ML Vial IVP PRN (09:34)
[2021-09-17] MEDS ORDERED: Ondansetron ODT 4 MG TAB PO PRN (09:34)
[2021-09-17] MEDS ORDERED: Dextrose 50% Abboject 50 ML SYRINGE SLOW IVP PRN (09:34)
[2021-09-17] MEDS ORDERED: Pantoprazole 40 MG VIAL IVP SCH ×2 (11:00)
[2021-09-17] MEDS: Cefepime 2 GM in Sodium Chloride 0.9% 100 ML IVPB SCH ×2 (11:26→20:58)
[2021-09-17 11:47] VITALS: BMI 25.2
[2021-09-17] MEDS: Sodium Chloride 0.9% 1,000 ML IV SCH (12:20)
[2021-09-17] MEDS ORDERED: Iopamidol-370 76% 500 ML 1 ML ONE (13:04)
[2021-09-17] MEDS ORDERED: DOBUTamine 500 mg/250 ml 250 ML IVPB PRN (14:08)
[2021-09-17] MEDS: metroNIDAZOLE 500 MG in Premix Bag 1 BAG IVPB SCH (15:02)
[2021-09-17] MEDS ORDERED: Sodium Bicarbonate 2.5 MEQ/5 ML VIAL ONE (16:32)
[2021-09-17] MEDS: Morphine 2 MG/ML VIAL SLOW IVP PRN (18:04)
[2021-09-17] MEDS: Pantoprazole 40 MG VIAL IVP SCH (20:55)
[2021-09-17] MEDS: Vancomycin 1 GM in Premix Bag 1 BAG IVPB SCH (20:58)
[2021-09-17] MEDS: Acetaminophen 500 MG TAB PO PRN (20:59)
[2021-09-17] MEDS ORDERED: Vancomycin HCl 1 GM in Sodium Chloride 0.9% 250 ML 300 ML IVPB SCH (21:00)
[2021-09-17 21:14] LABS: BF Color Black; Clarity Cloudy/Turbid (Clear); Tube # EDTA
[2021-09-17 22:28] LABS: Hemoglobin 14.6 g/dL (14.0-18.0); Mean Corpuscular HGB CONC 32.7 g/dL (32.0-36.0); Mean Corpuscular Hemoglobin 31.6 pg (27.0-31.0); Mean Corpuscular Volume 96.6 fL (78.0-98.0); Mean Platelet Volume 7.7 fL (7.4-10.4); Platelet Count 140 thou/uL (130-400); RBC Distribution Width 14.4 % (11.5-14.5); Red Blood Cell (RBC) Count 4.62 mill/uL (4.70-6.10); White Blood Cell (WBC) Count 12.6 thou/uL (4.8-10.8)
[2021-09-17] MEDS ORDERED: Sodium Chloride 0.9% 1,000 ML IV SCH (22:30)
[2021-09-17 22:40] LABS: Band 14 % (5-11); Lymphocytes 5 % (21-51); MDiff Complete? YES; Monocytes 14 % (0-10); Neutrophil 67 % (42-75); Platelet Morphology Comment Appears Adequate; RBC Morphology Normal
[2021-09-17] MEDS: Norepinephrine 8 MG/0.9% NS 250 ML IVPB SCH (22:52)
[2021-09-18] MEDS: Sodium Chloride 0.9% 1,000 ML IV SCH ×3 (00:13→21:21)
[2021-09-18] MEDS: metroNIDAZOLE 500 MG in Premix Bag 1 BAG IVPB SCH ×4 (00:13→21:18)
[2021-09-18 05:09] LABS: ALT (SGPT) 15 U/L (8-55); AST (SGOT) 16 U/L (5-34); Albumin 3.3 g/dL (3.4-4.8); Alkaline Phosphatase 51 U/L (40-110); Anion Gap 17 mmol/L (10-20); BUN (Urea Nitrogen) 19 mg/dL (8.4-25.7); Bilirubin, Total 1.2 mg/dL (0.2-1.2); Calc. Creatinine Clearance 56 mL/min (70-130); Calcium 8.4 mg/dL (7.8-10.44); Carbon Dioxide 21 mmol/L (23-31); Chloride 105 mmol/L (98-107); Estimated GFR 56; Globulin 2.9 g/dL (2.4-3.5); Glucose 219 mg/dL (83-110); Potassium 3.7 mmol/L (3.5-5.1); Protein, Total 6.2 g/dL (5.8-8.1); Sodium 139 mmol/L (136-145)
[2021-09-18 05:16] LABS: Band 29 % (5-11); Hemoglobin 14.4 g/dL (14.0-18.0); Lymphocytes 1 % (21-51); MDiff Complete? YES; Mean Corpuscular Hemoglobin 32.5 pg (27.0-31.0); Mean Corpuscular Volume 98.3 fL (78.0-98.0); Mean Platelet Volume 7.8 fL (7.4-10.4); Neutrophil 69 % (42-75); Platelet Count 155 thou/uL (130-400); Platelet Morphology Comment Appears Adequate; RBC Distribution Width 14.4 % (11.5-14.5); RBC Morphology Normal; Reactive Lymphocytes 1 % (0-10); Red Blood Cell (RBC) Count 4.44 mill/uL (4.70-6.10); White Blood Cell (WBC) Count 25.5 thou/uL (4.8-10.8)
[2021-09-18] MEDS: Norepinephrine 8 MG/0.9% NS 250 ML IVPB SCH (05:18)
[2021-09-18] MEDS: Cefepime 2 GM in Sodium Chloride 0.9% 100 ML IVPB SCH ×2 (08:04→21:17)
[2021-09-18] MEDS: Pantoprazole 40 MG VIAL IVP SCH ×2 (08:06→21:21)
[2021-09-18] MEDS: Vancomycin 1 GM in Premix Bag 1 BAG IVPB SCH ×2 (08:07→21:21)
[2021-09-18 20:59] LABS: Vancomycin, Trough 13.7 ug/mL
[2021-09-18] MEDS: Dextrose 5% in Water 1,000 ML IV SCH (23:29)
[2021-09-19] MEDS: Acetaminophen 500 MG TAB PO PRN (00:04)
[2021-09-19 04:33] LABS: ALT (SGPT) 14 U/L (8-55); AST (SGOT) 17 U/L (5-34); Albumin 2.9 g/dL (3.4-4.8); Alkaline Phosphatase 42 U/L (40-110); Anion Gap 14 mmol/L (10-20); BUN (Urea Nitrogen) 15 mg/dL (8.4-25.7); Bilirubin, Total 0.6 mg/dL (0.2-1.2); Calc. Creatinine Clearance 83 mL/min (70-130); Calcium 8.2 mg/dL (7.8-10.44); Carbon Dioxide 21 mmol/L (23-31); Chloride 107 mmol/L (98-107); Estimated GFR 88; Globulin 2.8 g/dL (2.4-3.5); Glucose 111 mg/dL (83-110); Potassium 3.6 mmol/L (3.5-5.1); Protein, Total 5.7 g/dL (5.8-8.1); Sodium 138 mmol/L (136-145)
[2021-09-19] MEDS: metroNIDAZOLE 500 MG in Premix Bag 1 BAG IVPB SCH ×3 (04:58→22:58)
[2021-09-19] MEDS ORDERED: Vancomycin 1 GM/200 ML BAG ONE (07:41)
[2021-09-19] MEDS: Cefepime 2 GM in Sodium Chloride 0.9% 100 ML IVPB SCH ×2 (07:57→20:06)
[2021-09-19] MEDS: Dextrose 5% in Water 1,000 ML IV SCH ×2 (07:58→17:46)
[2021-09-19] MEDS: Pantoprazole 40 MG VIAL IVP SCH ×2 (07:58→20:06)
[2021-09-19] MEDS: Vancomycin 1 GM in Premix Bag 1 BAG IVPB SCH ×2 (07:58→20:07)
[2021-09-19] MEDS ORDERED: Bupivacaine 0.25% HCL 30 ML VIAL ONE (08:09)
[2021-09-19] MEDS ORDERED: Lidocaine 1% w/Epinephrine 1:100K 20 ML VIAL ONE (08:09)
[2021-09-19] MEDS ORDERED: fentaNYL Citrate/PF 100 MCG/2 ML SYRINGE ONE (08:50)
[2021-09-19] MEDS ORDERED: PHENYLEPHRINE-NS 100 MCG/ML 10 ML SYRINGE ONE ×3 (09:09→12:02)
[2021-09-19] MEDS ORDERED: Ondansetron PF 4 MG/2 ML Vial ONE ×2 (09:09→10:06)
[2021-09-19] MEDS ORDERED: Esmolol 100 MG/10 ML VIAL ONE (09:09)
[2021-09-19] MEDS ORDERED: Rocuronium Bromide 10 MG/ML (10ML VIAL) ONE (09:09)
[2021-09-19] MEDS ORDERED: Calcium Chloride 1 GM/10 ML Abboject SYRINGE ONE (09:09)
[2021-09-19] MEDS ORDERED: Midazolam HCl 2 mg/2 ml Vial ONE (10:19)
[2021-09-19] MEDS ORDERED: Sodium Bicarb 50 MEQ/50 ML Abboject 8.4% SYRINGE ONE (10:41)
[2021-09-19] MEDS ORDERED: SUGAMMADEX SODIUM 200 MG/2 ML VIAL ONE (11:07)
[2021-09-19] MEDS ORDERED: Promethazine HCl 25 MG/ML VIAL IM PRN (11:31)
[2021-09-19] MEDS ORDERED: Calcium Carbonate 500 MG ChewTAB PO PRN (11:31)
[2021-09-19] MEDS ORDERED: Ondansetron PF 4 MG/2 ML Vial IVP PRN (11:31)
[2021-09-19] MEDS ORDERED: hydrALAZINE 20 MG/ML VIAL SLOW IVP PRN (11:31)
[2021-09-19] MEDS ORDERED: Dextrose 50% Abboject 50 ML SYRINGE SLOW IVP PRN (11:31)
[2021-09-19] MEDS ORDERED: Mag-Al 1200 mg/1200 mg/30 ML UDCUP PO PRN (11:31)
[2021-09-19] MEDS ORDERED: Dextrose 5% in Water 1,000 ML IV PRN (11:31)
[2021-09-19] MEDS ORDERED: Fentanyl 100 MCG/2 ML VIAL ONE (11:56)
[2021-09-19] MEDS ORDERED: Phenylephrine 10 MG/ML VIAL ONE (12:02)
[2021-09-19 12:11] LABS: ALV-art Gradient 177.125 mmHg (0-20); Actual Bicarbonate (HCO3a) 22.1 mEq/L (22-28); Base Excess (BEa) -2.7 mEq/L (-2.0 to +3.0); CO2 Tension 38.3 mmHg (35.0-45.0); Carboxyhemoglobin (COHb) 0.3 gm% (0.0-3.0); Hemoglobin (Hb) 12.4 g/dL (14.0-18.0); O2 Tension (PaO2), arterial 131.5 mmHg (> 70.0); Potassium - ABG Lab 3.61 mmol/L (3.70-5.30); Puncture Site Arterial Line; pH, Arterial 7.38 (7.35-7.45)
[2021-09-19] MEDS ORDERED: Fentanyl 100 MCG/2 ML VIAL SLOW IVP PRN (12:22)
[2021-09-19] MEDS ORDERED: Phenylephrine 40 MG/NS 250 ML 250 ML IVPB SCH (12:30)
[2021-09-19] MEDS ORDERED: Ketorolac Tromethamine 30 MG/ML VIAL ONE (12:37)
[2021-09-19] MEDS: Ketorolac Tromethamine 30 MG/ML VIAL IVP SCH ×3 (12:40→22:58)
[2021-09-19] MEDS: Sodium Chloride 0.9% 1,000 ML IV SCH ×2 (14:30→22:58)
[2021-09-19] MEDS: Famotidine 20 MG TAB PO SCH (20:03)
[2021-09-19] MEDS: Famotidine/PF 20 mg/2ml Vial SLOW IVP SCH (20:06)
[2021-09-20] MEDS: Morphine 2 MG/ML VIAL SLOW IVP PRN (00:36)
[2021-09-20] MEDS: metroNIDAZOLE 500 MG in Premix Bag 1 BAG IVPB SCH ×3 (05:01→22:16)
[2021-09-20] MEDS: Ketorolac Tromethamine 30 MG/ML VIAL IVP SCH ×3 (05:02→17:20)
[2021-09-20] MEDS: Sodium Chloride 0.9% 1,000 ML IV SCH ×2 (05:15→16:25)
[2021-09-20 05:42] LABS: ALT (SGPT) 17 U/L (8-55); AST (SGOT) 23 U/L (5-34); Albumin 2.5 g/dL (3.4-4.8); Alkaline Phosphatase 37 U/L (40-110); Anion Gap 13 mmol/L (10-20); BUN (Urea Nitrogen) 14 mg/dL (8.4-25.7); Bilirubin, Total 0.5 mg/dL (0.2-1.2); Calc. Creatinine Clearance 90 mL/min (70-130); Calcium 7.9 mg/dL (7.8-10.44); Carbon Dioxide 21 mmol/L (23-31); Chloride 109 mmol/L (98-107); Estimated GFR 90; Globulin 2.3 g/dL (2.4-3.5); Glucose 113 mg/dL (83-110); Potassium 3.8 mmol/L (3.5-5.1); Protein, Total 4.8 g/dL (5.8-8.1); Sodium 139 mmol/L (136-145)
[2021-09-20 06:13] LABS: #Eosinphils 0.2 thou/uL (0.0-0.7); #Lymphocytes 1.6 thou/uL (1.20-3.40); #Monocytes 0.4 thou/uL (0.11-0.59); %Basophils 0.5 % (0.0-1.0); %Eosinophils 2.6 % (0.0-10.0); %Lymphocytes 21.7 % (21.0-51.0); %Monocytes 5.7 % (0.0-10.0); %Neutrophils 69.5 % (42.0-75.0); Hemoglobin 10.4 g/dL (14.0-18.0); Mean Corpuscular HGB CONC 33.1 g/dL (32.0-36.0); Mean Corpuscular Hemoglobin 32.5 pg (27.0-31.0); Mean Platelet Volume 7.6 fL (7.4-10.4); Platelet Count 102 thou/uL (130-400); Platelet Morphology Comment Appears Decreased; RBC Distribution Width 14.2 % (11.5-14.5); Red Blood Cell (RBC) Count 3.21 mill/uL (4.70-6.10); White Blood Cell (WBC) Count 7.3 thou/uL (4.8-10.8)
[2021-09-20 08:26] LABS: Vancomycin, Trough 17.3 ug/mL
[2021-09-20] MEDS: Cefepime 2 GM in Sodium Chloride 0.9% 100 ML IVPB SCH ×2 (09:14→19:30)
[2021-09-20] MEDS: Pantoprazole 40 MG VIAL IVP SCH ×2 (09:15→19:31)
[2021-09-20] MEDS: Famotidine/PF 20 mg/2ml Vial SLOW IVP SCH ×2 (09:15→19:30)
[2021-09-20] MEDS: Famotidine 20 MG TAB PO SCH (09:16)
[2021-09-20] MEDS: Vancomycin 1 GM in Premix Bag 1 BAG IVPB SCH ×2 (10:46→19:31)
[2021-09-20] MEDS ORDERED: HYDROcodone/Acetaminophen 7.5/325 mg Tablet PO PRN (12:10)
[2021-09-20 12:33] LABS: Hemoglobin 10.3 g/dL (14.0-18.0)
[2021-09-20] MEDS: Carvedilol 3.125 MG TAB PO SCH (17:20)
[2021-09-20] MEDS: Atorvastatin Calcium 40 MG TAB PO SCH (19:30)
[2021-09-20] MEDS: HYDROcodone/Acetaminophen 7.5/325 mg Tablet PO PRN (22:15)
[2021-09-21] MEDS: Ketorolac Tromethamine 30 MG/ML VIAL IVP SCH ×5 (02:16→22:57)
[2021-09-21] MEDS: metroNIDAZOLE 500 MG in Premix Bag 1 BAG IVPB SCH ×3 (06:10→22:45)
[2021-09-21] MEDS: Famotidine/PF 20 mg/2ml Vial SLOW IVP SCH ×2 (09:42→22:45)
[2021-09-21] MEDS: Allopurinol 300 MG TAB PO SCH (09:42)
[2021-09-21] MEDS: Carvedilol 3.125 MG TAB PO SCH ×2 (09:42→16:29)
[2021-09-21] MEDS: Pantoprazole 40 MG VIAL IVP SCH ×2 (09:42→22:46)
[2021-09-21] MEDS: Aspirin 81 mg Enteric Coated Tablet PO SCH (09:42)
[2021-09-21] MEDS: Amiodarone 200 MG TAB PO SCH (09:42)
[2021-09-21] MEDS: Vancomycin 1 GM in Premix Bag 1 BAG IVPB SCH ×2 (09:43→22:44)
[2021-09-21] MEDS: Cefepime 2 GM in Sodium Chloride 0.9% 100 ML IVPB SCH ×2 (09:43→22:58)
[2021-09-21] MEDS ORDERED: Furosemide 40 MG TAB PO SCH (11:45)
[2021-09-21] MEDS: Atorvastatin Calcium 40 MG TAB PO SCH (22:47)
[2021-09-21] MEDS: HYDROcodone/Acetaminophen 7.5/325 mg Tablet PO PRN (22:48)
[2021-09-22] MEDS: Ketorolac Tromethamine 30 MG/ML VIAL IVP SCH ×2 (06:09→11:31)
[2021-09-22] MEDS: metroNIDAZOLE 500 MG in Premix Bag 1 BAG IVPB SCH (06:10)
[2021-09-22 08:52] LABS: Anion Gap 10 mmol/L (10-20); BUN (Urea Nitrogen) 8 mg/dL (8.4-25.7); Calc. Creatinine Clearance 97 mL/min (70-130); Calcium 8.2 mg/dL (7.8-10.44); Carbon Dioxide 24 mmol/L (23-31); Chloride 110 mmol/L (98-107); Estimated GFR 92; Glucose 107 mg/dL (83-110); Potassium 3.1 mmol/L (3.5-5.1); Sodium 141 mmol/L (136-145)
[2021-09-22 08:57] LABS: Band 10 % (5-11); Eosinophils 3 % (0-10); Hemoglobin 9.6 g/dL (14.0-18.0); Lymphocytes 24 % (21-51); MDiff Complete? YES; Mean Corpuscular HGB CONC 34.2 g/dL (32.0-36.0); Mean Corpuscular Hemoglobin 32.6 pg (27.0-31.0); Mean Corpuscular Volume 95.5 fL (78.0-98.0); Mean Platelet Volume 6.4 fL (7.4-10.4); Monocytes 4 % (0-10); Neutrophil 56 % (42-75); Platelet Count 145 thou/uL (130-400); Platelet Morphology Comment Appears Adequate; Polychromasia SLIGHT = 2-3 cells (100X) (0-2/hpf); RBC Distribution Width 13.9 % (11.5-14.5); Reactive Lymphocytes 3 % (0-10); Red Blood Cell (RBC) Count 2.94 mill/uL (4.70-6.10); White Blood Cell (WBC) Count 5.7 thou/uL (4.8-10.8)
[2021-09-22] MEDS: Amiodarone 200 MG TAB PO SCH (09:03)
[2021-09-22] MEDS: Famotidine/PF 20 mg/2ml Vial SLOW IVP SCH (09:03)
[2021-09-22] MEDS: Carvedilol 3.125 MG TAB PO SCH (09:03)
[2021-09-22] MEDS: Aspirin 81 mg Enteric Coated Tablet PO SCH (09:03)
[2021-09-22] MEDS: Allopurinol 300 MG TAB PO SCH (09:03)
[2021-09-22] MEDS: Cefepime 2 GM in Sodium Chloride 0.9% 100 ML IVPB SCH (09:04)
[2021-09-22] MEDS: Pantoprazole 40 MG VIAL IVP SCH (09:04)
[2021-09-22] MEDS: Vancomycin 1 GM in Premix Bag 1 BAG IVPB SCH (09:47)
[2021-09-22] MEDS ORDERED: Potassium Chloride 20 MEQ TAB PO SCH (13:45)
[2021-09-22] MEDS ORDERED: metroNIDAZOLE 500 MG TAB PO SCH (15:00)
[2021-09-22 15:18] VITALS: BP 105/59; TEMP 98.3
== END 2021-09-22 15:20 | disposition home or self-care (01) | DRG 853 ==
LOC: ERS 00:39 → ERHOLD 04:17 → IMCU/EMU 10:19 → CCU 22:43 → 2NO 09-18 23:29 → CCU 09-19 12:14 → 2NO 09-20 22:09
PROVIDERS: ADMIT Internal Medicine; ATTEND Internal Medicine
PROC: 0F9430Z Drainage of Gallbladder with Drainage Device, Percutaneous Approach (ICD-10-PCS; 2021-09-17)
PROC: 06HY33Z Insertion of Infusion Device into Lower Vein, Percutaneous Approach (ICD-10-PCS; 2021-09-17)
PROC: 3E03329 Introduction of Other Anti-infective into Peripheral Vein, Percutaneous Approach (ICD-10-PCS; 2021-09-17)
PROC: 0FT40ZZ Resection of Gallbladder, Open Approach (ICD-10-PCS; principal; 2021-09-19)
PROC: 0FJ44ZZ Inspection of Gallbladder, Percutaneous Endoscopic Approach (ICD-10-PCS; 2021-09-19)
DX: A41.9 Sepsis, unspecified organism (principal); R65.21 Severe sepsis with septic shock; J96.90 Respiratory failure, unspecified, unspecified whether with hypoxia or hypercapnia; I50.22 Chronic systolic (congestive) heart failure; K81.0 Acute cholecystitis; I13.0 Hypertensive heart and chronic kidney disease with heart failure and stage 1 through stage 4 chronic kidney disease, or unspecified chronic kidney disease; I25.5 Ischemic cardiomyopathy; I25.10 Atherosclerotic heart disease of native coronary artery without angina pectoris; N18.30 Chronic kidney disease, stage 3 unspecified; E11.22 Type 2 diabetes mellitus with diabetic chronic kidney disease; D64.9 Anemia, unspecified; I48.0 Paroxysmal atrial fibrillation; E78.5 Hyperlipidemia, unspecified; Z20.822 Contact with and (suspected) exposure to COVID-19; Z90.49 Acquired absence of other specified parts of digestive tract; I25.2 Old myocardial infarction; Z95.5 Presence of coronary angioplasty implant and graft; Z95.810 Presence of automatic (implantable) cardiac defibrillator; Z88.0 Allergy status to penicillin; Z95.1 Presence of aortocoronary bypass graft
CPT/HCPCS: 36415; 36416; 49020; 71045; 74177; 77002; 80048; 80053; 80202; 81003; 81015; 82805; 83605; 83690; 83735; 83880; 85025; 85060; 86850; 86900; 86901; 87040; 87070; 87205; 88304; 89051; 93005; 96374; 96375; C1713; C1729; C9113; J0692; J1250; J1885; J2250; J2270; J2370; J2405; J3010; J3370; J3490; J7042; J7050; J7070; Q9967; S0020; S0028; U0002

== ENCOUNTER 2022-05-15 15:04 | Outpatient (CLI) | payer MEDICARE, BC ==
[2022-05-15 16:57] LABS: Hemoglobin 11.5 g/dL (13.5-17.5); Mean Corpuscular HGB CONC 31.4 g/dL (32.0-36.0); Mean Corpuscular Hemoglobin 27.6 pg (27.0-33.0); Mean Corpuscular Volume 87.8 fl (81.2-95.1); Mean Platelet Volume 9.5 fl (7.4-10.4); Platelet Count 241 10x3/uL (150-450); RBC Distribution Width 16.6 % (11.5-14.5); Red Blood Cell (RBC) Count 4.17 10x6/uL (4.32-5.72); White Blood Cell (WBC) Count 6.8 10x3/uL (3.5-10.5)
[2022-05-15 17:02] LABS: INR-International Normal Ratio 1.1; PTT 26.2 sec (22.0-33.0); Prothrombin Time 11.6 sec (9.5-12.1)
[2022-05-15 17:08] LABS: Anion Gap 18 mmol/L (10-20); BUN (Urea Nitrogen) 25 mg/dL (8.4-25.7); Calc. Creatinine Clearance 0 mL/min (70-130); Calcium 9.4 mg/dL (7.8-10.44); Carbon Dioxide 26 mmol/L (23-31); Chloride 103 mmol/L (98-107); Estimated GFR 45; Glucose 122 mg/dL (83-110); Potassium 3.7 mmol/L (3.5-5.1); Sodium 143 mmol/L (136-145)
== END 2022-05-15 15:05 | disposition home or self-care (01) ==
LOC: LABBT 15:04
PROVIDERS: ATTEND Internal Medicine Cardiovascular Disease
DX: Z01.812 Encounter for preprocedural laboratory examination (principal); I50.22 Chronic systolic (congestive) heart failure
CPT/HCPCS: 80048; 85027; 85610; 85730

== ENCOUNTER 2022-05-19 05:47 | Day surgery (SDC) | payer MEDICARE, BC ==
[2022-05-16 11:51] VITALS: BMI 25.1
[2022-05-19] MEDS ORDERED: Gentamicin 80 MG/2 ML VIAL ONE ×2 (06:59→10:53)
[2022-05-19] MEDS ORDERED: Lidocaine 1% (PF) 30 ML VIAL ONE (06:59)
[2022-05-19] MEDS ORDERED: Clindamycin/D5W 900 mg/50 ml Premix Bag ONE (06:59)
[2022-05-19] MEDS ORDERED: Midazolam HCl 2 mg/2 ml Vial ONE (07:06)
[2022-05-19] MEDS ORDERED: Dexmedetomidine 200 MCG/2 ML VIAL ONE (07:06)
[2022-05-19] MEDS ORDERED: fentaNYL PF 100 MCG/2 ML SYRINGE ONE (07:06)
[2022-05-19] MEDS ORDERED: Propofol 1,000 MG/100 ML VIAL IV ONE (07:11)
[2022-05-19] MEDS ORDERED: Ketamine 50 MG/ML (10ML VIAL) ONE (07:59)
[2022-05-19] MEDS ORDERED: PROPOFOL 200 MG/20 ML VIAL ONE (08:16)
[2022-05-19] MEDS ORDERED: Iopamidol 370 76% 100 ML VIAL ONE (08:31)
[2022-05-19] MEDS ORDERED: Promethazine HCl 25 MG/ML VIAL IM PRN (10:59)
[2022-05-19] MEDS ORDERED: Ondansetron HCl/PF 4 MG/2 ML Vial IVP PRN (10:59)
[2022-05-19] MEDS ORDERED: Ondansetron PF 4 MG/2 ML Vial ONE ×2 (12:03→13:27)
== END 2022-05-19 16:35 | disposition home or self-care (01) ==
LOC: SDC 05:47
PROVIDERS: ATTEND Internal Medicine Cardiovascular Disease
PROC: 0JPT0PZ Removal of Cardiac Rhythm Related Device from Trunk Subcutaneous Tissue and Fascia, Open Approach (ICD-10-PCS; principal; 2022-05-19)
PROC: 0JH609Z Insertion of Cardiac Resynchronization Defibrillator Pulse Generator into Chest Subcutaneous Tissue and Fascia, Open Approach (ICD-10-PCS; 2022-05-19)
PROC: 02HL3KZ Insertion of Defibrillator Lead into Left Ventricle, Percutaneous Approach (ICD-10-PCS; 2022-05-19)
PROC: 3E0102A Introduction of Anti-Infective Envelope into Subcutaneous Tissue, Open Approach (ICD-10-PCS; 2022-05-19)
DX: I11.0 Hypertensive heart disease with heart failure (principal); I50.22 Chronic systolic (congestive) heart failure; I25.5 Ischemic cardiomyopathy; I47.20 Ventricular tachycardia, unspecified; I44.30 Unspecified atrioventricular block; I25.10 Atherosclerotic heart disease of native coronary artery without angina pectoris; E11.9 Type 2 diabetes mellitus without complications; I49.5 Sick sinus syndrome; I25.2 Old myocardial infarction; E78.00 Pure hypercholesterolemia, unspecified; Z79.01 Long term (current) use of anticoagulants; Z79.82 Long term (current) use of aspirin; Z79.84 Long term (current) use of oral hypoglycemic drugs; Z79.85 Long-term (current) use of injectable non-insulin antidiabetic drugs; Z79.899 Other long term (current) drug therapy; Z88.0 Allergy status to penicillin; Z95.1 Presence of aortocoronary bypass graft; Z95.810 Presence of automatic (implantable) cardiac defibrillator
CPT/HCPCS: 33225; 33241; 33249; 33264; 71045; 93005; 93641; C1763; C1769; C1882; C1900; J1580; J2001; J2250; J2405; J2704; J3490; Q9967